=== PATIENT | male | born 1960 | race Caucasian/White ===

== ENCOUNTER 2022-06-23 00:29 | Emergency (ER) | payer MEDICARE, MEDICAID, SELFPAY ==
[2022-06-23 00:40] VITALS: BP 164/94; RESP 18; TEMP 36.6
--- NOTE | 2022-06-23 00:45 | CRLHL7_ITS ---
For Patients: As a result of the Century Cures Act, medical imaging exams and procedure reports are released immediately into your electronic medical record. You may view this report before your referring provider. If you have questions, please contact your health care provider. INDICATION: Status post fall with head trauma. COMPARISON: CT of the head from 07/23/2020 TECHNIQUE: CT examination of the head was performed with 3 mm thick axial and 2 mm thick coronal and sagittal sections without intravenous contrast. Images were obtained from the vertex of the skull through the skull base, and I examined the images with the brain and bone windows. Please note that all CT scans at this facility use dose modulation, iterative reconstruction, and/or weight-based dosing when appropriate to reduce radiation dose to as low as reasonably achievable. FINDINGS: There is stable mild dilatation of the ventricles and sulci representing age-appropriate atrophy. The brain is otherwise normal in appearance for the patient`s age on today`s study, with no sign of mass lesion, mass effect, hemorrhage, or edema. The visualized portions of the orbits are normal in appearance. The visualized paranasal sinuses and mastoids are clear. The osseous structures are normal in their appearance with no sign of abnormality in the skull base or calvarium. IMPRESSION: No sign of closed head injury. Stable mild cerebral atrophy. Normal noncontrast CT of the head for the patient`s age. Please note that all CT scans at this facility use dose modulation, iterative reconstruction, and/or weight-based dosing when appropriate to reduce radiation dose to as low as reasonably achievable. Dictated by Jose Sanford MD @ 06/23/2022 1:43:06 AM (Electronically Signed)
--- NOTE | 2022-06-23 00:56 | ED.NURSE ---
security sees pt car on camera and appears to have drove self in.
[2022-06-23 01:29] LABS: Basophils Absolute Auto 0.02 K/uL (0.00-0.30); Basophils Percent Auto 0.2 % (0.0-3.0); Eosinophils Absolute Auto 0.08 K/uL (0.00-0.50); Eosinophils Percent Auto 0.8 % (0.0-7.0); Hematocrit 38.9 % (37.0-53.0); Hemoglobin* 13.3 gm/dL (13.5-17.5); Immature Granulocytes Abs Auto 0.03 K/uL (0.00-0.30); Lymphocytes Absolute Auto 2.57 K/uL (0.90-2.90); Lymphocytes Percent Auto 25.5 % (20-44); Mean Corpuscular HGB Conc 34 gm/dL (32-36); Mean Corpuscular Hemoglobin 30 pg (26-34); Mean Corpuscular Volume 87 fL (80-100); Monocytes Percent Auto 9.7 % (0.0-11.0); Neutrophils Absolute Auto 6.38 K/uL (1.7-7.0); Neutrophils Percent Auto 63.5 % (42.0-72.0); Platelet Count* 222 K/uL (140-440); RDW Coefficient of Variation % 12.2 % (11.5-15.5); Red Blood Count 4.47 m/uL (4.30-5.90); White Blood Count* 10.06 K/uL (4.50-11.00)
[2022-06-23 01:36] LABS: Slide Review Reflex No
[2022-06-23 02:00] VITALS: BP 164/94; PULSE 78; RESP 18; TEMP 36.6; O2SAT 98
[2022-06-23 02:04] LABS: Chloride* 101 mmol/L (96-114)
[2022-06-23 02:05] LABS: Potassium* 3.5 mmol/L (3.6-5.1); Sodium* 136 mmol/L (135-149)
[2022-06-23 02:07] LABS: Creatinine* 0.9 mg/dL (0.5-1.5); Estimated Glomerular Filt Rate 96 ml/min
[2022-06-23 02:08] LABS: Alanine Aminotransferase* 35 U/L (4-50); Alkaline Phosphatase* 137 U/L (40-150); Aspartate Amino Transferase* 42 U/L (12-35); Bilirubin Direct* 0.2 mg/dL (0.0-0.5); Bilirubin Total* 0.6 mg/dL (0.1-1.5); Blood Urea Nitrogen* 12 mg/dL (7-30); Calcium* 8.4 mg/dL (8.4-10.6); Carbon Dioxide* 31 mmol/L (20-32); Glucose* 96 mg/dL (60-115); Total Protein* 6.9 g/dL (6.0-8.3)
[2022-06-23 02:11] LABS: C Reactive Protein* < 0.5 mg/dL (0.5-1.0); Ethanol* < 0.01 % (0.01-0.03)
--- NOTE | 2022-06-23 02:31 | ED_ITS ---
HPI - General Adult General Date Seen: 06/23/22 Chief complaint: Fall/Minor Trauma Stated complaint: Passed out, hit head, Dizzy, vomiting Time Seen by Provider: 06/23/22 00:47 Source: patient History of Present Illness HPI narrative: Patient is a 62-year-old male who comes in after a fall earlier tonight. He says that he was getting ready to get the shower when he started to feel dizzy. He woke up sometime later having fallen, he hit his head he thinks on the bench in the shower. He is not sure how long he was unconscious, but there was a show on the TV that had progressed to some degree, making him think that he was out for some period of time. He says he remembers feeling dizzy, he does not remember having any palpitations or chest pain, feeling short of breath, or otherwise symptomatic. He says he has never passed out before, but he does say that he had an episode of low blood pressure here in the ER once where people ran and brought the crash cart. He says that nothing else really happened, but he knows that his blood pressure was low. Since then, he has not had any problems. I did see him back in January for kidney stones, and at that time he was scheduled to follow-up with Cardiology. He does have a history of some angina I believe which has been medically managed, he has never had any stents or bypass surgery. He tells me that he ended up having COVID and was unable to make that appointment, but also tells me he has not needed any nitroglycerin since I saw him last.Since hitting his head, he has had a mild headache. This was at 5:00 p.m.. He comes into the ER at 1:00 a.m.. He says he was not going to come in at all, but his girlfriend insisted that he get checked out. He has vomited a couple of times, he says he does not feel nauseated now, but he did vomit once after arriving here. He had an episode of dizziness as well, which he says was because he stood up too fast. He has not had any further fainting. He did not lose bowel or bladder control, did not bite his tongue, does not re port any postictal type symptoms, although he was alone at the time of this episode. He has a couple of red hammonds on his forehead, denies any other injuries from the fall. Denies neck pain. Denies any chest or back pain, extremity pain. Denies any substance use. Drove himself here. Related Data Home Medications Medication Instructions Recorded Confirmed acyclovir 400 mg tablet 400 mg PO Q12H 06/23/22 06/23/22 albuterol sulfate 90 mcg/actuation 2 puff inhalation Q4H PRN 06/23/22 06/23/22 aerosol inhaler buspirone 10 mg tablet 10 mg PO TID PRN 06/23/22 06/23/22 cyclobenzaprine 10 mg tablet 10 mg PO TID PRN 06/23/22 06/23/22 escitalopram oxalate 10 mg tablet 10 mg PO DAILY 06/23/22 06/23/22 famotidine 40 mg tablet 40 mg PO Q12H 06/23/22 06/23/22 gabapentin 600 mg tablet 600 mg PO TID 06/23/22 06/23/22 hydralazine 10 mg tablet 10 mg PO BID 06/23/22 06/23/22 isosorbide mononitrate 30 mg 30 mg PO DAILY 06/23/22 06/23/22 tablet,extended release 24 hr linaclotide 290 mcg capsule 290 mcg PO DAILY 06/23/22 06/23/22 (Linzess) metoprolol tartrate 25 mg tablet 25 mg PO BID 06/23/22 06/23/22 mirtazapine 15 mg tablet 15 mg PO DAILY 06/23/22 06/23/22 nitroglycerin 0.4 mg sublingual 0.4 mg sublingual Q5M PRN 06/23/22 06/23/22 tablet oxycodone-acetaminophen 10 mg-325 1 tab PO Q6H PRN 06/23/22 06/23/22 mg tablet quetiapine 200 mg tablet 200 mg PO HS 06/23/22 06/23/22 quetiapine 50 mg tablet 50 mg PO BID 06/23/22 06/23/22 rosuvastatin 40 mg tablet 40 mg PO HS 06/23/22 06/23/22 trazodone 50 mg tablet 50 mg PO HS 06/23/22 06/23/22 Allergies Allergy/AdvReac Type Severity Reaction Status Date / Time duloxetine Allergy Severe Swelling Verified 06/23/22 01:41 of Lips/Tongue tramadol Allergy Severe Seizure Verified 06/23/22 01:41 amitriptyline Allergy Intermediate Blacks Out Verified 06/23/22 01:41 amlodipine [From Norvasc] Allergy Intermediate Edema Verified 06/23/22 01:41 citalopram Allergy Intermediate Verified 06/23/22 01:41 fluoxetine [From Prozac] Allergy Intermediate Verified 06/23/22 01:41 paroxetine [From Paxil] Allergy Intermediate Blacks Out Verified 06/23/22 01:41 hydrocodone Allergy Mild Dermatitis Verified 06/23/22 01:41 Review of Systems Status of ROS: Reports: 10 or more systems reviewed and unremarkable except as noted in History and below [facility] Medical History No significant past medical history Surgical History No significant past surgical history Social History Smoking Status: Former smoker How often do you have a drink containing alcohol: never How often do you have six or more drinks on one occasion: Never AUDIT-C Alcohol total score: 0 Non-prescribed substance use: denies use Exam Narrative: Exam Narrative: Vital signs as noted above. In general, an alert, well-appearing patient. Head: Normocephalic, he has 2 red abrasion type hammonds on his forehead. No lacerations or hematomas. No other head trauma. Eyes: Pupils are equal reactive. Extraocular movements are full. Conjunctivae are normal. ENT: Mucous membranes are moist. Throat is normal. No facial trauma. Neck: Supple without lymphadenopathy. Nontender to palpation. Heart: Regular rate and rhythm. No murmur or rub. Lungs: Clear bilaterally. No increased work of breathing, crackles or wheezes. Chest trauma. Abdomen: Soft and nontender. No organomegaly. Back: Nontender to palpation. Extremities: Well perfused. No edema. No calf tenderness. Pulses intact. Neurologic: Patient is alert and oriented to person and place. Speech is fluent. Face is symmetric. Moves all extremities equally. Affect: Normal. Skin: Warm and dry. Well perfused. Otherwise atraumatic. Const: Vital Signs, click to edit/add: Vital Signs - 24 hr 06/23/22 00:40 06/23/22 02:00 06/23/22 03:12 Temperature 97.8 F 97.8 F 97.8 F Pulse Rate [Pulse Oximeter] 78 78 Respiratory Rate 18 18 18 Blood Pressure [Ri ght Upper Arm] 164/94 H 164/94 H 154/84 H Pulse Oximetry 98 Oxygen Delivery Me thod Room Air Room Air Course Course Hospital Course: On arrival, patient had an EKG which by my review showed a normal sinus rhythm, ventricular rate of 72 beats per minute. Overall, EKG is normal. He has a mm of ST elevation in V2 only. No reciprocal ST depression. As I look through old EKGs, V2 shows a hint of ST elevation in previous EKGs although not to the degree of this EKG. I did repeat his EKG about an hour and half later. It remains unchanged with the same approximately [address] elevation in lead V2. A point of care troponin was 0. Given that he presented to the ER about 8 hours after this event, my suspicion of this representing anything ischemic was very low. He did go over for head CT, by my review this did not show any evidence of intracranial hemorrhage. The final radiology report is as follows:No sign of closed head injury. Stable mild cerebral atrophy. Normal noncontrast CT of the head for the patient`s age. I did elect to check some other labs, which are overall unremarkable. His white blood cell count is 10, hemoglobin is 13.3. Potassium is 3.5, otherwise electrolytes are all and tired early normal. LFTs are unremarkable. CRP is normal. Blood alcohol is 0. I am going to check a 2nd troponin, and assuming this is normal, I think it is reasonable to let him go home. The etiology of his syncopal episode remains unclear. He will need follow-up with primary care. I do not think it is impossible that this could represent a seizure, particularly with the prolonged duration that he feels that he was unconscious. A cardiac etiology obviously also cannot be ruled out. I think orthostasis is less likely given the absence of any reason for him to be dehydrated, and with out any evidence of hypotension or tachycardia here. I do not have any reason to suspect pulmonary embolism therefore I did not do a D-dimer; he is not short of breath, hypoxic, tachycardic, does not have any specific risk factors. In terms of his head injury, he has had a couple episodes of vomiting now and has a mild headache, discussed that at a minimum I think he has a mild concussion, and we discussed what to expect from that standpoint. However, there is no evidence of more severe head injury. Vital Signs Vital signs: Initial Vital Signs Temperature 97.8 F 06/23/22 00:40 Temperature Source Temporal Artery Scan 06/23/22 00:40 Pulse Rhythm 06/23/22 00:40 Pulse Strength 3+ Normal 06/23/22 00:40 Respiratory Rate 18 06/23/22 00:40 Blood Pressure 164/94 H 06/23/22 00:40 Blood Pressure Mean 117 06/23/22 00:40 Blood Pressure Position Supine 06/23/22 00:40 Oxygen Delivery Method 06/23/22 00:40 Vital Signs Temperature 97.8 F 06/23/22 00:40 Respiratory Rate 18 06/23/22 00:40 Blood Pressure 164/94 H 06/23/22 00:40 Oxygen Delivery Method 06/23/22 00:40 Temperature 97.8 F 06/23/22 03:12 Pulse Rate 78 06/23/22 03:12 Respiratory Rate 18 06/23/22 03:12 Blood Pressure 154/84 H 06/23/22 03:12 Pulse Oximetry 98 06/23/22 02:00 Oxygen Delivery Method 06/23/22 02:00 Medical Decision Making Lab Data Labs: Lab Results 06/23/22 06/23/22 06/23/22 Range/Units 01:20 01:20 01:20 WBC 10.06 (4.50-11.00) K/uL RBC 4.47 (4.30-5.90) m/uL Hgb 13.3 L (13.5-17.5) gm/dL Hct 38.9 (37.0-53.0) % MCV 87 (80-100) fL MCH 30 (26-34) pg MCHC 34 (32-36) gm/dL RDW Coeff of Ron 12.2 (11.5-15.5) % Plt Count 222 (140-440) K/uL Neut % (Auto) 63.5 (42.0-72.0) % Lymph % (Auto) 25.5 (20-44) % [place] % (Auto) 9.7 (0.0-11.0) % Eos % (Auto) 0.8 (0.0-7.0) % Baso % (Auto) 0.2 (0.0-3.0) % Neut # (Auto) 6.38 (1.7-7.0) K/uL Lymph # (Auto) 2.57 (0.90-2.90) K/uL [place] # (Auto) 1.00 H (0.00-0.90) K/UL Eos # (Auto) 0.08 (0.00-0.50) K/uL Baso # (Auto) 0.02 (0.00-0.30) K/uL Abs Immat Gran (auto) 0.03 (0.00-0.30) K/uL Sodium 136 (135-149) mmol/L Potassium 3.5 L (3.6-5.1) mmol/L Chloride 101 (96-114) mmol/L Carbon Dioxide 31 (20-32) mmol/L BUN 12 (7-30) mg/dL Creatinine 0.9 (0.5-1.5) mg/dL Estimated GFR 96 ml/min Glucose 96 (60-115) mg/dL Lactate Cancelled Calcium 8.4 (8.4-10.6) mg/dL Total Bilirubin 0.6 (0.1-1.5) mg/dL Direct Bilirubin 0.2 (0.0-0.5) mg/dL AST 42 H (12-35) U/L ALT 35 (4-50) U/L Alkaline Phosphatase 137 (40-150) U/L C-Reactive Protein < 0.5 L (0.5-1.0) mg/dL Total Protein 6.9 (6.0-8.3) g/dL Albumin 4.0 (3.3-5.0) g/dL Ethyl Alcohol < 0.01 L (0.01-0.03) % POC Troponin I (0.01-0.04) ng/ml 06/23/22 06/23/22 Range/Units 01:20 02:50 WBC (4.50-11.00) K/uL RBC (4.30-5.90) m/uL Hgb (13.5-17.5) gm/dL Hct (37.0-53.0) % MCV (80-100) fL MCH (26-34) pg MCHC (32-36) gm/dL RDW Coeff of Ron (11.5-15.5) % Plt Count (140-440) K/uL Neut % (Auto) (42.0-72.0) % Lymph % (Auto) (20-44) % [place] % (Auto) (0.0-11.0) % Eos % (Auto) (0.0-7.0) % Baso % (Auto) (0.0-3.0) % Neut # (Auto) (1.7-7.0) K/uL Lymph # (Auto) (0.90-2.90) K/uL [place] # (Auto) (0.00-0.90) K/UL Eos # (Auto) (0.00-0.50) K/uL Baso # (Auto) (0.00-0.30) K/uL Abs Immat Gran (auto) (0.00-0.30) K/uL Sodium (135-149) mmol/L Potassium (3.6-5.1) mmol/L Chloride (96-114) mmol/L Carbon Dioxide (20-32) mmol/L BUN (7-30) mg/dL Creatinine (0.5-1.5) mg/dL Estimated GFR ml/min Glucose (60-115) mg/dL Lactate Calcium (8.4-10.6) mg/dL Total Bilirubin (0.1-1.5) mg/dL Direct Bilirubin (0.0-0.5) mg/dL AST (12-35) U/L ALT (4-50) U/L Alkaline Phosphatase (40-150) U/L C-Reactive Protein (0.5-1.0) mg/dL Total Protein (6.0-8.3) g/dL Albumin (3.3-5.0) g/dL Ethyl Alcohol (0.01-0.03) % POC Troponin I 0.00 L 0.00 L (0.01-0.04) ng/ml Discharge Plan Discharge Clinical Impression: Concussion, Syncope Patient Disposition: Home, Self-Care Condition: Improved Instructions: Syncope (DC), Concussion (ED) Additional Instructions: If you have any further syncopal episodes, return for re-evaluation. Otherwise, primary care and cardiology follow-up as discussed. Prescriptions: No Action acyclovir 400 mg tablet 400 mg PO Q12H Label Comments: TAKE ONE TABLET BY MOUTH TWICE DAILY albuterol sulfate 90 mcg/actuation HFA aerosol inhaler 2 puff INHALATION Q4H PRN Label Comments: Inhale 2 puffs by mouth into the lungs every 4 (four) hours as needed. buspirone 10 mg tablet 10 mg PO TID PRN Label Comments: Take 1 tablet (10 mg) by mouth 3 times a day as needed (anxiety). cyclobenzaprine 10 mg tablet 10 mg PO TID PRN Label Comments: TAKE 1 TABLET BY MOUTH 3 TIMES DAILY NEEDED FOR MUSCLE SPASMS escitalopram oxalate 10 mg tablet 10 mg PO DAILY famotidine 40 mg tablet 40 mg PO Q12H Label Comments: Take 1 tablet (40 mg) by mouth twice a day. gabapentin 600 mg tablet 600 mg PO TID Label Comments: TAKE 2 TABLETS BY MOUTH 3 TIMES DAILY isosorbide mononitrate 30 mg tablet extended release 24 hr 30 mg PO DAILY Label Comments: Take 1 tablet (30 mg) by mouth once daily. hydralazine 10 mg tablet 10 mg PO BID Linzess 290 mcg capsule 290 mcg PO DAILY Label Comments: Take 1 capsule (290 mcg) by mouth once daily. metoprolol tartrate 25 mg tablet 25 mg PO BID Label Comments: Take one-half tablet (12.5 mg) by mouth twice a day. mirtazapine 15 mg tablet 15 mg PO DAILY Label Comments: Take 1 tablet (15 mg) by mouth at bedtime. nitroglycerin 0.4 mg tablet, sublingual 0.4 mg sublingual Q5M PRN Label Comments: place 1 tablet (0.4 mg) under the tongue every 5 (five) minutes as needed for chest pain. Up to 3 doses, call 911 if no relief. oxycodone-acetaminophen 10-325 mg tablet 1 tab PO Q6H PRN quetiapine 200 mg tablet 200 mg PO HS Label Comments: Take 2 tablets (400 mg) by mouth at bedtime. quetiapine 50 mg tablet 50 mg PO BID Label Comments: Take 1 tablet (50 mg) by mouth twice a day for anxiety rosuvastatin 40 mg tablet 40 mg PO HS Label Comments: TAKE ONE TABLET BY MOUTH AT BEDTIME trazodone 50 mg tablet 50 mg PO HS Label Comments: Take 2 tablets (100 mg) by mouth at bedtime as needed for sleep. Follow Up/Referrals: Provider,Not a Local [Primary Care Provider] - Stand Alone Forms: [employer] Info Instructions
[2022-06-23 03:12] VITALS: BP 154/84; PULSE 78; RESP 18; TEMP 36.6
== END 2022-06-23 03:13 | disposition home or self-care (01) ==
PROVIDERS: Emergency Provider Emergency Medicine
DX: R55 Syncope and collapse (principal); S06.0X1A Concussion with loss of consciousness of 30 minutes or less, initial encounter; W18.2XXA Fall in (into) shower or empty bathtub, initial encounter
CPT/HCPCS: 36415; 70450; 80048; 80076; 82077; 83605; 84484; 85025; 86140; 93005; 99284; 99285

== ENCOUNTER 2022-11-14 12:42 | Outpatient (CLI) | payer MEDICARE, MEDICAID, SELFPAY | END 2022-11-14 12:43 | disposition home or self-care (01) | LOC: AMB 11-15 13:44 | PROVIDERS: Visit Provider Family Medicine | DX: R42 Dizziness and giddiness (principal); R20.0 Anesthesia of skin | CPT/HCPCS: A0998 ==

== ENCOUNTER 2023-06-15 17:45 | Outpatient (CLI) | payer MEDICARE, MEDICAID, SELFPAY | END 2023-06-15 17:46 | disposition home or self-care (01) | LOC: AMB 06-18 15:24 | PROVIDERS: Visit Provider Emergency Medicine Emergency Medical Services | DX: M54.9 Dorsalgia, unspecified (principal) | CPT/HCPCS: A0425; A0427 ==

== ENCOUNTER 2023-06-15 18:02 | Emergency (ER) | payer MEDICARE, MEDICAID, SELFPAY ==
[2023-06-15] VITALS (13 sets, daily range): BP systolic 140–202; BP diastolic 83–183; PULSE 53–89; RESP 18; TEMP 36.6; O2SAT 89–98; BMI 32.6
--- NOTE | 2023-06-15 18:20 | CRLHL7_ITS ---
For Patients: As a result of the Cures Act, medical imaging exams and procedure reports are released immediately into your electronic medical record. You may view this report before your referring provider. If you have questions, please contact your health care provider. INDICATION: Right flank pain history of stones and bowel obstructions. TECHNIQUE: CT abdomen and pelvis without contrast. COMPARISON: January 29, 2022 FINDINGS: Lower chest: Unremarkable. Liver: Unremarkable. Spleen: Unremarkable. Pancreas: Unremarkable. Gallbladder and bile ducts: Status post cholecystectomy. Stable extrahepatic biliary enlargement. Kidneys: Stable mildly enlarged right renal collecting system and renal pelvis and proximal ureter, with previously described calcified ureteropelvic junction stone no longer seen, but there is a 2.2 millimeter stone located in the right mid ureter, image 63 of series 2. Left kidney unremarkable. No left kidney or ureteral stones and no hydronephrosis. Adrenal glands: Unremarkable. GI tract: Unremarkable. Appendix is not seen. Vascular structures: Unremarkable. Lymph nodes: Unremarkable. Miscellaneous: Unremarkable. No free air or significant free fluid. Pelvic Organs: Stable mildly enlarged prostate gland with central calcification. Unremarkable. Bones: Stable lumbosacral junction metallic fusion components. Mild multilevel degenerative disc disease. No acute/aggressive osseous lesions. IMPRESSION: 1. 2.2 millimeter stone in the right proximal-mid ureter, this appears to cause mild obstruction. No other ureteral calculi/evidence of urinary obstruction. 2. No acute bowel abnormality. 3. Stable extrahepatic biliary enlargement, status post cholecystectomy. 4. Stable additional chronic and postoperative change, as above. Please note that all CT scans at this facility use dose modulation, iterative reconstruction, and/or weight-based dosing when appropriate to reduce radiation dose to as low as reasonably achievable. Dictated by Humberto Rowan MD @ 06/15/2023 8:54:47 PM (Electronically Signed)
--- NOTE | 2023-06-15 18:33 | ED_ITS ---
HPI - General Adult General Chief complaint: Flank Pain Stated complaint: bowel obstruction Time Seen by Provider: 06/15/23 18:05 History of Present Illness HPI narrative: This 63-year-old male comes in by ambulance reporting right flank pain that began 2 days ago. He comes in rather dramatically with complaints of lots of pain and has nausea and vomiting. He did receive a dose of Dilaudid from ambulance personnel on the way here and he tells me that this did not do anything for his pain. Checking his record he is prescribed 180 tablets of oxycodone monthly. I mentioned this to him and he states that he has been cutting back and reports that he had not taking any oxycodone yet today. He reports that his primary physician had told him that it he may not be having constipation from the opiates because he has been taking it for so long. The patient does report constipation and states that he has been taking some medicines to correct this and only has water a coming through. He does not report any fevers. He does have a history of kidney stones and is not sure if this may be what is causing his pain. Related Data Home Medications Medication Instructions Recorded Confirmed acyclovir 400 mg tablet 400 mg PO Q12H 06/23/22 06/23/22 albuterol sulfate 90 mcg/actuation 2 puff inhalation Q4H PRN 06/23/22 06/23/22 aerosol inhaler buspirone 10 mg tablet 10 mg PO TID PRN 06/23/22 06/23/22 cyclobenzaprine 10 mg tablet 10 mg PO TID PRN 06/23/22 06/23/22 escitalopram oxalate 10 mg tablet 10 mg PO DAILY 06/23/22 06/23/22 famotidine 40 mg tablet 40 mg PO Q12H 06/23/22 06/23/22 gabapentin 600 mg tablet 600 mg PO TID 06/23/22 06/23/22 hydralazine 10 mg tablet 10 mg PO BID 06/23/22 06/23/22 isosorbide mononitrate 30 mg 30 mg PO DAILY 06/23/22 06/23/22 tablet,extended release 24 hr linaclotide 290 mcg capsule 290 mcg PO DAILY 06/23/22 06/23/22 (Linzess) metoprolol tartrate 25 mg tablet 25 mg PO BID 06/23/22 06/23/22 mirtazapine 15 mg tablet 15 mg PO DAILY 06/23/22 06/23/22 nitroglycerin 0.4 mg sublingual 0.4 mg sublingual Q5M PRN 06/23/22 06/23/22 tablet oxycodone-acetaminophen 10 mg-325 1 tab PO Q6H PRN 06/23/22 06/23/22 mg tablet quetiapine 200 mg tablet 200 mg PO HS 06/23/22 06/23/22 quetiapine 50 mg tablet 50 mg PO BID 06/23/22 06/23/22 rosuvastatin 40 mg tablet 40 mg PO HS 06/23/22 06/23/22 trazodone 50 mg tablet 50 mg PO HS 06/23/22 06/23/22 Allergies Allergy/AdvReac Type Severity Reaction Status Date / Time duloxetine Allergy Severe Swelling Verified 06/23/22 01:41 of Lips/Tongue tramadol Allergy Severe Seizure Verified 06/23/22 01:41 amitriptyline Allergy Intermediate Blacks Out Verified 06/23/22 01:41 amlodipine [From Norvasc] Allergy Intermediate Edema Verified 06/23/22 01:41 citalopram Allergy Intermediate Verified 06/23/22 01:41 fluoxetine [From Prozac] Allergy Intermediate Verified 06/23/22 01:41 paroxetine [From Paxil] Allergy Intermediate Blacks Out Verified 06/23/22 01:41 hydrocodone Allergy Mild Dermatitis Verified 06/23/22 01:41 Review of Systems Status of ROS: Reports: 10 or more systems reviewed and unremarkable except as noted in History and below Narrative: Constitutional: No fevers, no weight gain or loss. Chronic pain on narcotics. Eyes: No discharge. No vision changes. HENT: No congestion, no sore throat, no ear pain. Cardiovascular: No chest pain, no palpitations. Respiratory: No shortness of breath, no wheezes, no cough. Gastrointestinal: Nausea and vomiting. Right flank pain. Genitourinary: No dysuria, no hematuria. Musculoskeletal: Normal range of motion. Skin: No rashes, no pruritis. Neurological: No dizziness, weakness, sensory change, speech change. Endo/Heme/Allergies: No bruising or bleeding. No polydipsia. Pysch: no suicidality, no anxiety, no insomnia. All other systems reviewed and are negative. [facility] Medical History (Updated 06/15/23 @ 21:05 by French Leiva MD) Ureteral stent present ?Z96.0 - Presence of urogenital implants (ICD-10) Right ureteral stone ?N20.1 - Calculus of ureter (ICD-10) Pancreatitis ?K85.90 - Acute pancreatitis without necrosis or infection, unspecified (ICD- 10) Opioid dependence ?F11.20 - Opioid dependence, uncomplicated (ICD-10) Lumbago ?M54.50 - Low back pain, unspecified (ICD-10) Ingrown toenail ?L60.0 - Ingrowing nail (ICD-10) HTN (hypertension) ?I10 - Essential (primary) hypertension (ICD-10) History of substance abuse ?F19.11 - Other psychoactive substance abuse, in remission (ICD-10) Chronic constipation ?K59.09 - Other constipation (ICD-10) Chronic back pain ?M54.9 - Dorsalgia, unspecified (ICD-10) ?G89.29 - Other chronic pain (ICD-10) Asthma ?J45.909 - Unspecified asthma, uncomplicated (ICD-10) Aortic regurgitation ?I35.1 - Nonrheumatic aortic (valve) insufficiency (ICD-10) Angina pectoris ?I20.9 - Angina pectoris, unspecified (ICD-10) Anxiety ?F41.9 - Anxiety disorder, unspecified (ICD-10) Surgical History (Updated 06/15/23 @ 20:07 by Cuauhtemoc Roe RN) History of lumbar laminectomy ?Z98.890 - Other specified postprocedural states (ICD-10) History of lumbar fusion ?Z98.1 - Arthrodesis status (ICD-10) History of cholecystectomy ?Z90.49 - Acquired absence of other specified parts of digestive tract (ICD- 10) History of appendectomy ?Z90.49 - Acquired absence of other specified parts of digestive tract (ICD- 10) Social History Smoking Status: Former smoker Do you use any of these nicotine containing products: None Second hand tobacco smoke exposure: No How often do you have a drink containing alcohol: never How often do you have six or more drinks on one occasion: Never AUDIT-C Alcohol total score: 0 Non-prescribed substance use: denies use service: No Exam Narrative: Exam Narrative: Constitutional: Well-developed, well-nourished. Frequent efforts to vomit. HEENT: Normocephalic, atraumatic. Neck: Normal range of motion. Nontender. Supple. Heart: Regular. No murmurs. Normal rate. Intact distal pulses. Lungs: Clear to auscultation. No chest discomfort. No wheezes, rhonchi, or rales. Abdomen: Normal bowel sounds. Nontender. No rebound tenderness. Right flank pain. Genitalia: Deferred. Back: No midline tenderness. Normal range of motion. Right flank pain. Extremities: Normal range of motion. No injury. Skin: Intact. No rash. Warm. No erythema or pallor. Neurologic: No altered sensation. No weakness. Alert and oriented. Psychiatric: No suicidality. No anxiety or depression. No insomnia. Nursing notes and vitals signs are reviewed. Const: Vital Signs, click to edit/add: Vital Signs - 24 hr 06/15/23 18:09 06/15/23 18:42 06/15/23 18:45 Temperature 97.8 F Pulse Rate 53 L 60 Pulse Rate [Right Pulse Oximeter] 66 Respiratory Rate 18 Blood Pressure 191/83 H Blood Pressure [Ri ght Upper Arm] 202/95 H Pulse Oximetry 94 95 98 Oxygen Delivery Me thod Room Air 06/15/23 19:02 06/15/23 19:30 06/15/23 19:33 Temperature Pulse Rate 60 58 L 74 Pulse Rate [Right Pulse Oximeter] Respiratory Rate Blood Pressure 199/183 H Blood Pressure [Ri ght Upper Arm] Pulse Oximetry 98 98 98 Oxygen Delivery Me thod Course Vital Signs Vital signs: Initial Vital Signs Temperature 97.8 F 06/15/23 18:09 Temperature Source Temporal Artery Scan 06/15/23 18:09 Pulse Rate 66 06/15/23 18:09 Respiratory Rate 18 06/15/23 18:09 Blood Pressure 202/95 H 06/15/23 18:09 Blood Pressure Mean 130 H 06/15/23 18:09 Blood Pressure Position Sitting 06/15/23 18:09 Pulse Oximetry 94 06/15/23 18:09 Oxygen Delivery Method Room Air 06/15/23 18:09 Vital Signs Temperature 97.8 F 06/15/23 18:09 Pulse Rate 66 06/15/23 18:09 Respiratory Rate 18 06/15/23 18:09 Blood Pressure 202/95 H 06/15/23 18:09 Pulse Oximetry 94 06/15/23 18:09 Oxygen Delivery Method Room Air 06/15/23 18:09 Temperature 97.8 F 06/15/23 18:09 Pulse Rate 74 06/15/23 19:33 Respiratory Rate 18 06/15/23 18:09 Blood Pressure 199/183 H 06/15/23 19:33 Pulse Oximetry 98 06/15/23 19:33 Oxygen Delivery Method Room Air 06/15/23 18:09 Medical Decision Making MDM Narrative Medical decision making narrative: This patient comes in with right flank pain and vomiting with lots of squirming and drama regarding the intense pain is feeling. He does have history of kidney stones. He does not report any symptoms of dysuria. He did receive an IV dose of Dilaudid prior to his visit here as he came by ambulance. The patient did receive 30 mg of Toradol intravenously and Zofran [address] scan of the abdomen and pelvis is acquired without contrast. This returns with evidence of a 2.2 mm stone in the right proximal or mid ureter. There is just mild sign of obstruction. No other acute abnormality is noted. The patient did receive an IM injection of Dilaudid 1 mg. He is okay to be discharged home and received prescriptions for Toradol and Zofran. These prescriptions came from [facility] and included 20 tablets of Toradol and 10 tablets of Zofran. The patient has oxycodone at home that he can also use for pain relief. Lab Data Labs: Lab Results 06/15/23 Range/Units 18:34 WBC 6.13 (4.50-11.00) K/uL RBC 5.27 (4.30-5.90) m/uL Hgb 15.5 (13.5-17.5) gm/dL Hct 44.5 (37.0-53.0) % MCV 84 (80-100) fL MCH 29 (26-34) pg MCHC 35 (32-36) gm/dL RDW Coeff of Orn 11.7 (11.5-15.5) % Plt Count 228 (140-440) K/uL Neut % (Auto) 50.6 (42.0-72.0) % Lymph % (Auto) 41.9 (20-44) % Carver % (Auto) 5.7 (0.0-11.0) % Eos % (Auto) 1.3 (0.0-7.0) % Baso % (Auto) 0.3 (0.0-3.0) % Neut # (Auto) 3.10 (1.7-7.0) K/uL Lymph # (Auto) 2.57 (0.90-2.90) K/uL Carver # (Auto) 0.30 (0.00-0.90) K/UL Eos # (Auto) 0.08 (0.00-0.50) K/uL Baso # (Auto) 0.02 (0.00-0.30) K/uL Abs Immat Gran (auto) 0.01 (0.00-0.30) K/uL Imm/Tot Granulo (auto) 0.2 % Sodium 140 (135-149) mmol/L Potassium 3.5 L (3.6-5.1) mmol/L Chloride 101 (96-114) mmol/L Carbon Dioxide 30 (20-32) mmol/L BUN 11 (7-30) mg/dL Creatinine 1.1 (0.5-1.5) mg/dL Estimated Creat Clear 63.43 Estimated GFR 75 ml/min Glucose 148 H (60-115) mg/dL Calcium 9.8 (8.4-10.6) mg/dL Total Bilirubin 0.9 (0.1-1.5) mg/dL Direct Bilirubin 0.1 (0.0-0.5) mg/dL AST 46 H (12-35) U/L ALT 57 H (4-50) U/L Alkaline Phosphatase 159 H (40-150) U/L Total Protein 8.1 (6.0-8.3) g/dL Albumin 4.6 (3.3-5.0) g/dL Lipase 115 (23-300) U/L Discharge Plan Discharge Clinical Impression: Calculus, ureteral Patient Disposition: Home, Self-Care Condition: Improved Additional Instructions: Take medications as prescribed. Toradol 10 mg, 20 tablets dispensed, can be taken 3 times daily. Zofran 4 mg, 10 tablets dispensed, can be taken every 4-6 hours as needed for nausea. Follow up with MD or return if worsening. Prescriptions: No Action acyclovir 400 mg tablet 400 mg PO Q12H Patient Comments: TAKE ONE TABLET BY MOUTH TWICE DAILY albuterol sulfate 90 mcg/actuation HFA aerosol inhaler 2 puff INHALATION Q4H PRN Patient Comments: Inhale 2 puffs by mouth into the lungs every 4 (four) hours as needed. buspirone 10 mg tablet 10 mg PO TID PRN Patient Comments: Take 1 tablet (10 mg) by mouth 3 times a day as needed (anxiety). cyclobenzaprine 10 mg tablet 10 mg PO TID PRN Patient Comments: TAKE 1 TABLET BY MOUTH 3 TIMES DAILY NEEDED FOR MUSCLE SPASMS escitalopram oxalate 10 mg tablet 10 mg PO DAILY famotidine 40 mg tablet 40 mg PO Q12H Patient Comments: Take 1 tablet (40 mg) by mouth twice a day. gabapentin 600 mg tablet 600 mg PO TID Patient Comments: TAKE 2 TABLETS BY MOUTH 3 TIMES DAILY isosorbide mononitrate 30 mg tablet extended release 24 hr 30 mg PO DAILY Patient Comments: Take 1 tablet (30 mg) by mouth once daily. hydralazine 10 mg tablet 10 mg PO BID Linzess 290 mcg capsule 290 mcg PO DAILY Patient Comments: Take 1 capsule (290 mcg) by mouth once daily. metoprolol tartrate 25 mg tablet 25 mg PO BID Patient Comments: Take one-half tablet (12.5 mg) by mouth twice a day. mirtazapine 15 mg tablet 15 mg PO DAILY Patient Comments: Take 1 tablet (15 mg) by mouth at bedtime. nitroglycerin 0.4 mg tablet, sublingual 0.4 mg sublingual Q5M PRN Patient Comments: place 1 tablet (0.4 mg) under the tongue every 5 (five) minutes as needed for chest pain. Up to 3 doses, call 911 if no relief. oxycodone-acetaminophen 10-325 mg tablet 1 tab PO Q6H PRN quetiapine 200 mg tablet 200 mg PO HS Patient Comments: Take 2 tablets (400 mg) by mouth at bedtime. quetiapine 50 mg tablet 50 mg PO BID Patient Comments: Take 1 tablet (50 mg) by mouth twice a day for anxiety rosuvastatin 40 mg tablet 40 mg PO HS Patient Comments: TAKE ONE TABLET BY MOUTH AT BEDTIME trazodone 50 mg tablet 50 mg PO HS Patient Comments: Take 2 tablets (100 mg) by mouth at bedtime as needed for sleep. Follow Up/Referrals: Provider,Not a Local [Primary Care Provider] - Stand Alone Forms: [facility] Info Instructions
[2023-06-15] MEDS: 0.9 % SODIUM CHLORIDE 1000 ml 1,000 ML IV (18:39)
[2023-06-15] MEDS: KETOROLAC 30 MG/ML inj IVP (18:41)
[2023-06-15] MEDS: ONDANSETRON 2 MG/ML inj 4 MG IVP (18:41)
[2023-06-15 18:47] LABS: Basophils Absolute Auto 0.02 K/uL (0.00-0.30); Basophils Percent Auto 0.3 % (0.0-3.0); Eosinophils Absolute Auto 0.08 K/uL (0.00-0.50); Eosinophils Percent Auto 1.3 % (0.0-7.0); Hematocrit 44.5 % (37.0-53.0); Hemoglobin* 15.5 gm/dL (13.5-17.5); Immature Granulocytes Abs Auto 0.01 K/uL (0.00-0.30); Immature Granulocytes Pct Auto 0.2 %; Lymphocytes Absolute Auto 2.57 K/uL (0.90-2.90); Lymphocytes Percent Auto 41.9 % (20-44); Mean Corpuscular HGB Conc 35 gm/dL (32-36); Mean Corpuscular Hemoglobin 29 pg (26-34); Mean Corpuscular Volume 84 fL (80-100); Monocytes Percent Auto 5.7 % (0.0-11.0); Neutrophils Percent Auto 50.6 % (42.0-72.0); Platelet Count* 228 K/uL (140-440); RDW Coefficient of Variation % 11.7 % (11.5-15.5); Red Blood Count 5.27 m/uL (4.30-5.90); White Blood Count* 6.13 K/uL (4.50-11.00)
[2023-06-15 18:51] LABS: Slide Review Reflex No
[2023-06-15 18:55] LABS: Albumin* 4.6 g/dL (3.3-5.0); Chloride* 101 mmol/L (96-114); Potassium* 3.5 mmol/L (3.6-5.1); Sodium* 140 mmol/L (135-149)
[2023-06-15 18:57] LABS: Creatinine* 1.1 mg/dL (0.5-1.5); Est. Creatinine Clearance* 63.43; Estimated Glomerular Filt Rate 75 ml/min
[2023-06-15 18:58] LABS: Alanine Aminotransferase* 57 U/L (4-50); Alkaline Phosphatase* 159 U/L (40-150); Aspartate Amino Transferase* 46 U/L (12-35); Bilirubin Direct* 0.1 mg/dL (0.0-0.5); Bilirubin Total* 0.9 mg/dL (0.1-1.5); Blood Urea Nitrogen* 11 mg/dL (7-30); Calcium* 9.8 mg/dL (8.4-10.6); Carbon Dioxide* 30 mmol/L (20-32); Glucose* 148 mg/dL (60-115); Lipase* 115 U/L (23-300); Total Protein* 8.1 g/dL (6.0-8.3)
[2023-06-15] MEDS: HYDROmorphone 0.5 mg/0.5 ml inj 1 MG IVP (19:31)
--- NOTE | 2023-06-15 19:32 | ED.NURSE ---
1 mg Dilaudid ordered IV. After discussion with Dr. Leiva, request for medication to be given IM. Approved by Dr. Leiva to give 1mg Dilaudid IM. Administered in pt's left deltoid.
--- NOTE | 2023-06-15 19:57 | ED.NURSE ---
Pt now resting more comfortably in bed after administration of IM Dilaudid, 1mg. Cardiac monitoring and continuous pulse oximeter in place.
== END 2023-06-15 21:20 | disposition home or self-care (01) ==
PROVIDERS: Emergency Provider Emergency Medicine Emergency Medical Services
DX: N20.1 Calculus of ureter (principal)
CPT/HCPCS: 36415; 74176; 80048; 80076; 81001; 83690; 85025; 96374; 96375; 99284; J1170; J1885; J2405; J7030

== ENCOUNTER 2024-06-13 22:04 | Outpatient (CLI) | payer MEDICARE, SELFPAY ==
--- OUTSIDE RECORDS SUMMARY | 2024-06-16 01:47 | XMS_ITS | Encounter Summary ---
Author Organization [place] Address [address] [facility] [place] [address] Care Team Providers Care Bulk Pigment Reducer Name Role Phone Zackery Clark MD Primary Care Provide r Kanwla Martinez MD Unavailable Malathi Shelton MD Unavailable [phone] Radha Leal MD Unavailable [phone] Hilary Negrete RN Unavailable Zackery Clark MD Unavailable Zackery Clark MD Unavailable [phone] Shi Hernandez MD Primary Care Provider [phone] Denilson Alfonso Chi OD Unavailable [phone] Tierra Cid APRN FAMILY SUPPORT WORKER Unavailable Azeem Rowan OD Unavailable [phone] Reason for Visit * Reason Onset Date Comments MH/CD Inpatient 09/01/2017 Encounter Details Date Type Department Care Team ([facility] st Contact Info) Description 09/01/[address] [facility] Intake [address] [place] [address] Generic, Behavioral Intake, MH/CD Inpatient [...] Shahhan - 09/01/2017 9:13 PM CDT S: [facility] called to place a 58 [...] documented as of this encounter Care Teams Bulk Pigment Reducer Relationship Specialty Start Date End Date Zackery Clark MD PCP - General Family Practice 01/05/16 04/11/19 Zackery Clark MD 2270 [facility] [address] [place] [address] PCP - Assigned PCP 08/17/17 01/19/19 Shi Hernandez MD [address] [place] [address] PCP - General Family Practice 04/12/19 Kanwal Martinez MD [address] [address] Ophthalmology 02/05/16 Malathi Shelton MD [address] [place] [address] [address] [place] [address] Ophthalmology 02/08/16 Radha Leal MD [facility] 909 [facility] [id number] [place] [address] Resident Student in organized health care education/training program 01/07/18 05/17/19 Hilary Negrete RN Nurse Coordinator Neurology 01/28/18 05/10/19 Zackery Clark MD [address] [facility] [address] [place] [address] Assigned PCP 08/17/17 10/30/19 Denilson Alfonso Chi, OD [address] [place] [address] Optometry 07/26/19 Tierra Cid APRN FAMILY SUPPORT WORKER [facility] [address] [place] [address] Assigned PCP 10/31/19 11/01/22 Azeem Rowan OD [address] [place] [address] Assigned Surgical Provider 09/08/20 08/04/21 documented as of this encounter
--- OUTSIDE RECORDS SUMMARY | 2024-06-16 01:47 | XMS_ITS | Continuity of Care Document ---
Author Organization [facility] Address [address] [place] [address] Phone Care Team Providers Care Animal Science Instructor Name Role Phone No Information Unavailable Unavailable [...] Date Provider Providers Copied on Encounter Z [facility], [address], [place], [address], [place] tel:[phone] No Information 2200 9 No Information Z [facility], [address], [place], [address], [place] tel:[phone] [facility] No Information 9 Zoe Donald. [facility], [address], [place], [place], [id number], [place]. tel:[phone] Office/outpa tient visit,est, mod Z [facility], [address], [place], [address], [place] tel:[phone] [facility] No Information 9 Zoe Donald. [facility], [address], [place], [place], [id number], [place]. tel:[phone] Referring Provider: Choco Miller, [facility] [address], [place], [address]. tel:[phone] Office/outpa tient visit,est, mod Z [facility], [address], [place], [address], [place] tel:[phone] [facility] No Information 200 9 Zoe Donald. [facility], [address], [place], [place], [id number], [place]. tel:[phone] Referring Provider: Choco Miller, [facility] [address], [place], [address]. tel:[phone] Office/outpa tient visit,est, mod Z [facility], [address], [place], [address], [place] tel:[phone] [facility] No Information 9 Zoe Donald. [facility], [address], [address], [place], [place], [id number], [place]. tel:[phone] Referring Provider: Choco Miller, [facility] [address], [place], [address]. tel:[phone] Office/outpa tient visit,est, mod Z [facility], [address], [place], [address], [place] tel:[phone] [facility] No Information May-0 1200 9 Zoe Bennett. [facility], [address], [address], [place], [place], [id number], [place]. tel:[phone] Referring Provider: Choco Miller, [facility] [address], [address]. tel:[phone] Z [facility], [address], [place], [address], [place] tel:[phone] [facility] No Information Apr-0 1200 9 Zoebrett Bennett. [facility], [address], [address], [place], [place], [id number], [place]. tel:[phone] Referring Provider: Choco Miller, [facility] [address], [address]. tel:[phone] Z [facility], [address], [address], [place] tel:[phone] [facility] No Information 0 9200 9 Zoebrett Bennett. [facility], [address], [place], [place], [id number], [place]. tel:[phone] Referring Provider: Choco Miller, [facility] [address], [address]. tel:[phone] Z [facility], [address], [place], [address], [place] tel:[phone] [facility] No Information 8-200 9 Zoe Donald. [facility], [address], [address], [place], [id number], [place]. tel:[phone] Referring Provider: Choco Miller, [facility] [address], [address]. tel:[phone] Office/outpa tient visit,est, mod Z [facility], [address], [place], [place], [facility], tel:[phone] [facility] No Information Mar-0 9-200 9 Zoe Bennett. [facility], [address], [place], [place], [address] [place] [address], [place]. tel:[phone] Referring Provider: Choco Miller, [facility] [address], [place], [address]. tel:[phone] Office/outpa tient visit,est, low Z [facility], [address], [place], [place], [facility], tel:[phone] [facility] No Information Mar-0 6-200 9 Jonathan Fields. [facility] , [address], [place], [place], [facility], . tel:[phone] Referring Provider: Donnie Mariee, [facility] [address] [place], [place], [facility]. tel:[phone] Initial inpatient consult, low Z [facility], [address], [place], [place], [facility], tel:[phone] [facility] No Information Mar-0 5-200 9 Jonathan Fields. [facility] , [address], [place], [place], [facility], [place]. tel:[phone] Referring Provider: Choco Miller, [facility] [address], [address]. tel:[phone] Family History Family Member Type Diagnosis Age At Onset No Information Payers Payer name Insurance type Covered libertarian ID Moshedavid jakemarian(s) Katerine [place] [facility] [id number] Social History Type Description Quantity Date Captured [...]
--- OUTSIDE RECORDS SUMMARY | 2024-06-16 01:47 | XMS_ITS | Referral Summary ---
Author Organization [place] Address [address] [facility] [place] [address] Care Team Providers Care Registrar Nurses' Registry Name Role Phone Kanwal Martinez MD Unavailable Malathi Shelton MD Unavailable [phone] Shi Hernandez MD Primary Care Provider [phone] Denilson Alfonso Chi OD Unavailable [phone] Allergies Active Allergy Reactions Criticality Noted [...] Provider review. Agree with goal. Rose Rowan, GEOPHYSICS TEACHER Lumbago 04/23/2007 10/31/2009 Essential hypertension 03/25/200710/09 Overview: [...] Comments Blood Pressure 138/66 10/26/2019 1:15 PM LASER PRINT OPERATOR Pulse 89 10/26/2019 1:15 PM LASER PRINT OPERATOR Temperature 36.8 ??C (98.2 ??F) 10/26/2019 1:15 PM CS T Respiratory Rate 16 10/26/2019 1:15 PM LASER PRINT OPERATOR Oxygen Saturation 99% 10/26/2019 1:15 PM LASER PRINT OPERATOR Inhaled Oxygen Concentration - - Weight 83.5 kg (184 lb) 10/26/2019 1:15 PM LASER PRINT OPERATOR Height 167.6 cm (5' 6) 04/12/2019 4:42 PM CDT Body Mass Index 29.7 04/12/2019 4:42 PM CDT Plan of Treatment Not on file Advance Directives For more information, please contact: [phone] * Full Code (Latest Code Status on [...] 2:11 AM 08/18/2017 4:20 PM Care Teams Registrar Nurses' Registry Relationship Specialty Start Date End Date Shi Hernandez MD [address] [place] [address] PCP - General Family Practice 04/12/19 Kanwal Martinez MD [address] [address] Ophthalmology 02/05/16 Malathi Shelton MD [address] [place] [address] Ophthalmology 02/08/16 Denilson Alfonso Chi, OD [address] [place] [address] Optometry 07/26/19
--- OUTSIDE RECORDS SUMMARY | 2024-06-16 01:47 | XMS_ITS | Encounter Summary ---
Author Organization [place] Address [address] [facility] [place] [address] Care Team Providers Care Scale Balancer Name Role Phone Zackery Clark MD Primary Care Provide r Kanwal Martinez MD Unavailable Malathi Shelton MD Unavailable [phone] Radha Leal MD Unavailable Hilary Negrete RN Unavailable Zackery Clark MD Unavailable Zackery Clark MD Unavailable [phone] Shi Hernandez MD Primary Care Provider [phone] Denilson Alfonso Chi OD Unavailable Tierra Cid APRN INCUBATOR OPERATOR Unavailable Azeem Rowan OD Unavailable [phone] Encounter Details Date Type Department Care Team ([facility] st Contact Info) Description 09/30/2017 Telephone [facility] Intake [address] [place] [address] Generic, Behavioral Intake, Social History [...] AM CST S-Dr Carr orders transfer from [facility] to for MH evaluation. B-Per Bruno consult: He was delirious on presentation to the hospital but his delirium has cleared. Pt states he has been having problems with memory lately, he loses hours of time regularly. He does not recall most of this hospitalization or his prior hospitalization. States I do not remember being at [employer], I do not remember fighting with the reinstatement clerk. I do not remember banging my head [...] to ANDREE Servin on [address] [facility] documented in this encounter Plan of Treatment Not on file documented as of this encounter Visit Diagnoses Not on filedocumented in this encounter Additional Health Concerns Assessment Noted Time PHQ-9 Depression Total Score: 27 017 3:02 PM CDT documented as of this encounter Care Teams Scale Balancer Relationship Specialty Start Date End Date Zackery Clark MD PCP - General Family Practice 01/05/16 04/11/19 Zackery Clark MD [address] [facility] 200 [place] [address] PCP - Assigned PCP 08/17/17 01/19/19 Shi Hernandez MD [address] [place], [place] [address] PCP - General Family Practice 04/12/19 Kanwal Martinez MD [address] [address] Ophthalmology 02/05/16 Malathi Shelton MD [address] [address] Ophthalmology 02/08/16 Radha Leal MD [facility] 909 [facility] [place], [place] [address] Resident Student in organized health care education/training program 01/07/18 05/17/19 Hilary Negrete, ANDREE Nurse Coordinator Neurology 01/28/18 05/10/19 Zackery Clark MD [address] [facility] 200 [place] [address] Assigned PCP 08/17/17 10/30/19 Denilson Alfonso Chi, OD 909 [place] [address] Optometry 07/26/19 Tierra Cid APRN INCUBATOR OPERATOR [facility] [address] [place] [address] Assigned PCP 10/31/19 11/01/22 Azeem Rowan OD 909 [place] [address] Assigned Surgical Provider 09/08/20 08/04/21 documented as of this encounter
--- OUTSIDE RECORDS SUMMARY | 2024-06-16 01:47 | XMS_ITS | Encounter Summary ---
Author Organization [place] Address [address] [facility] [place] [address] Care Team Providers Care Authors Motivational Name Role Phone Zackery Clark MD Primary Care Provide r Kanwal Martinez MD Unavailable Malathi Shelton MD Unavailable [phone] Radha Leal MD Unavailable Hilary Negrete RN Unavailable Zackery Clark MD Unavailable Zackery Clark MD Unavailable Shi Hernandez MD Primary Care Provider [phone] Denilson Alfonso Chi OD Unavailable [phone] Tierra Cid APRN BALE SEWER Unavailable Azeem Rowan OD Unavailable [phone] Reason for Visit * Reason Onset Date Comments Hospital F/U 09/03/2017 Hospital F/U Dep ression, Unspecified Depression Type 2/1 Encounter Details Date Type Department Care Team (Late st Contact Info) Description 09/03/2017 Telephone [facility] [address] [place] [address] Zackery Clark MD [address] [address] Hospital F/U (Hospital F/U Depression, [...] documented as of this encounter Care Teams Authors Motivational Relationship Specialty Start Date End Date Zackery Clark MD PCP - General Family Practice 01/05/16 04/11/19 Zackery Clark MD [address] [address] PCP - Assigned PCP 08/17/17 01/19/19 Shi Hernandez MD [address] [place], [place] [address] PCP - General Family Practice 04/12/19 Kanwal Martinez MD [address] [place] [address] Ophthalmology 02/05/16 Malathi Shelton MD [address] [place] [address] [address] [place] [address] Ophthalmology 02/08/16 Radha Leal MD [facility] 909 [facility] [id number] [place], [place] [address] Resident Student in organized health care education/training program 01/07/18 05/17/19 Hilary Negrete RN Nurse Coordinator Neurology 01/28/18 05/10/19 [place] [address] [place] [id number] Assigned PCP 08/17/17 10/30/19 Denilson Alfonso Chi, OD [address] [place] [address] Optometry 07/26/19 Tierra Cid APRN BALE SEWER [facility] [address] [place] [address] Assigned PCP 10/31/19 11/01/22 Azeem Rowan OD [address] [place] [address] Assigned Surgical Provider 09/08/20 08/04/21 documented as of this encounter
--- OUTSIDE RECORDS SUMMARY | 2024-06-16 01:47 | XMS_ITS | Encounter Summary ---
Author Organization [place] Address [address] [facility] [address] Care Team Providers Care Filling Machine Operator Name Role Phone Zackery Clark MD Primary Care Provide r Kanwal Martinez MD Unavailable Malathi Shelton MD Unavailable [phone] Patti Gannon JAVA WEB APPLICATION DEVELOPER Unavailable [phone] Radha Leal MD Unavailable Hilary Negrete RN Unavailable Zackery Clark MD Unavailable Zackery Clark MD Unavailable [phone] Shi Hernandez MD Primary Care Provider [phone] Denilson Alfonso Chi OD Unavailable [phone] Tierra Cid CHIEF OPHTHALMIC TECHNICIAN COTTAGE SUPERVISOR Unavailable Azeem Rowan OD Unavailable [phone] Reason for Visit * Reason Onset Date Comments Hospital F/U 08/19/2017 Hospital F/U Mariely cidal Ideation, Intermittent Explosive Disorder 12/18 Encounter Details Date Type Department Care Team (Late st Contact Info) Description 08/19/2017 Telephone [place] [id number] [place] [address] Zackery Clark MD [address] [address] Hospital F/U (Hospital F/U Suicidal Ideation, Intermittent [...] encounter Miscellaneous Notes * Telephone Encounter - Mraiela Garcia RN - 08/19/2017 8:25 AM CDT [...] documented as of this encounter Care Teams Filling Machine Operator Relationship Specialty Start Date End Date Zackery Clrak MD PCP - General Family Practice 01/05/16 04/11/19 Zackery Clark MD [address] [address] PCP - Assigned PCP 08/17/17 01/19/19 Shi Hernandez MD [address] [place] [address] PCP - General Family Practice 04/12/19 Kanwal Martinez MD 420 [facility] 493 [place] [address] Ophthalmology 02/05/16 Malathi Shelton MD 420 [facility] 493 [place] [address] Ophthalmology 02/08/16 Patti Gannon, JAVA WEB APPLICATION DEVELOPER School Psychology Professor 08/19/17 08/31/17 Radha Leal MD [facility] 909 [facility]2[place], [place] [address] Resident Student in [facility] health care education/training program 01/07/18 05/17/19 Hilary Negrete, ANDREE Nurse Coordinator Neurology 01/28/18 05/10/19 Zackery Clark MD [address] [id number] Assigned PCP 08/17/17 10/30/19 Denilson Alfonso Chi, OD [address] [place] [address] Optometry 07/26/19 Tierra Cid APRN COTTAGE SUPERVISOR [facility] [address] [place] [address] Assigned PCP 10/31/19 11/01/22 Azeem Rowan, OD [address] [place] [address] Assigned Surgical Provider 09/08/20 08/04/21 documented as of this encounter
--- OUTSIDE RECORDS SUMMARY | 2024-06-16 01:47 | XMS_ITS | Continuity of Care Document ---
Author Organization [place] Address [address] [facility] [address] [place] [address] Phone Care Team Providers Care Notched Blade Loader Name Role Phone Oralia Garces CNP Unavailable [...] Cons New/estab Low 4 [facility], [address], [place], [id number], [place] tel:[phone] [facility] - IP No Information 2 Tomshine Oralia. [address] , [address], [place], [id number], [place]. tel:[phone] Referring Provider: Amy Whitley, [address] [place], [address]. tel:[phone] Offic/outpt E&m Estab Low-mod [facility], [address], [place], [id number], [place] tel:[phone] [facility] No Information 8 Tomshine Oralia. [address] , [address], [place], [id number], [place]. tel:[phone] Referring Provider: Amy Whitley, [address] [place], [address]. tel:[phone] Offic/outpt E&m Estab Low-mod [facility] [address], [place], [id number], tel:[phone] [facility] No Information 7200 8 Tomshine Oralia. [address] , [address], [place], [id number], [place]. tel:[phone] Referring Provider: Amy Whitley, [address] [place], [address]. tel:[phone] Offic/outpt E&m Estab Low-mod [facility], [address], [place], [place], [id number], [place] tel:[phone] [facility] No Information Sep-1 8 No Information Referring Provider: Amy Whitley, [address] [place], [address]. tel:[phone] [facility], [address], [place], [id number], [place] tel:[phone] [facility] No Information Sep-0 8 No Information Referring Provider: Amy Whitley, [address] [place], [address]. tel:[phone] [facility], [address], [place], [id number], [place] tel:[phone] [facility] No Information Sep-0 8 No Information Referring Provider: Amy Whitley, [address] [place], [address]. tel:[phone] Offic/outpt E&m Estab Low-mod [facility], [address], [place], [place], [id number], [place] tel:[phone] [facility] No Information Dez Barton. [address], [address], [place], [place], [id number], [place]. tel:[phone] Referring Provider: Amy Whitley, [address] [place], [address]. tel:[phone] [facility], [address] [facility] [address], [place], [place], [id number], [place] tel:[phone] [facility] No Information No Information Referring Provider: Amy Whitley, [address] [facility], [place], [address]. tel:[phone] Offic/outpt E&m Estab Mod-hi 2 [facility], [facility], [address] [facility] [address], [place], [place], [id number], [place] tel:[phone] [facility] No Information Dez Barton. [address] [facility], [address], [place], [id number], [place]. tel:[phone] Referring Provider: Amy Whitley, [address] [place], [address]. tel:[phone] [facility], [facility], [address] [facility], [place], [place], [id number], [place] tel:[phone] [facility] No Information Sneha HAY Mayela. [address] [facility], [address], [place], [address], [place]. tel:[phone] Referring Provider: Amy Whitley, [address] [place], [address]. tel:[phone] Offic/outpt E&m Estab Low-mod [facility], [facility], [address] [facility] 220, [place], [place], [id number], [place] tel:[phone] [facility] No Information 8 No Information Referring Provider: Amy Whitley, [address] [place], [address]. tel:[phone] Offic Cons New/estab Mod-hi 60 [facility], [address], [place], [place], [id number], tel:[phone] [facility] No Information 8 Dez Barton. [address], [address], [place], [place], [id number], [place]. tel:[phone] Referring Provider: Amy Whitley, [address] [place], [address]. tel:[phone] GILA Macedo, [address] [facility] [address], [place], [place], [id number], tel:[phone] [facility] No Information 8 No Information Referring Provider: Amy Whitley, [address] [place], [address]. tel:[phone] TAMMY Macedo, [address] [facility] [address], [place], [place], [id number], tel:[phone] [facility] No Information 8 No Information Referring Provider: Amy Whitley, [address] [place], [address]. tel:[phone] Family History Family Member Type Diagnosis Age At Onset No Information Payers Payer name Insurance type Covered democrat ID Authorzion lance(s) Medical Assistance [facility] [id number] Social History Type Description Quantity Date Captured [...]
--- OUTSIDE RECORDS SUMMARY | 2024-06-16 01:47 | XMS_ITS | Encounter Summary ---
Author Organization [place] Address [address] [facility] [place] [address] Care Team Providers Care Lung Puller Name Role Phone Kanwal Martinez MD Unavailable Malathi Shelton MD Unavailable [phone] Shi Hernandez MD Primary Care Provider [phone] Denilson Alfonso Chi OD Unavailable [phone] Tierra Cid APRN CLIENT SERVICE CONSULTANT Unavailable Azeem Rowan OD Unavailable [phone] Reason for Visit * Reason Onset Date Comments Panel Management 11/04/2019 Update ACT Encounter Details Date Type Department Care Team (Late st Contact Info) Description 11/04/[address] [address] Tierra Cid, USMAN CLIENT SERVICE CONSULTANT [facility] [address] [place], [place] [id number] Panel Management (Update ACT) Social History Tobacco [...] ELENA Mooney Chart routed to ELENA Mooney [employer] documented in this encounter Plan of Treatment Not on file documented as of this encounter Visit Diagnoses Not on filedocumented in this encounter Additional Health Concerns Assessment Noted Time PHQ-9 Depression Total Score: 3 10/26/20 19 1:37 PM MANAGER MARKET documented as of this encounter Care Teams Lung Puller Relationship Specialty Start Date End Date Shi Hernandez MD [address] [place], [place] [address] PCP - General Family Practice 04/12/19 Kanwal Martinez MD [address] [id number] Ophthalmology 02/05/16 Malathi Shelton MD [address] [id number] Ophthalmology 02/08/16 Denilson Alfonso Chi, OD 909 [place] [address] Optometry 07/26/19 Tierra Cid APRN CLIENT SERVICE CONSULTANT [facility] [address] [place] [address] Assigned PCP 10/31/19 11/01/22 Azeem Rowan, OD 9 [place] [address] Assigned Surgical Provider 09/08/20 08/04/21 documented as of this encounter
--- OUTSIDE RECORDS SUMMARY | 2024-06-16 01:47 | XMS_ITS | Encounter Summary ---
Author Organization [place] Address [address] [facility] [place] [address] Care Team Providers Care Printmaker Name Role Phone Zackery Clark MD Primary Care Provide r Kanwal Martinez MD Unavailable Malathi Shelton MD Unavailable [phone] Patti Gannon OVEN DRIER TENDER Unavailable [phone] Radha Leal MD Unavailable [phone] Hilary Negrete RN Unavailable Zackery Clark MD Unavailable Zackery Clark MD Unavailable Shi Hernandez MD Primary Care Provider [phone] Denilson Alfonso Chi OD Unavailable [phone] Tierra Cid BRAN MIXER TRAVEL COUNSELOR Unavailable Azeem Rowan OD Unavailable [phone] Reason for Visit * Reason Onset Date Comments MH/CD Inpatient 08/12/2017 Encounter Details Date Type Department Care Team ([facility] st Contact Info) Description 08/12/2017 Telephone [facility] Intake [address] [place] [address] Generic, Behavioral Intake, MH/CD Inpatient Social [...] reports he was hyper and aggressive at [facility] prior to his admission at [facility].Pt reports he was banging his [...] reports SI/HI. Pt was recently discharged from [facility] after withdrawal from opiates. [facility] but does not live with her [...] documented as of this encounter Care Teams Printmaker Relationship Specialty Start Date End Date Zackery Clark MD PCP - General Family Practice 01/05/16 04/11/19 Zackery Clark MD [address] [address] PCP - Assigned PCP 08/17/17 01/19/19 Shi Hernandez MD [address] [place], [place] [address] PCP - General Family Practice 04/12/19 Kanwal Martinez MD 420 [facility] 493 [place], [place] [address] Ophthalmology 02/05/16 Malathi Shelton MD 420 [facility] 493 [place], [place] [address] Ophthalmology 02/08/16 Patti Gannon, OVEN DRIER TENDER Nurse Discharge Planner 08/19/17 08/31/17 Radha Leal MD [facility] [address]09 [facility] [place], [place] [address] Resident Student in organized health care education/training program 01/07/18 05/17/19 Hilary Negrete, ANDREE Nurse Coordinator Neurology 01/28/18 05/10/19 Zackery Clark MD 2270 [facility] 200 [place] [address] Assigned PCP 08/17/17 10/30/19 Denilson Alfonso Chi, OD 9 [place] [address] Optometry 07/26/19 Tierra Cid APRN TRAVEL COUNSELOR [facility] [address] [place] [address] Assigned PCP 10/31/19 11/01/22 Azeem Rowan OD [address] [place] [address] Assigned Surgical Provider 09/08/20 08/04/21 documented as of this encounter
--- OUTSIDE RECORDS SUMMARY | 2024-06-16 01:47 | XMS_ITS | Clinical Summary ---
Author Organization [facility] Address [place], [place] [address] Care Team Providers Care Pickers Material Handlers Name Role Phone Amy Hernandez MD Primary [...] Nolberto Santoro MD [facility] [phone] Fax 11/29/2020 Active mirtazapine (REMERON) 15 mg [...] T Respiratory Rate 16 01/25/2022 4:00 PM DIRECTOR HOME HEALTH Oxygen Saturation 97% 01/25/2022 4:00 PM DIRECTOR HOME HEALTH Inhaled Oxygen Concentration - - Weight 84.4 [...] 65+ 07/18/2024 Medical Devices Implanted Type Area Customer Order Clerk Device Identifier Shelf Expiration Date Model / Serial / Lot Stent Uret [id number] Percuflex [employer]plus - [id number] Implanted:Qty: 1 on 01/25/2022 by Thai Cruz MD at [facility] Right: [employer]reter [facility] U[facility] 11/04/2024 [id number] / / [id number] Explanted Type Area Customer Order Clerk Device Identifier Shelf Expiration Date Model / Serial / Lot Stent Uret [id number] Percuflex Hydroplus - [id number] Implanted:Qty: 1 on 12/30/2021 by Kareem Denton MD at [facility] Explanted:Qty: 1 on 01/25/2022 by Thai Cruz MD at [facility] Right: [employer]ter [facility] Urology 09/12/2024 [id number] / / [id number] Advance Directives * Full Code (Latest Code [...] 9:27 AM 01/27/2009 6:54 PM Care Teams Pickers Material Handlers Relationship Specialty Start Date End Date Amy Hernandez MD PCP - General 01/19/09
--- OUTSIDE RECORDS SUMMARY | 2024-06-16 01:47 | XMS_ITS | Continuity of Care Document ---
Author Organization [facility] Address [address] [address] [place] [address] Phone Care Team Providers Care Alumni Secretary Name Role Phone No Information Unavailable Unavailable [...] Diagnoses Date Provider Providers Copied on Encounter [facility] [place], [address] [address], [place], [id number], [place] tel:[phone] No Information 4 No Information [facility] [place], [address] [address], [place], [id number], [place] tel:[phone] [facility] Colorectal polyp detected on colonoscopyBenig n neoplasm of ascending colonBenign neoplasm of transverse colon 9 [place], [id number], [place]. tel:[phone] Referring Provider: Amy Whitley, [address] [place], [address]. tel:[phone] Offic/outpt E&m [facility] [place], [address] [address], [place], [id number], [place] tel:[phone] [facility] GI Symptoms or Concerns (chief complaint) Constipation in maleChange in bowel habitsTenesmus (rectal)Abdomina l pain in maleRectal bleedingDietary counseling and surveillanceEsse ntial (primary) hypertension 8 [place] [facility] [address], [place], [place], [id number], [place]. tel:[phone] Referring Provider: Amy Whitley, [address], [place], [address]. tel:[phone] [facility], [address] [address], [place], [place], [id number], [place] tel:[phone] [facility] No Information No Information Family History [...]
--- OUTSIDE RECORDS SUMMARY | 2024-06-16 01:47 | XMS_ITS | Clinical Summary ---
Author Organization [place] Address [address] [facility] [place] [address] Care Team Providers Care Power Mule Operator Name Role Phone Kanwal Martinez MD Unavailable Malathi Shelton MD Unavailable [phone] Shi Hernandez MD Primary Care Provider [phone] Denilson Alfonso Chi OD Unavailable [phone] Allergies Active Allergy Reactions Criticality Noted [...] Provider review. Agree with goal. Rose Rowan, PRESSER AUTOMATIC Lumbago 04/23/2007 10/31/2009 Essential hypertension 03/25/200710/09 Overview: [...] Comments Blood Pressure 138/66 10/26/2019 1:15 PM RESEARCH HYDRAULIC ENGINEER Pulse 89 10/26/2019 1:15 PM RESEARCH HYDRAULIC ENGINEER Temperature 36.8 ??C (98.2 ??F) 10/26/2019 1:15 PM CS T Respiratory Rate 16 10/26/2019 1:15 PM RESEARCH HYDRAULIC ENGINEER Oxygen Saturation 99% 10/26/2019 1:15 PM RESEARCH HYDRAULIC ENGINEER Inhaled Oxygen Concentration - - Weight 83.5 kg (184 lb) 10/26/2019 1:15 PM RESEARCH HYDRAULIC ENGINEER Height 167.6 cm (5' 6) 04/12/2019 4:42 PM CDT Body Mass Index 29.7 04/12/2019 4:42 PM CDT Plan of Treatment Not on file Advance Directives For more information, please contact: [phone] * Full Code (Latest Code Status on [...] 2:11 AM 08/18/2017 4:20 PM Care Teams Power Mule Operator Relationship Specialty Start Date End Date Shi Hernandez MD [address] [place] [address] PCP - General Family Practice 04/12/19 Kanwal Martinez MD [address] [address] Ophthalmology 02/05/16 Malathi Shelton MD [address] [id number] Ophthalmology 02/08/16 Denilson Alfonso Chi, OD [address] [place] [address] [id number] Optometry 07/26/19
--- OUTSIDE RECORDS SUMMARY | 2024-06-16 01:48 | XMS_ITS | Clinical Summary ---
Author Organization [facility] Address [address] [place] [address] Care Team Providers Care Lead Clinical Research Coordinator Name Role Phone Amy Hernandez MD Primary [...] Nolberto Santoro MD [facility] [phone] Fax 1 each 11/29/2020 Active naloxone (NARCAN) 4 mg/actuation Nasal [place] Instill 1 spray (4 mg) into one nostril as needed. Seek emergency care immediately after use. 2 each 01/02/2021 Active ondansetron (ZOFRAN) 4 mg oral ODT 09/20/2021 Active aspirin 81 mg oral enteric coated tablet Take 1 tablet (81 mg) by mouth once daily. 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 Ifrah, et.al. JCEM 2017,102;3563-5201. PMID: [id number]. Free Testosterone Direct ([facility]) 2.5(L) 6.6 - 18.1 pg/mL 05/05/2024 2:08 PM CDT [facility] Comment: Results verified by repeat testing Blood Venipuncture / Unknown 04/27/2024 1:03 PM CDT 04/27/2024 1:03 PM CDT Narrative [facility] - 05/05/2024 2:08 PM CDT Performed at: ??01 - [address] ??[id number] Latin Dance Instructor: Robert Yepez MD, Phone: ??[phone] Performed at: ??02 - [facility] ??[id number] Latin Dance Instructor: Sonu Hector MD, Phone: ??[phone] Amy Hernandez MD [facility] [address] [place] [address] * (ABNORMAL) COMPREHENSIVE METABOLIC PANEL 14 ([facility]) (04/27/2024 1:03 PM CDT) Pathologist [facility] Glucose ([facility]) 96 70 - 99 mg/dL [...] AM CDT Performed at: ??01 - [facility] [address] ??[id number] Latin Dance Instructor: Robert Yepez MD, Phone: ??[phone] Amy Hernandez MD [facility] Performing Organization Address [facility]/ZIP Co de Phone Number [facility] [address] [place] [address] * LIPID PANEL ([facility]) (04/27/2024 1:03 PM [...] AM CDT Performed at: ??01 - [facility] [address] ??[id number] Latin Dance Instructor: Robert Yepez MD, Phone: ??[phone] Amy Hernandez MD [facility] Performing Organization Address City/[facility]/ZIP Co de Phone Number [facility] [address] [place] [address] * CBC/DIFFERENTIAL OP (04/27/2024 1:03 PM CDT) WBC OP 6.3 4.3 - 10.8 K/UL 04/27/2024 1:12 PM [address] [facility] RBC OP 5.75 4.60 - 6.20 M/UL 04/27/2024 1:12 PM CD[address] [facility] HEMOGLOBIN OP 17.2 14.0 - 18.0 gm/dL 04/27/2024 1:12 PM CD[address] [facility] HEMATOCRIT OP 49.2 40.0 - 54.0 % 04/27/2024 1:12 PM CD[address] [facility] MCV OP 86 80 - 100 fL 04/27/2024 1:12 PM CD[address] [facility] MCH OP 29.9 27.0 - 33.0 pg 04/27/2024 1:12 PM CDT [facility] MCHC OP 35.0 33.0 - 36.0 gm/dL 04/27/2024 1:12 PM CD[address] [facility] RDW OP 12.1 11.5 - 14.5 % 04/27/2024 1:12 PM CD[address] [facility] PLATELET COUNT OP 230 150 - 400 K/UL 04/27/2024 1:12 PM CDT [facility] MPV OP 9.8 6.5 - 12.0 fL 04/27/2024 1:12 PM CDT [facility] PMN % OP 61.6 % 04/27/2024 1:12 PM CD[address] [facility] LYMPHOCYTE % OP 29.5 % 1:12 PM CD[address] [facility] MONOCYTE % OP 7.3 % 04/27/2024 1:12 PM CD[address] [facility] EOSINOPHIL % OP 1.1 % 4 1:12 PM CDT [facility] BASOPHIL % OP 0.5 % 04/27/2024 1:12 PM CD[address] [facility] PMN ABSOLUTE OP 3.87 1.80 - 7.80 K/uL 04/27/2024 1:12 PM CD[address] [facility] LYMPHOCYTE ABSOLUTE OP 1.85 1.00 - 4.00 K/uL 04/27/2024 1:12 PM CD[address] [facility] MONOCYTE ABSOLUTE OP 0.46 0.00 - 1.00 K/uL 04/27/2024 1:12 PM CDT [facility] EOSINOPHIL ABSOLUTE OP 0.07 0.00 - 0.45 K/uL 04/27/2024 1:12 PM CDT [facility] BASOPHIL ABSOLUTE OP 0.03 0.00 - 0.20 K/uL 04/27/2024 1:12 PM CD[address] [facility] Blood Venipuncture / Unknown 04/27/2024 1:03 PM CDT 04/27/2024 1:03 PM CDT Amy Hernandez MD HEMATOLOGY ORDERABLE [facility] [address] [place] [address] * Colonoscopy (02/02/2018 7:14 AM CDT) 02/02/2018 7:14 AM CDT Narrative TEST - 02/02/2018 3:22 PM CDT [facility] Patient Name: Fish Sofia Procedure Date: 02/02/2018 [...] Procedure Code(s): ? --- Professional --- ? 27010, Colonoscopy, flexible; with removal of tumor(s), polyp(s), or ? other lesion(s) by snare technique Diagnosis Code(s): ? --- Professional --- ? Z12.11, Encounter for screening for malignant neoplasm of colon ? D12.2, Benign neoplasm of ascending colon ? K57.30, Diverticulosis of large intestine without perforation or abscess ? without bleeding CPT copyright 2016 [employer]. All rights reserved. The codes documented in this report are preliminary and upon head refrigerating engineer review may be revised to meet current compliance requirements. Callum AVILES MD 02/02/2018 3:21:56 PM Number of Addenda: 0 Note Initiated On: 02/02/2018 7:14 AM ? [address] ? [place] [address] Procedure Note Callum Aviles MD - 02/02/2018 [facility] Patient Name: Fish Sofia Procedure Date: 02/02/2018 [...] for surveillance. Procedure Code(s): --- Professional --- 65100, Colonoscopy, flexible; with removal of tumor(s), polyp(s), or other lesion(s) by snare technique Diagnosis Code(s): --- Professional --- Z12.11, Encounter for screening for malignant neoplasm of colon D12.2, Benign neoplasm of ascending colon K57.30, Diverticulosis of large intestine without perforation orabscess without bleeding CPT copyright 2016 [employer]. All rights reserved. The codes documented in this report are preliminary and upon head refrigerating engineer reviewmay be revised to meet current compliance requirements. Callum AVILES MD 02/02/2018 3:21:56 PM Number of Addenda: 0 Note Initiated On: 02/02/2018 7:14 AM [address] [place] [address] Callum Aviles MD PROCEDURE ORDERABL E Performing Organization Address [facility] de Phone Number TEST * HEP C ANTIBODY (03/11/2016 1:44 PM CDT) Hepatitis C Antibody Non-Reacti ve Non-Reacti ve 03/11/2016 5:17 PM CDT [facility] Blood Venipuncture / Unknown 03/11/2016 1:44 PM CDT 03/11/2016 1:44 PM CDT Amy Hernandez MD IMMUNOLOGY ORDERABLE Performing Organization Address [facility] de Phone Number [facility] [address] [place] [address] from Last 3 Months or Most Recently Relevant to Health Maintenance Advance Directives For more information, please contact: [phone] * Full Code (Latest Code Status on File) Date Activated Date Inactivated Comments 06/21/2012 8:48 PM 06/24/2012 8:12 PM Question Answer Comments How was code status determined? Physician determ [facility] Care Teams Lead Clinical Research Coordinator Relationship Specialty Start Date End Date Amy Hernandez MD [address] [place] [address] PCP - General 05/30/08 Freddy Rosa MD [address] [place] [address] PCP - Touch Up [place] Cardiovascular Disease 05/04/20
--- OUTSIDE RECORDS SUMMARY | 2024-06-16 01:48 | XMS_ITS | Encounter Summary ---
Author Organization [place] Address [address] [facility] [place] [address] Care Team Providers Care Varnishing Unit Tool Setter Name Role Phone Alejandro Cochran PA-C Primary Care Provider [phone] Zackery Clark MD Primary Care Provide r Kanwal Martinez MD Unavailable Malathi Shelton MD Unavailable [phone] Patti Gannon SOFTWARE DESIGN ENGINEER Unavailable [phone] Radha Leal MD Unavailable Hilary Negrete RN Unavailable [phone] Zackery Clark MD Unavailable Zackery Clark MD Unavailable Shi Hernandez MD Primary Care Provider + [phone] Denilson Alfonso Chi OD Unavailable [phone] Tierra Cid KENNEL MANAGER FINANCIAL SYSTEMS ADMINISTRATOR Unavailable Azeem Rowan OD Unavailable [phone] Reason for Visit * Reason Onset Date Comments Outreach 08/14/2015 [facility] ATT 1 Encounter Details Date Type Department Care Team (Late st Contact Info) Description 08/14/[address] [address] Alejandro Cochran PA-C XXX NO INFO FOUND 12/12/2022 XXX [place] [address] Outreach (PHS ATT 1) Social History Tobacco [...] Attempt 1 Message on voicemail Comments: Outreach Certified Dialysis Technician Heather Anthony documented in this encounter Plan of Treatment Not on file documented as of this encounter Visit Diagnoses Not on filedocumented in this encounter Care Teams Varnishing Unit Tool Setter Relationship Specialty Start Date End Date Alejandro Cochran PA-C PCP - General 10/09/09 01/04/16 Zackery Clakr MD PCP - General Family Practice 01/05/16 04/11/19 Zackery Clark MD [address] [address] PCP - Assigned PCP 08/17/17 01/19/19 Shi Hernandez MD [address] [place] [address] PCP - General Family Practice 04/12/19 Kanwal Martinez MD 420 [facility] [address] [place] [address] Ophthalmology 02/05/16 Malathi Shelton MD 420 [facility] [address] [place] [address] Ophthalmology 02/08/16 Patti Gannon, SOFTWARE DESIGN ENGINEER Boiler Reliner 08/19/17 08/31/17 Radha Leal MD [facility] [address] [facility] [place], [place] [address] Resident Student in organized health care education/training program 01/07/18 05/17/19 Hilary Negrete, ANDREE Nurse Coordinator Neurology 01/28/18 05/10/19 Zackery Clark MD [address] [id number] Assigned PCP 08/17/17 10/30/19 Denilson Alfonso Chi, OD [address] [place] [address] Optometry 07/26/19 Tierra Cid APRN FINANCIAL SYSTEMS ADMINISTRATOR [facility] [address] [place], [place] [id number] Assigned PCP 10/31/19 11/01/22 Azeem Rowan, OD [address] [place] [id number] Assigned Surgical Provider 09/08/20 08/04/21 documented as of this encounter
--- OUTSIDE RECORDS SUMMARY | 2024-06-16 01:48 | XMS_ITS | Referral Summary ---
Author Organization [facility] Address [address] [place] [address] Care Team Providers Care Senior Telecommunications Specialist Name Role Phone Amy Hernandez MD Primary Care Provider [phone] Freddy Rosa MD Unavailable Encounters Date Type Department Care Team Description 04/27/2024 Travel 04/27/2024 12:30 PM CDT Office Visit [facility] [address] [place] [address] Amy Hernandez MD Encounter for Medicare annual [...] Nolberto Santoro MD [facility] [phone] Fax 1 each 11/29/2020 Active naloxone (NARCAN) 4 mg/actuation Nasal [place] Instill 1 spray (4 mg) into one [...] mg sublingual tabletIndications: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 Ifrah, et.al. JCEM 2017,102;3974-1508. PMID: [id number]. Free Testosterone Direct ([facility]) 2.5(L) 6.6 - 18.1 pg/mL 05/05/2024 2:08 PM CDT [facility] Comment: Results verified by repeat testing Blood Venipuncture / Unknown 04/27/2024 1:03 PM CDT 04/27/2024 1:03 PM CDT Narrative [facility] - 05/05/2024 2:08 PM CDT Performed at: ??01 - [address] ??[id number] Tour Coordinator: Robert Yepez MD, Phone: ??[phone] Performed at: ??02 - [address] ??[id number] Tour Coordinator: Sonu Hector MD, Phone: ??[phone] Amy Hernandez MD [facility] ORDER[facility]LES [facility] [address] [place] [address] * (ABNORMAL) COMPREHENSIVE METABOLIC PANEL [...] 8:12 AM CDT Performed at: ??01 - [address] ??[id number] Tour Coordinator: Robert Yepez MD, Phone: ??[phone] Amy Hernandez MD [facility] [address] [place] [address] * LIPID PANEL ([facility]) (04/27/2024 1:03 PM [...] 8:12 AM CDT Performed at: ??01 - [facility] [address] [place], [place] ??[id number] Tour Coordinator: Robert Yepez MD, Phone: ??[phone] Amy Hernandez MD [facility] [address] [facility], [place] [address] * CBC/DIFFERENTIAL OP (04/27/2024 1:03 PM CDT) WBC OP 6.3 4.3 - 10.8 K/UL 04/27/2024 1:12 PM CDT [facility] RBC OP 5.75 4.60 - 6.20 M/UL 04/27/2024 1:12 PM CDT [facility] HEMOGLOBIN OP 17.2 14.0 - 18.0 gm/dL 04/27/2024 1:12 PM CDT [facility] HEMATOCRIT OP 49.2 40.0 - 54.0 % 04/27/2024 1:12 PM CDT [facility] MCV OP 86 80 - 100 fL 04/27/2024 1:12 PM CDT [facility] MCH OP 29.9 27.0 - 33.0 pg 04/27/2024 1:12 PM CDT [facility] MCHC OP 35.0 33.0 - 36.0 gm/dL 04/27/2024 1:12 PM CDT [facility] RDW OP 12.1 11.5 - 14.5 % 04/27/2024 1:12 PM CDT [facility] PLATELET COUNT OP 230 150 - 400 K/UL 04/27/2024 1:12 PM CDT [facility] MPV OP 9.8 6.5 - 12.0 fL 04/27/2024 1:12 PM CDT [facility] PMN % OP 61.6 % 04/27/2024 1:12 PM CDT [facility] LYMPHOCYTE % OP 29.5 % 1:12 PM CDT [facility] MONOCYTE % OP 7.3 % 04/27/2024 1:12 PM CDT [facility] EOSINOPHIL % OP 1.1 % 1:12 PM CDT [facility] BASOPHIL % OP 0.5 % 04/27/2024 1:12 PM CDT [facility] PMN ABSOLUTE OP 3.87 1.80 - 7.80 K/uL 04/27/2024 1:12 PM CDT [facility] LYMPHOCYTE ABSOLUTE OP 1.85 1.00 - 4.00 K/uL 04/27/2024 1:12 PM CDT [facility] MONOCYTE ABSOLUTE OP 0.46 0.00 - 1.00 K/uL 04/27/2024 1:12 PM CDT [facility] EOSINOPHIL ABSOLUTE OP 0.07 0.00 - 0.45 K/uL 04/27/2024 1:12 PM CDT [facility] BASOPHIL ABSOLUTE OP 0.03 0.00 - 0.20 K/uL 04/27/2024 1:12 PM CDT [facility] Blood Venipuncture / Unknown 04/27/2024 1:03 PM CDT 04/27/2024 1:03 PM CDT Amy Hernandez MD HEMATOLOGY ORDERABLE [facility] [address] [place] [address] * Colonoscopy (02/02/2018 7:14 AM CDT) 02/02/2018 7:14 AM CDT Narrative TEST - 02/02/2018 3:22 PM CDT [facility] Patient Name: Fish Sofia Procedure Date: 02/02/2018 [...] Procedure Code(s): ? --- Professional --- ? 51899, Colonoscopy, flexible; with removal of tumor(s), polyp(s), or ? other lesion(s) by snare technique Diagnosis Code(s): ? --- Professional --- ? Z12.11, Encounter for screening for malignant neoplasm of colon ? D12.2, Benign neoplasm of ascending colon ? K57.30, Diverticulosis of large intestine without perforation or abscess ? without bleeding CPT copyright 2016 [employer]. All rights reserved. The codes documented in this report are preliminary and upon outpatient coder review may be revised to meet current compliance requirements. Callum AVILES MD 02/02/2018 3:21:56 PM Number of Addenda: 0 Note Initiated On: 02/02/2018 7:14 AM ? [address] ? [place] [address] Procedure Note Callum Aviles MD - 02/02/2018 [facility] Patient Name: Fish Sofia Procedure Date: 02/02/2018 [...] for surveillance. Procedure Code(s): --- Professional --- 90367, Colonoscopy, flexible; with removal of tumor(s), polyp(s), or other lesion(s) by snare technique Diagnosis Code(s): --- Professional --- Z12.11, Encounter for screening for malignant neoplasm of colon D12.2, Benign neoplasm of ascending colon K57.30, Diverticulosis of large intestine without perforation orabscess without bleeding CPT copyright 2016 [employer]. All rights reserved. The codes documented in this report are preliminary and upon outpatient coder reviewmay be revised to meet current compliance requirements. Callum AVILES MD 02/02/2018 3:21:56 PM Number of Addenda: 0 Note Initiated On: 02/02/2018 7:14 AM [address] [place] [address] Callum Aviles MD PROCEDURE ORDERABL E Performing Organization Address City/[facility] de Phone Number TEST * HEP C ANTIBODY (03/11/2016 1:44 PM CDT) Hepatitis C Antibody Non-Reacti ve Non-Reacti ve 03/11/2016 5:17 PM CDT [facility] Blood Venipuncture / Unknown 03/11/2016 1:44 PM CDT 03/11/2016 1:44 PM CDT Amy Hernandez MD IMMUNOLOGY ORDERABLE Performing Organization Address City/[facility] Co de Phone Number [facility] [address] [place] [address] from Last 3 Months or Most Recently Relevant to Health Maintenance Administered Medications Advance Directives For more information, please contact: [phone] * Full Code (Latest Code Status on File) Date Activated Date Inactivated Comments 06/21/2012 8:48 PM 06/24/2012 8:12 PM Question Answer Comments How was code status determined? Physician determ ined Care Teams Senior Telecommunications Specialist Relationship Specialty Start Date End Date Amy Hernandez MD [address] [place] [address] PCP - General 05/30/08 Freddy Rosa MD [address] [place] [address] PCP - Tailor Helper Cardiovascular Disease 05/04/20
--- OUTSIDE RECORDS SUMMARY | 2024-06-16 01:48 | XMS_ITS | Encounter Summary ---
Author Organization [place] Address [address] [place] [address] Care Team Providers Care Assistant Plant Control Operator Name Role Phone Alejandro Cochran PA-C Primary Care Provider [phone] None Primary Care Provider Unavailabl e Zackery Clark MD Primary Care Provide r Kanwal Martinez MD Unavailable Malathi Shelton MD Unavailable [phone] Patti Gannon WASHERY ENGINEER Unavailable [phone] Radha Leal MD Unavailable [phone] Hilary Negrete RN Unavailable [phone] Zackery Clark MD Unavailable Zackery Clark MD Unavailable Shi Hernandez MD Primary Care Provider + [phone] Denilson Alfonso Chi OD Unavailable [phone] Tierra Cid FINANCIAL COORDINATOR DITCH TENDER Unavailable Azeem Rowan OD Unavailable [phone] Reason for Visit * Reason Onset Date Comments Medication Question 08/30/2009 Encounter Details Date Type Department Care Team (Late st Contact Info) Description 08/30/[address] [address] Nolberto Lundberg MD [facility] [address] [facility] [place] [address] Medication Question Social History Tobacco Use Types [...] Percocet early. 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 He states that he [...] with BRAT diet. Will forward to Dr. Lundberg to see if pt can get a refill of Percocet early. Cell phone [phone] * Telephone Encounter - Shiloh Montemayor - 09/01/2009 8:20 AM CDT Sent to Triage. * Telephone Encounter - Shiloh Montemayor - 09/01/2009 8:10 AM CDTStaff Message copied by SHILOH MONTEMAYOR on FriSep 01, 2009 8:10 AM ------ Message from: R[place]PER Created: FriAug 31, 2009 3:55 PM Regarding: MD return call use # below [phone] * Telephone Encounter - Mariel Meyer - 08/31/2009 4:55 PM CDT Tried calling patient several times, line constantly busy. Mraiel Meyer ma * Telephone Encounter - Mariel Meyer - 08/31/2009 4:54 PM CDTStaff Message copied by MARIEL MEYER on FriAug 31, 2009 4:54 PM ------ Message from: R[place]PER Created: FriAug 31, 2009 3:55 PM Regarding: MD return call use # below [phone] * Telephone Encounter - Mariel Meyer - [...] home Best time to call back: TODAY [phone] (home), (work) Alternate phone number: [phone] Dana Sierra documented in this encounter Plan of Treatment Not on file documented as of this encounter Visit Diagnoses Not on filedocumented in this encounter Care Teams Assistant Plant Control Operator Relationship Specialty Start Date End Date Alejandro Cochran, MARBELLAC PCP - General 10/09/09 01/04/16 None PCP - General 06/20/09 10/08/09 Zackery Clark MD PCP - General Family Practice 01/05/16 04/11/19 Zackery Clark MD [address] [place] [address] PCP - Assigned PCP 08/17/17 01/19/19 Shi Hernandez MD [address] [place] [address] PCP - General Family Practice 04/12/19 Kanwal Martinez MD [address] [id number] Ophthalmology 02/05/16 Malathi Shelton MD [address] [address] Ophthalmology 02/08/16 Patti Gannon, WASHERY ENGINEER Armor Officer 08/19/17 08/31/17 Radha Leal MD [facility] [address] [facility] [place], [place] [address] Resident Student in organized health care education/training program 01/07/18 05/17/19 Hilary Negrete, ANDREE Nurse Coordinator Neurology 01/28/18 05/10/19 Zackery Clark MD [address] [address] Assigned PCP 08/17/17 10/30/19 Denilson Alfonso Chi, OD [address] [place] [address] Optometry 07/26/19 Tierra Cid APRN DITCH TENDER [facility] [address] [place] [address] Assigned PCP 10/31/19 11/01/22 Azeem Rowan, OD [address] [place] [address] [place] [address] Assigned Surgical Provider 09/08/20 08/04/21 documented as of this encounter
--- OUTSIDE RECORDS SUMMARY | 2024-06-16 01:48 | XMS_ITS | Encounter Summary ---
Author Organization [facility] Address [address] [place] [address] Care Team Providers Care Arch Support Maker Name Role Phone Amy Hernandez MD Primary Care Provider Freddy Rosa MD Unavailable Reason for Referral * Consultation (Routine) - Authorized Specialty Diagnoses / Procedures Referred By Contac t Referred To Contact Gastroenterology Diagnoses Screening for colon cancer Amy Hernandez MD [address] [place] [address] [facility] [address] [facility] [place] [address] Referral ID Status Reason Start Date Expiration Date Visits Requested Visits Authorized [id number] Authorized Specialty Services Required 04/27/2024 1 1 Comments [facility] Digestive [facility] will be contacting you to schedule your appointment. If you have immediate needs or questions regarding this appointment, please call [facility] at [phone]. Note: You may be scheduled at another location. Reason for Visit * Reason Comments Medication management Medicare wellness Encounter Details Date Type Department Care Team (Late st Contact Info) Description 04/27/2024 12:30 PM CDT Office Visit [facility]. Anthony [address] [facility] [place], [place] [address] Amy Hernandez MD [address] [place] [address] Encounter for Medicare annual wellness exam (Primary [...] balance or dizziness, you should see an licensed social worker or visit a hearing and balance center. Your vision should be checked every year. The Senior Link Age Line is brought to you by the [place] [employer]. A free [facility]or[facility]a [facility]ix hospital[facility] information and assistance service- the free [...] - General RosaFreddy MD as PCP - County Administrator (Cardiovascular Disease) Past Medical history, Surgical History, Family History, Social History and Allergies were reviewed in [facility] and updated today as needed. Current Outpatient Medications: Medication Sig acyclovir (ZOVIRAX) 400 mg oral tablet Take 1 tab p.o. twice daily albuterol HFA (PROVENTIL;VENTOLIN HFA) 90 mcg/actuation Inhl inhaler Inhale 2 puffs every 4 (four) hours as needed. aspirin 81 mg oral enteric coated tablet Take 1 tablet (81 mg) by mouth once daily. Blood Pressure Monitor Kit by [facility].(Non-Drug; Combo Route) route [...] Failed back surgery syndrome Nolberto Santoro MD [facility] [phone] Fax naloxone (NARCAN) 4 mg/actuation Nasal [place] Instill 1 spray (4 mg) into one [...] correct. Information on health care directives from [place] [employer] was provided. Additionally, he has [...] once daily. Blood Pressure Monitor Kit by [facility].(Non-Drug; Combo Route) route [...] mcg) by mouth once daily. 90 capsule3 [facility] Lumbar brace DX: Failed back surgery syndrome Nolberto Santoro MD [facility] [phone] Fax 1 each 0 naloxone (NARCAN) 4 mg/actuation Nasal [place] Instill 1 spray (4 mg) into one [...] Screening for colon cancer - REFERRAL COLONOSCOPY: [facility] Dyslipidemia - LIPID PANEL [...] check his testosterone levels on his supplement [id number]. He is no longer on injections. I did change the wording on his Percocet to say 6 tabs per day so the 180 tabs should be refillableevery 30 days. Prescription sent. HEEL NAIL RASPER reviewed and no concerns noted. We will [...] PANEL 14 ([facility]) (04/27/2024 1:03 PM CDT) [facility] Glucose ([facility]) 96 70 - 99 mg/dL [...] 1:03 PM CDT 04/27/2024 1:03 PM CDT [facility] - 04/28/2024 8:12 AM CDT Performed at: ??01 - [facility] [address] ??[id number] Bag Builder: Robert Yepez MD, Phone: ??[phone] Amy Hernandez MD [facility] ORDERABLES Performing Organization Address [facility]/ZIP Co de Phone Number [facility] [address] [place] [address] * LIPID PANEL ([facility]) (04/27/2024 [...] 8:12 AM CDT Performed at: ??01 - [facility] ??[id number] Bag Builder: Robert Yepez MD, Phone: ??[phone] Amy Hernandez MD [facility] ORDER[facility]LES Performing Organization Address [facility]/ZIP Co de Phone Number [facility] [address] [place] [address] * (ABNORMAL) TESTOSTERONE, FREE & TOTAL ([facility]) (04/27/2024 1:03 PM CDT) Testosterone ([facility]) 614 264 - 916 ng/dL 05/05/2024 2:08 PM CDT [facility] Comment: Adult male reference interval is based on a population of healthy nonobese males (BMI <30) between 19 and 39 years old. albino Rg.al. JCEM 2017,102;0843-0712. PMID: [id number]. Free Testosterone Direct ([facility]) 2.5(L) 6.6 - 18.1 pg/mL 05/05/2024 2:08 PM CDT [facility] Comment: Results verified by repeat testing Blood Venipuncture / Unknown 04/27/2024 1:03 PM CDT 04/27/2024 1:03 PM CDT Narrative [facility] [place] - 05/05/2024 2:08 PM CDT Performed at: ??01 - [facility] [address] ??[id number] Bag Builder: Robert Yepez MD, Phone: ??[phone] Performed at: ??02 - [facility] [address] ??[id number] Bag Builder: Sonu Hector MD, Phone: ??[phone] Amy Hernandez MD [facility] ORDERABLES [facility] [address] [place] [address] * CBC/DIFFERENTIAL OP (04/27/2024 1:03 PM CDT) WBC OP 6.3 4.3 - 10.8 K/UL 04/27/2024 1:12 PM CDT [facility] RBC OP 5.75 4.60 - 6.20 M/UL 04/27/2024 1:12 PM CDT [facility] HEMOGLOBIN OP 17.2 14.0 - 18.0 gm/dL 04/27/2024 1:12 PM CDT [facility] HEMATOCRIT OP 49.2 40.0 - 54.0 % 04/27/2024 1:12 PM CDT [facility] MCV OP 86 80 - 100 fL 04/27/2024 1:12 PM CDT [facility] MCH OP 29.9 27.0 - 33.0 pg 04/27/2024 1:12 PM CDT [facility] MCHC OP 35.0 33.0 - 36.0 gm/dL 04/27/2024 1:12 PM CDT [facility] RDW OP 12.1 11.5 - 14.5 % 04/27/2024 1:12 PM CDT [facility] PLATELET COUNT OP 230 150 - 400 K/UL 04/27/2024 1:12 PM CDT [facility] MPV OP 9.8 6.5 - 12.0 fL 04/27/2024 1:12 PM CDT [facility] PMN % OP 61.6 % 04/27/2024 1:12 PM CDT [facility] LYMPHOCYTE % OP 29.5 % 1:12 PM CDT [facility] MONOCYTE % OP 7.3 % 04/27/2024 1:12 PM CDT [facility] EOSINOPHIL % OP 1.1 % 1:12 PM CDT [facility] BASOPHIL % OP 0.5 % 04/27/2024 1:12 PM CDT [facility] PMN ABSOLUTE OP 3.87 1.80 - 7.80 K/uL 04/27/2024 1:12 PM CDT [facility] LYMPHOCYTE ABSOLUTE OP 1.85 1.00 - 4.00 K/uL 04/27/2024 1:12 PM CDT [facility] MONOCYTE ABSOLUTE OP 0.46 0.00 - 1.00 K/uL 04/27/2024 1:12 PM CDT [facility] EOSINOPHIL ABSOLUTE OP 0.07 0.00 - 0.45 K/uL 04/27/2024 1:12 PM CDT [facility] BASOPHIL ABSOLUTE OP 0.03 0.00 - 0.20 K/uL 04/27/2024 1:12 PM CDT [facility] Blood Venipuncture / Unknown 04/27/2024 1:03 PM CDT 04/27/2024 1:03 PM CDT Amy Hernandez MD HEMATOLOGY ORDERABLE [facility] [address] [place] [id number] documented in this encounter Visit Diagnoses Diagnosis [...] unspecified documented in this encounter Care Teams Arch Support Maker Relationship Specialty Start Date End Date Amy Hernandez MD [address] [place] [address] PCP - General 05/30/08 Freddy Rosa MD [address] [place] [address] PCP - County Administrator Cardiovascular Disease 05/04/20 documented as of this encounter
--- OUTSIDE RECORDS SUMMARY | 2024-06-16 01:48 | XMS_ITS | Encounter Summary ---
Author Organization [facility] Address [address] [facility] [place] [address] Care Team Providers Care Pharmacy Operations Coordinator Name Role Phone Alejandro Cochran PA-C Primary Care Provider [phone] Zackery Clark MD Primary Care Provide r Kanwal Martinez MD Unavailable Malathi Shelton MD Unavailable [phone] Patti Gannon IRON PLASTIC BULLET MAKER Unavailable [phone] Radha Leal MD Unavailable Hilary Negrete RN Unavailable [phone] Zackery Clark MD Unavailable Zackery Clark MD Unavailable Shi Hernandez MD Primary Care Provider Denilson Alfonso Chi OD Unavailable [phone] Tierra Cid RESIN COATER ARCHITECTURAL TECHNOLOGIST Unavailable Azeem Rowan OD Unavailable [phone] Reason for Visit * Reason Onset Date Comments Nurse Advice Line 04/09/2012 Encounter Details Date Type Department Care Team (Late st Contact Info) Description 04/09/2012 Telephone [facility] DEPT FOR [facility]W Alejandro Cochran PA-C XXX NO INFO FOUND 12/12/2022 [place] [address] Nurse Advice Line Social History Tobacco Use [...] on filedocumented in this encounter Care Teams Pharmacy Operations Coordinator Relationship Specialty Start Date End Date Alejandor Cochran, MARBELLAC PCP - General 10/09/09 01/04/16 Zackery Clark MD PCP - General Family Practice 01/05/16 04/11/19 Zackery Clark MD [address] [address] PCP - Assigned PCP 08/17/17 01/19/19 Shi Hernandez MD [address] [place], [place] [address] PCP - General Family Practice 04/12/19 Kanwal Martinez MD [address] [address] Ophthalmology 02/05/16 Malathi Shelton MD [address] [facility] [address] [place], [place] [address] Ophthalmology 02/08/16 Patti Gannon, IRON PLASTIC BULLET MAKER Housing Inspector 08/19/17 08/31/17 Radha Leal MD [facility] [address] [facility] [id number] [place] [address] Resident Student in organized health care education/training program 01/07/18 05/17/19 Hilary Negrete, ANDREE Nurse Coordinator Neurology 01/28/18 05/10/19 Zackery Clark MD [address] [id number] Assigned PCP 08/17/17 10/30/19 Denilson Alfonso Chi, OD [address] [place] [address] Optometry 07/26/19 Tierra Cid APRN ARCHITECTURAL TECHNOLOGIST [facility] [address] [place] [address] Assigned PCP 10/31/19 11/01/22 Azeem Rowan OD [address] [place] [id number] Assigned Surgical Provider 09/08/20 08/04/21 documented as of this encounter
--- OUTSIDE RECORDS SUMMARY | 2024-06-16 01:48 | XMS_ITS | Encounter Summary ---
Author Organization [facility] Address [address] [place] [address] Care Team Providers Care Board Certified Arts Therapist Name Role Phone Amy Hernandez MD Primary Care Provider [phone] Freddy Rosa MD Unavailable Encounter Details Date [...] on filedocumented in this encounter Care Teams Board Certified Arts Therapist Relationship Specialty Start Date End Date Amy Hernandez MD [address] [place] [id number] PCP - General 05/30/08 Freddy Rosa MD [address] [place] [id number] PCP - Vegetable Tester Cardiovascular Disease 05/04/20 documented as of this encounter
== END 2024-06-13 22:05 | disposition home or self-care (01) ==
LOC: AMB 06-16 01:45
PROVIDERS: Visit Provider Family Medicine
DX: R07.89 Other chest pain (principal)
CPT/HCPCS: A0425; A0427

== ENCOUNTER 2024-06-13 22:31 | Emergency (ER) | payer MEDICARE, SELFPAY ==
[2024-06-13 22:37] VITALS: BP 137/93; PULSE 110; RESP 18; TEMP 36.8; O2SAT 93; BMI 22.3
--- NOTE | 2024-06-13 22:52 | CRLHL7_ITS ---
For Patients: As a result of the Century Cures Act, medical imaging exams and procedure reports are released immediately into your electronic medical record. You may view this report before your referring provider. If you have questions, please contact your health care provider. Indication: Chest pain Technique: Two views of the chest Comparison: None Findings/Impression: 1. Allowing for low lung volumes, no acute cardiopulmonary process is appreciated. 2. Question scattered nodular opacities versus overlapping bronchovascular structures. Nonemergent outpatient chest CT recommended for further evaluation. Dictated by Carlos Daily MD @ 06/14/2024 1:13:57 AM (Electronically Signed)
--- NOTE | 2024-06-13 22:55 | ED_ITS ---
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 Oxygen Delivery Method Room Air 06/13/24 22:37 Temperature 98.3 F 06/13/24 22:37 Pulse Rate 100 06/14/24 01:10 Respiratory Rate 24 06/14/24 01:10 Blood Pressure 130/90 H 06/14/24 01:10 Pulse Oximetry 96 06/14/24 01:10 Oxygen Delivery Method Room Air 06/14/24 01:10 Oxygen Flow Rate 2 06/14/24 00:07 <Justin Batista MD - Last Filed: 06/14/24 09:53> Initial Vital Signs Temperature 98.3 F 06/13/24 22:37 Temperature Source Temporal Artery Scan 06/13/24 22:37 Pulse Rate 110 H 06/13/24 22:37 Pulse Rhythm Regular 06/13/24 22:37 Respiratory Rate 18 06/13/24 22:37 Blood Pressure 137/93 H 06/13/24 22:37 Blood Pressure Mean 107 H 06/13/24 22:37 Blood Pressure Position Semi-Fowlers 06/13/24 22:37 Pulse Oximetry 93 06/13/24 22:37 Oxygen Delivery Method Room Air 06/13/24 22:37 Vital Signs Temperature 98.3 F 06/13/24 22:37 Pulse Rate 110 H 06/13/24 22:37 Respiratory Rate 18 06/13/24 22:37 Blood Pressure 137/93 H 06/13/24 22:37 Pulse Oximetry 93 06/13/24 22:37 Oxygen Delivery Method Room Air 06/13/24 22:37 Temperature 98.3 F 06/13/24 22:37 Pulse Rate 100 06/14/24 01:10 Respiratory Rate 24 06/14/24 01:10 Blood Pressure 130/90 H 06/14/24 01:10 Pulse Oximetry 96 06/14/24 01:10 Oxygen Delivery Method Room Air 06/14/24 01:10 Oxygen Flow Rate 2 06/14/24 00:07 <Ryan Whyte MD - Last Filed: 06/14/24 02:52> Medications Administered Medications: Discontinued Medications Generic Name Dose Route Start Last Admin Trade Name Freq PRN Reason Stop Dose Admin Albuterol 2.5 mg 06/13/24 22:52 06/13/24 23:07 Albuterol Sulfate 2.5 Mg/3 Ml Vial.[facility] 06/13/24 22:53 2.5 mg ONCE ONE Administration Hydromorphone HCl 1 mg 06/14/24 01:10 06/14/24 01:15 Hydromorphone 0.5 Mg/0.5 Ml Inj IVP 06/14/24 01:11 1 mg ONCE ONE Administration Sodium Chloride 1,000 mls @ 1,000 mls/hr 06/13/24 23:00 06/14/24 02:48 0.9 % Sodium Chloride 1000 Ml IV 06/13/24 23:59 Infused .Q1H ALEX Infusion Morphine Sulfate 4 mg 06/13/24 22:52 06/13/24 23:07 Morphine 4 Mg/Ml Inj IVP 06/13/24 22:53 4 mg ONCE ONE Administration Morphine Sulfate 4 mg 06/13/24 23:31 06/13/24 23:36 Morphine 4 Mg/Ml Inj IVP 06/13/24 23:32 4 mg ONCE ONE Administration Nitroglycerin 0.4 mg 06/13/24 23:31 06/13/24 23:36 Nitroglycerin 0.4 Mg Tab.Subl SUBLINGUAL 06/13/24 23:32 0.4 mg ONCE ONE Administration <Justin Batista MD - Last Filed: 06/14/24 09:53> Discontinued Medications Generic Name Dose Route Start Last Admin Trade Name Freq PRN Reason Stop Dose Admin Albuterol 2.5 mg 06/13/24 22:52 06/13/24 23:07 Albuterol Sulfate 2.5 Mg/3 Ml Vial.[facility] 06/13/24 22:53 2.5 mg ONCE ONE Administration Hydromorphone HCl 1 mg 06/14/24 01:10 06/14/24 01:15 Hydromorphone 0.5 Mg/0.5 Ml Inj IVP 06/14/24 01:11 1 mg ONCE ONE Administration Sodium Chloride 1,000 mls @ 1,000 mls/hr 06/13/24 23:00 06/14/24 02:48 0.9 % Sodium Chloride 1000 Ml IV 06/13/24 23:59 Infused .Q1H ALEX Infusion Morphine Sulfate 4 mg 06/13/24 22:52 06/13/24 23:07 Morphine 4 Mg/Ml Inj IVP 06/13/24 22:53 4 mg ONCE ONE Administration Morphine Sulfate 4 mg 06/13/24 23:31 06/13/24 23:36 Morphine 4 Mg/Ml Inj IVP 06/13/24 23:32 4 mg ONCE ONE Administration Nitroglycerin 0.4 mg 06/13/24 23:31 06/13/24 23:36 Nitroglycerin 0.4 Mg Tab.Subl SUBLINGUAL 06/13/24 23:32 0.4 mg ONCE ONE Administration <Ryan Whyte MD - Last Filed: 06/14/24 02:52> MDM - Chest Pain MDM Narrative Medical decision making narrative: During the evaluation of this patient I considered multiple differential diagnosis is. The life-threatening differential diagnosis include coronary disease/[place], pulmonary embolism, pneumothorax, pneumonia, and aortic dissection. Other differential diagnosis included but were not limited to pericarditis, myocarditis, chest wall pain, GERD, esophageal rupture, rib fracture contusion, pleurisy, as well as other etiologies. Initial EKG shows maybe some hyperacute T-waves in V1 and V2. With just a hair elevation in comparison to old EKGs but there is no reciprocal changes I can see. He ventricular rate is 107, QRS QT and QTC are normal Initial troponin 0.01 <Justin Batista MD - Last Filed: 06/14/24 09:53> Lab Data Attestation: I reviewed the patient's lab results. <Justin Batista MD - Last Filed: 06/14/24 09:53> Labs: Lab Results 06/13/24 06/13/24 06/13/24 Range/Units 22:38 23:00 23:08 WBC 6.77 (4.50-11.00) K/uL RBC 4.65 (4.30-5.90) m/uL Hgb 13.6 (13.5-17.5) gm/dL Hct 40.2 (37.0-53.0) % MCV 87 (80-100) fL MCH 29 (26-34) pg MCHC 34 (32-36) gm/dL RDW Coeff of Ron 11.7 (11.5-15.5) % Plt Count 187 (140-440) K/uL Neut % (Auto) 62.2 (42.0-72.0) % Lymph % (Auto) 26.4 (20-44) % Garvin % (Auto) 9.5 (0.0-11.0) % Eos % (Auto) 1.2 (0.0-7.0) % Baso % (Auto) 0.3 (0.0-3.0) % Neut # (Auto) 4.21 (1.7-7.0) K/uL Lymph # (Auto) 1.79 (0.90-2.90) K/uL Garvin # (Auto) 0.60 (0.00-0.90) K/UL Eos # (Auto) 0.08 (0.00-0.50) K/uL Baso # (Auto) 0.02 (0.00-0.30) K/uL Abs Immat Gran (auto) 0.03 (0.00-0.30) K/uL Imm/Tot Granulo (auto) 0.4 % INR 1.11 H (0.91-1.10) APTT 30 (23-33) Seconds D-Dimer Quant (PE/DVT) 0.21 (0.00-0.50) ug/ml Sodium 138 (135-149) mmol/L Potassium 3.9 (3.6-5.1) mmol/L Chloride 106 (96-114) mmol/L Carbon Dioxide 27 (20-32) mmol/L Anion Gap 5 L (7-15) mEq/L BUN 15 (7-30) mg/dL Creatinine 1.0 (0.5-1.5) mg/dL Estimated Creat Clear 65.20 Estimated GFR 84 ml/min Glucose 124 H (60-115) mg/dL Calcium 8.6 (8.4-10.6) mg/dL C-Reactive Protein 0.8 (0.5-1.0) mg/dL NT-Pro-B Natriuret Pep 30 pg/mL SARS-CoV-2 (PCR) Negative SARS-CoV-2 (Negative) Influenza Type A (PCR) Negative PCR FLU A (Negative) Influenza Type B (PCR) Negative PCR FLU B (Negative) RSV (PCR) Negative PCR RSV (Negative) POC Troponin I 0.01 (0.01-0.04) ng/ml 06/14/24 06/14/24 Range/Units 00:07 01:52 WBC (4.50-11.00) K/uL RBC (4.30-5.90) m/uL Hgb (13.5-17.5) gm/dL Hct (37.0-53.0) % MCV (80-100) fL MCH (26-34) pg MCHC (32-36) gm/dL RDW Coeff of Ron (11.5-15.5) % Plt Count (140-440) K/uL Neut % (Auto) (42.0-72.0) % Lymph % (Auto) (20-44) % Garvin % (Auto) (0.0-11.0) % Eos % (Auto) (0.0-7.0) % Baso % (Auto) (0.0-3.0) % Neut # (Auto) (1.7-7.0) K/uL Lymph # (Auto) (0.90-2.90) K/uL Garvin # (Auto) (0.00-0.90) K/UL Eos # (Auto) (0.00-0.50) K/uL Baso # (Auto) (0.00-0.30) K/uL Abs Immat Gran (auto) (0.00-0.30) K/uL Imm/Tot Granulo (auto) % INR (0.91-1.10) APTT (23-33) Seconds D-Dimer Quant (PE/DVT) (0.00-0.50) ug/ml Sodium (135-149) mmol/L Potassium (3.6-5.1) mmol/L Chloride (96-114) mmol/L Carbon Dioxide (20-32) mmol/L Anion Gap (7-15) mEq/L BUN (7-30) mg/dL Creatinine (0.5-1.5) mg/dL Estimated Creat Clear Estimated GFR ml/min Glucose (60-115) mg/dL Calcium (8.4-10.6) mg/dL C-Reactive Protein (0.5-1.0) mg/dL NT-Pro-B Natriuret Pep pg/mL SARS-CoV-2 (PCR) (Negative) Influenza Type A (PCR) (Negative) Influenza Type B (PCR) (Negative) RSV (PCR) (Negative) POC Troponin I 0.00 L 0.00 L (0.01-0.04) ng/ml <Justin Batista MD - Last Filed: 06/14/24 09:53> Lab Results 06/13/24 06/13/24 06/13/24 Range/Units 22:38 23:00 23:08 WBC 6.77 (4.50-11.00) K/uL RBC 4.65 (4.30-5.90) m/uL Hgb 13.6 (13.5-17.5) gm/dL Hct 40.2 (37.0-53.0) % MCV 87 (80-100) fL MCH 29 (26-34) pg MCHC 34 (32-36) gm/dL RDW Coeff of Ron 11.7 (11.5-15.5) % Plt Count 187 (140-440) K/uL Neut % (Auto) 62.2 (42.0-72.0) % Lymph % (Auto) 26.4 (20-44) % Garvin % (Auto) 9.5 (0.0-11.0) % Eos % (Auto) 1.2 (0.0-7.0) % Baso % (Auto) 0.3 (0.0-3.0) % Neut # (Auto) 4.21 (1.7-7.0) K/uL Lymph # (Auto) 1.79 (0.90-2.90) K/uL Garvin # (Auto) 0.60 (0.00-0.90) K/UL Eos # (Auto) 0.08 (0.00-0.50) K/uL Baso # (Auto) 0.02 (0.00-0.30) K/uL Abs Immat Gran (auto) 0.03 (0.00-0.30) K/uL Imm/Tot Granulo (auto) 0.4 % INR 1.11 H (0.91-1.10) APTT 30 (23-33) Seconds D-Dimer Quant (PE/DVT) 0.21 (0.00-0.50) ug/ml Sodium 138 (135-149) mmol/L Potassium 3.9 (3.6-5.1) mmol/L Chloride 106 (96-114) mmol/L Carbon Dioxide 27 (20-32) mmol/L Anion Gap 5 L (7-15) mEq/L BUN 15 (7-30) mg/dL Creatinine 1.0 (0.5-1.5) mg/dL Estimated Creat Clear 65.20 Estimated GFR 84 ml/min Glucose 124 H (60-115) mg/dL Calcium 8.6 (8.4-10.6) mg/dL C-Reactive Protein 0.8 (0.5-1.0) mg/dL NT-Pro-B Natriuret Pep 30 pg/mL SARS-CoV-2 (PCR) Negative SARS-CoV-2 (Negative) Influenza Type A (PCR) Negative PCR FLU A (Negative) Influenza Type B (PCR) Negative PCR FLU B (Negative) RSV (PCR) Negative PCR RSV (Negative) POC Troponin I 0.01 (0.01-0.04) ng/ml 06/14/24 06/14/24 Range/Units 00:07 01:52 WBC (4.50-11.00) K/uL RBC (4.30-5.90) m/uL Hgb (13.5-17.5) gm/dL Hct (37.0-53.0) % MCV (80-100) fL MCH (26-34) pg MCHC (32-36) gm/dL RDW Coeff of Ron (11.5-15.5) % Plt Count (140-440) K/uL Neut % (Auto) (42.0-72.0) % Lymph % (Auto) (20-44) % Garvin % (Auto) (0.0-11.0) % Eos % (Auto) (0.0-7.0) % Baso % (Auto) (0.0-3.0) % Neut # (Auto) (1.7-7.0) K/uL Lymph # (Auto) (0.90-2.90) K/uL Garvin # (Auto) (0.00-0.90) K/UL Eos # (Auto) (0.00-0.50) K/uL Baso # (Auto) (0.00-0.30) K/uL Abs Immat Gran (auto) (0.00-0.30) K/uL Imm/Tot Granulo (auto) % INR (0.91-1.10) APTT (23-33) Seconds D-Dimer Quant (PE/DVT) (0.00-0.50) ug/ml Sodium (135-149) mmol/L Potassium (3.6-5.1) mmol/L Chloride (96-114) mmol/L Carbon Dioxide (20-32) mmol/L Anion Gap (7-15) mEq/L BUN (7-30) mg/dL Creatinine (0.5-1.5) mg/dL Estimated Creat Clear Estimated GFR ml/min Glucose (60-115) mg/dL Calcium (8.4-10.6) mg/dL C-Reactive Protein (0.5-1.0) mg/dL NT-Pro-B Natriuret Pep pg/mL SARS-CoV-2 (PCR) (Negative) Influenza Type A (PCR) (Negative) Influenza Type B (PCR) (Negative) RSV (PCR) (Negative) POC Troponin I 0.00 L 0.00 L (0.01-0.04) ng/ml <Ryan Whyte MD - Last Filed: 06/14/24 02:52> ECG Data Attestation: I personally reviewed and interpreted this ECG as follows: <Justin Batista MD - Last Filed: 06/14/24 09:53> Interpretation: nitial EKG shows maybe some hyperacute T-waves in V1 and V2. With just a hair elevation in comparison to old EKGs but there is no reciprocal changes I can see. He ventricular rate is 107, QRS QT and QTC are normal <Justin Batista MD - Last Filed: 06/14/24 09:53> Discharge Plan Discharge Clinical Impression: Chest pain, Incidental pulmonary nodule <Justin Batista MD - Last Filed: 06/14/24 09:53> Patient Disposition: Home, Self-Care <Justin Batista MD - Last Filed: 06/14/24 09:53> Condition: Stable <Justin Batista MD - Last Filed: 06/14/24 09:53> Instructions: Chest Pain (DC), Pulmonary Nodules (ED) <Justin Batista MD - Last Filed: 06/14/24 09:53> Additional Instructions: As we discussed, so for the workup for your chest pain looks good. No sign of heart attack at this time. However you need to monitor your symptoms carefully and if you have worsening pain, trouble breathing or develops new symptoms such as cough or fever you should come back to the ER right away to be rechecked. Even if you are doing well, I want you to follow-up with your learning solutions specialist within 1-[address] [facility] ([phone] ) this morning after 8 AM to make an ER follow-up appointment with Dr. Brown or one of her partners On your chest x-ray , you have a small nodule in your lung. This is probably benign and noncancerous. However, I want you to follow-up with your regular primary care provider to get a CT scan of your lungs within the next 2-3 weeks to double check the nodule. <Justin Batista MD - Last Filed: 06/14/24 09:53> Prescriptions: No Action acyclovir 400 mg tablet 400 mg PO Q12H Patient Comments: TAKE ONE TABLET BY MOUTH TWICE DAILY albuterol sulfate 90 mcg/actuation HFA aerosol inhaler 2 puff INHALATION Q4H PRN Patient Comments: Inhale 2 puffs by mouth into the lungs every 4 (four) hours as needed. buspirone 10 mg tablet 10 mg PO TID PRN Patient Comments: Take 1 tablet (10 mg) by mouth 3 times a day as needed (anxiety). cyclobenzaprine 10 mg tablet 10 mg PO TID PRN Patient Comments: TAKE 1 TABLET BY MOUTH 3 TIMES DAILY NEEDED FOR MUSCLE SPASMS escitalopram oxalate 10 mg tablet 10 mg PO DAILY famotidine 40 mg tablet 40 mg PO Q12H Patient Comments: Take 1 tablet (40 mg) by mouth twice a day. gabapentin 600 mg tablet 600 mg PO TID Patient Comments: TAKE 2 TABLETS BY MOUTH 3 TIMES DAILY isosorbide mononitrate 30 mg tablet extended release 24 hr 30 mg PO DAILY Patient Comments: Take 1 tablet (30 mg) by mouth once daily. hydralazine 10 mg tablet 10 mg PO BID Linzess 290 mcg capsule 290 mcg PO DAILY Patient Comments: Take 1 capsule (290 mcg) by mouth once daily. metoprolol tartrate 25 mg tablet 25 mg PO BID Patient Comments: Take one-half tablet (12.5 mg) by mouth twice a day. mirtazapine 15 mg tablet 15 mg PO DAILY Patient Comments: Take 1 tablet (15 mg) by mouth at bedtime. nitroglycerin 0.4 mg tablet, sublingual 0.4 mg sublingual Q5M PRN Patient Comments: place 1 tablet (0.4 mg) under the tongue every 5 (five) minutes as needed for chest pain. Up to 3 doses, call 911 if no relief. oxycodone-acetaminophen 10-325 mg tablet 1 tab PO Q6H PRN quetiapine 200 mg tablet 200 mg PO HS Patient Comments: Take 2 tablets (400 mg) by mouth at bedtime. quetiapine 50 mg tablet 50 mg PO BID Patient Comments: Take 1 tablet (50 mg) by mouth twice a day for anxiety rosuvastatin 40 mg tablet 40 mg PO HS Patient Comments: TAKE ONE TABLET BY MOUTH AT BEDTIME trazodone 50 mg tablet 50 mg PO HS Patient Comments: Take 2 tablets (100 mg) by mouth at bedtime as needed for sleep. <Justin Batista MD - Last Filed: 06/14/24 09:53> Follow Up/Referrals: Provider,Not a Local [Primary Care Provider] - <Justin Batista MD - Last Filed: 06/14/24 09:53> Stand Alone Forms: MyHealth Info Instructions <Justin Batista MD - Last Filed: 06/14/24 09:53>
[2024-06-13] MEDS: 0.9 % SODIUM CHLORIDE 1000 ml 1,000 ML IV (23:05)
[2024-06-13] MEDS: MORPHINE 4 MG/ML INJ IVP ×2 (23:07→23:36)
[2024-06-13] MEDS: ALBUTEROL SULFATE 2.5 MG/3 ML VIAL.NEB NEB (23:07)
[2024-06-13 23:08] VITALS: BP 113/74; PULSE 100; RESP 22; O2SAT 91; O2SAT 96
[2024-06-13 23:08] LABS: Basophils Absolute Auto 0.02 K/uL (0.00-0.30); Basophils Percent Auto 0.3 % (0.0-3.0); Eosinophils Absolute Auto 0.08 K/uL (0.00-0.50); Eosinophils Percent Auto 1.2 % (0.0-7.0); Hematocrit 40.2 % (37.0-53.0); Hemoglobin* 13.6 gm/dL (13.5-17.5); Immature Granulocytes Abs Auto 0.03 K/uL (0.00-0.30); Immature Granulocytes Pct Auto 0.4 %; Lymphocytes Absolute Auto 1.79 K/uL (0.90-2.90); Lymphocytes Percent Auto 26.4 % (20-44); Mean Corpuscular HGB Conc 34 gm/dL (32-36); Mean Corpuscular Hemoglobin 29 pg (26-34); Mean Corpuscular Volume 87 fL (80-100); Monocytes Percent Auto 9.5 % (0.0-11.0); Neutrophils Absolute Auto 4.21 K/uL (1.7-7.0); Neutrophils Percent Auto 62.2 % (42.0-72.0); Platelet Count* 187 K/uL (140-440); RDW Coefficient of Variation % 11.7 % (11.5-15.5); Red Blood Count 4.65 m/uL (4.30-5.90); White Blood Count* 6.77 K/uL (4.50-11.00)
[2024-06-13 23:11] LABS: Slide Review Reflex No
[2024-06-13 23:14] LABS: Chloride* 106 mmol/L (96-114); Potassium* 3.9 mmol/L (3.6-5.1); Sodium* 138 mmol/L (135-149)
[2024-06-13 23:17] LABS: Estimated Glomerular Filt Rate 84 ml/min
[2024-06-13 23:18] LABS: Anion Gap 5 mEq/L (7-15); Blood Urea Nitrogen* 15 mg/dL (7-30); Calcium* 8.6 mg/dL (8.4-10.6); Carbon Dioxide* 27 mmol/L (20-32); Glucose* 124 mg/dL (60-115)
[2024-06-13 23:21] LABS: C Reactive Protein* 0.8 mg/dL (0.5-1.0)
[2024-06-13 23:23] LABS: INR 1.11 (0.91-1.10)
[2024-06-13 23:27] LABS: NT Pro B Type NatriureticPept* 30 pg/mL
[2024-06-13 23:31] VITALS: BP 134/78; PULSE 106; RESP 24; O2SAT 97
--- OUTSIDE RECORDS SUMMARY | 2024-06-13 23:32 | XMS_ITS | Clinical Summary ---
Author Organization [facility] Address [address] [place] [address] Care Team Providers Care [employer] Consultant Name Role Phone Kanwal Martinez MD Unavailable Malathi Shelton MD Unavailable [phone] Shi Hernandez MD Primary Care Provider [phone] Denilson Alfonso Chi OD Unavailable [phone] Allergies Active Allergy Reactions Criticality Noted Date Comments Citalopram 12/15/2014 Unable to Urinate. Amlodipine Swelling 06/14/2010 Tramadol Anaphylaxis High 02/17/2017 Pt states, gives him seizures Hydrocodone-Acetamino phen GI Disturbance,Dermatitis ,Nausea 12/24/2005 Nausea Medications Medication Sig Dispensed Refills Start Date End Date Status cloNIDine (CATAPRES) 0.1 MG tabletIndications:for withdrawl symptoms x 7 days Take 0.1 mg by mouth 3 times daily as needed (Withdrawal symptoms) as needed Active metoprolol (LOPRESSOR) 100 MG tablet Take 100 mg by mouth 2 times daily Active pramipexole (MIRAPEX) 1 MG tabletIndications:Res tless Leg Syndrome Take 1-2mg by mouth three times daily as needed Active rosuvastatin (CRESTOR) 40 MG tablet Take 40 mg by mouth daily Active ranitidine (ZANTAC) 300 MG tablet Take 300 mg by mouth nightly as needed for heartburn Active oxyCODONE-acetaminoph en (PERCOCET) 10-325 MG per tablet Take 1 tablet by mouth every 4 hours as needed (break though back pain) Active multivitamin, therapeutic with minerals (MULTI-VITAMIN) TABS tabletIndications:Man ia (H),Depression, unspecified depression type Take 1 tablet by mouth daily 100 tablet 3 09/30/2017 Active ibuprofen (ADVIL/MOTRIN) 600 MG tablet Take 1 tablet (600 mg) by mouth every 8 hours as needed for moderate pain 30 tablet 05/21/2018 Active topiramate (TOPAMAX) 50 MG tabletIndications:Ten anibal headache Take 1 tablet (50 mg) by mouth daily 30 tablet 11 09/03/2018 Active GABAPENTIN PO Take 1,200 mg by mouth 3 times daily Active valACYclovir (VALTREX) 500 MG tabletIndications:Gen ital herpes in men Take 1 tablet (500 mg) by mouth daily 90 tablet 3 10/26/2019 Active albuterol (PROAIR HFA/PROVENTIL HFA/VENTOLIN HFA) 108 (90 Base) MCG/ACT inhalerIndications:In termittent asthma, uncomplicated Inhale 1 puff into the lungs every 4 hours as needed for shortness of breath / dyspnea or wheezing 1 Inhaler 3 10/26/2019 Active acyclovir (ZOVIRAX) 400 MG tabletIndications:Gen ital herpes in men TAKE 1 TABLET(400 MG) BY MOUTH TWICE DAILY 180 tablet 3 03/08/2021 Active Active Problems Problem Noted Date Diagnosed Date Depression, major 09/30/2017 Altered mental state 09/27/2017 Depression, unspecified depression type 09/02/20 17 Chitra 08/13/2017 Agitation requiring sedation protocol 07/29/2017 Intermittent asthma, uncomplicated 05/05/2017 Opioid overdose, undetermined intent, initial en counter 01/31/2017 Generalized anxiety disorder 05/25/2015 Erectile dysfunction 07/03/2012 Major depressive disorder, single episode, moder ate 02/18/2011 Dyslipidemia 01/11/2011 Testosterone deficiency 07/28/2010 Chronic back pain 06/14/2010 Overview: Overview: Epidural 10/27, lidoderm no help Postlaminectomy syndrome, lumbar region 12/21/19 10 Ingrown toenail 12/18/2009 Laceration of finger 12/18/2009 Chronic pain 04/05/2009 Overview: Patient is followed by MARILOU ROJAS for ongoing prescription of narcotic pain medicine. Med: endocet . Maximum use per month: 120 Expected duration: 6 months Narcotic agreement on file: YES Clinic visit recommended: Q 3 months Generalized osteoarthrosis, unspecified site 04/2008 Umbilical hernia 10/05/2007 DDD (degenerative disc disease), lumbar 03/03/20 07 Status post spinal arthrodesis 03/03/2007 Genital herpes in men 10/09/2006 Constipation 03/04/2006 Overview: Problem list name updated by automated process. Provider to review GERD (gastroesophageal reflux disease) 6 Overview: Overview: [facility] 03/06/11 - neg Narcotic abuse Overview: Receiving Narcotics from multiple providers. HTN (hypertension) Herpes simplex virus (HSV) infection Overview: recurrent on hip Problem list name updated by automated process. Provider to review Resolved Problems Problem Noted Date Diagnosed Date Resolved Date Obesity 12/12/2011 03/26/2013 Transient global amnesia 12/12/2011 Hyperlipidemia LDL goal <100 03/25/2010 03/26/2013 Overview: Provider review. Agree with goal. Rose Rowan, BACK [employer]END[employer]INE Lumbago 04/23/2007 10/31/2009 Essential hypertension 03/25/200710/09 Overview: Problem list name updated by automated process. Provider to review Mild persistent asthma 10/07/200605/05 iamJOINT PAIN-LOWER LEG 11/19/200501/15 iamPOSTSURGICAL STATES NEC 11/19/2005 0 01/30/2006 iamACCIDENT ON INDUSTR PREMISES 11/19/2005 01/30/2006 iamFALL FROM SLIP,TRIP,STUMBLE NEC 11/19/2005 01/30/2006 Immunizations Name Administration Dates Next Due TD,PF 7+ (Tenivac) 09/01/2003 TDAP (Adacel,Boostrix) 12/18/2012 TDAP Vaccine (Adacel) 12/24/2019,12/18/2012 Td (Adult), Adsorbed 11/17/2003 Family History Medical History Relation Comments C.A.D. Brother 3 Bypass at age 51 C.A.D. Father at 52 of HD Cerebrovascular Disease Father Diabetes Father Hypertension Father Cerebrovascular Disease Mother Glaucoma Mother Glaucoma Sister 1 Macular Degeneration No family hx of Relation Status Comments Brother 1 Alive congenital valve dz,,also coronary dz Brother 2 Alive Brother 3 Father hardening of the arteries Maternal Grandfather ca-poss aubrey g Maternal Grandmother (Age 80-90) Mother Alive Lupus, mini-stro kes Paternal Grandfather appendiciti s Paternal Grandmother (Age 80) lung ca Sister 1 Alive Sister 2 Alive Social History Tobacco Use Types Packs/Day Years Used Date Smoking Tobacco: Never Smokeless Tobacco: Never Alcohol Use Standard Drinks/Week Comments No 0 (1 standard drink = 0.6 oz pur e alcohol) dry since 1990 PHQ-2 Answer Date Recorded PHQ-2 Score 0 10/26/2019 Adolescent Education Answer Date Record ed Getting School Help Needed Not on file 08/23 Sex and Gender Information Value Date Recorded Sex Assigned at Not on file Gender Identity Not on file Sexual Orientation Not on file Last Filed Vital Signs Vital Sign Reading Time Taken Comments Blood Pressure 138/66 10/26/2019 1:15 PM THREAD MARKER Pulse 89 10/26/2019 1:15 PM THREAD MARKER Temperature 36.8 ??C (98.2 ??F) 10/26/2019 1:15 PM CS T Respiratory Rate 16 10/26/2019 1:15 PM THREAD MARKER Oxygen Saturation 99% 10/26/2019 1:15 PM THREAD MARKER Inhaled Oxygen Concentration - - Weight 83.5 kg (184 lb) 10/26/2019 1:15 PM THREAD MARKER Height 167.6 cm (5' 6) 04/12/2019 4:42 PM CDT Body Mass Index 29.7 04/12/2019 4:42 PM CDT Plan of Treatment Not on file Advance Directives For more information, please contact: [phone] * Full Code (Latest Code Status on File) Date Activated Date Inactivated Comments 09/30/2017 12:10 PM 10/07/2017 5:51 PM * Full Code Date Activated Date Inactivated Comments 09/30/2017 8:53 AM 09/30/2017 12:10 PM * Full Code Date Activated Date Inactivated Comments 09/27/2017 3:33 PM 09/30/2017 8:53 AM * Full Code Date Activated Date Inactivated Comments 09/02/2017 1:20 AM 09/02/2017 5:16 PM * Full Code Date Activated Date Inactivated Comments 08/13/2017 2:11 AM 08/18/2017 4:20 PM Care Teams [employer] Consultant Relationship Specialty Start Date End Date Shi Hernandez MD [address] [place] [address] PCP - General Family Practice 04/12/19 Kanwal Martinez MD [address] [id number] Ophthalmology 02/05/16 Malathi Shelton MD [address] [id number] Ophthalmology 02/08/16 Denilson Alfonso Chi, OD [address] [place] [address] [id number] Optometry 07/26/19
--- OUTSIDE RECORDS SUMMARY | 2024-06-13 23:32 | XMS_ITS | Clinical Summary ---
Author Organization [employer] [facility] Address [place], [place] [address] Care Team Providers Care Subway Car Repairer Name Role Phone Amy Hernandez MD Primary Care Provider Allergies Active Allergy Reactions Criticality Noted Date Comments Amitriptyline Other - Describe In Comment Field 12/14/2010 Black outs. Citalopram *Unknown 12/15/2014 Unable to Urinate. Duloxetine Hcl Angioedema 01/17/2022 Swelling of lips and tongue Amlodipine Edema 11/04/2011 Paroxetine Other - Describe In Comment Field 01/24/2022 Black outs Fluoxetine Other - Describe In Comment Field 01/17/2022 Due to be allergic to amitriptyline Tramadol Anaphylaxis,Rash High 02/17/2017 Pt states, gives him seizures Hydrocodone-Acetaminop hen Rash,Nausea Only 09/24/2007 dermatitis Medications Medication Sig Dispensed Refills Start Date End Date Status acyclovir (ZOVIRAX) 400 mg tablet Take 400 mg by mouth 2 times daily. Active cyclobenzaprine (FLEXERIL) 10 mg tablet Take 10 mg by mouth 3 times daily if needed for Muscle Spasm. Active famotidine (Pepcid) 40 mg tablet Take 40 mg by mouth 2 times daily. Active gabapentin (NEURONTIN) 600 mg tablet Take 1,200 mg by mouth 3 times daily. Active linaCLOtide (Linzess) 290 mcg cap capsule Take 290 mcg by mouth once daily. Active nitroglycerin (NITROSTAT) 0.[address] 0.4 mg under the tongue every 5 minutes if needed for Chest Pain. Active QUEtiapine (SEROQUEL) 200 mg tablet Take 400 mg by mouth at bedtime. Active rosuvastatin (CRESTOR) 40 mg tablet Take 40 mg by mouth at bedtime. Active traZODone (DESYREL) 50 mg tablet Take 100 mg by mouth at bedtime. Active polyethylene glycoL (MIRALAX) 17 gram/dose powder Mix 8 scoops in liquid then take by mouth each time if needed for Constipation. Take 8 scoops as prep for bowel movement, approximately Q3 days Active oxyCODONE-acetaminop hen, 10-325 mg, (PERCOCET) 10-325 mg per tablet Take 1 Tablet by mouth every 4 hours if needed for Pain. Active hydrALAZINE (APRESOLINE) 10 mg tabletIndications:HT N (hypertension), benign Take 1 Tablet (10 mg) by mouth 2 times daily. 60 Tablet 01/02/2022 Active albuterol HFA (PRO-AIR; VENTOLIN; PROVENTIL) 90 mcg/actuation inhaler Inhale 2 puffs by mouth into the lungs every 4 (four) hours as needed. 12/28/2021 Active miscellaneous medical supply misc Lumbar brace DX: Failed back surgery syndrome Nolberto Santoro MD [facility] [phone] Fax 11/29/2020 Active mirtazapine (REMERON) 15 mg tablet Take 15 mg by mouth. 01/17/2022 Active naloxone (NARCAN) 4 mg/actuation nasal spray 4 mg. 01/02/2021 Active ondansetron (ZOFRAN ODT) 4 mg disintegrating tablet 09/20/2021 Active SUMAtriptan (IMITREX) 100 mg tablet Take 100 mg by mouth 2 times daily if needed for Migraine. Give at minimum 2hrs apart. Max Dose: 200mg per 24hrs. Active aspirin (ECOTRIN) 81 mg enteric coated tablet Take 81 mg by mouth. Active busPIRone (BUSPAR) 10 mg tablet Take 10 mg by mouth. 03/15/2022 Active isosorbide mononitrate (IMDUR) 30 mg extended release tablet 24 Hour Take 30 mg by mouth. 03/14/2022 Active metoprolol tartrate (LOPRESSOR) 25 mg tablet metoprolol tartrate 25 mg tablet Take one-half tablet (12.5 mg) by mouth twice a day. 03/15/2022 Active QUEtiapine (SEROQUEL) 50 mg tablet 50 mg. Active Active Problems Problem Noted Date Diagnosed Date Right ureteral stone 12/30/2021 Chronic pancreatitis 12/30/2021 Depression 09/02/2017 Intermittent asthma, uncomplicated 05/05/2017 Generalized anxiety disorder 05/25/2015 Major depressive disorder, single episode, moder ate 02/18/2011 Dyslipidemia 01/11/2011 Chronic back pain 06/14/2010 Overview: Overview: Epidural 10/27, lidoderm no help Epidural 10/27, lidoderm no help Postlaminectomy syndrome, lumbar region 12/21/19 10 Ingrown toenail 12/18/2009 Laceration of Finger-resolved 12/18/2009 HTN (hypertension), benign 12/12/2009 GERD (gastroesophageal reflux disease) 6 Overview: Overview: ugi endo 03/06/11 - neg ugi endo 03/06/11 - neg Social History Tobacco Use Types Packs/Day Years Used Date Smoking Tobacco: Never Smokeless Tobacco: Never Comments:Unknwon Alcohol Use Standard Drinks/Week Comments Not Currently 0 (1 standard drink = 0.6 oz pur e alcohol) 1990 PHQ-2 Answer Date Recorded PHQ-2 TOTAL SCORE 0 04/03/2022 Social Connections Answer Date Recorded Frequency of Communication with Friends and Fami ly Not on file 04/03/2022 Sex and Gender Information Value Date Recorded Sex Assigned at Not on file Gender Identity Not on file Sexual Orientation Not on file Obstetrics History Last Filed Vital Signs Vital Sign Reading Time Taken Comments Blood Pressure 156/94 04/03/2022 2:39 PM CDT Pulse 82 04/03/2022 2:39 PM CDT Temperature 36.2 ??C (97.1 ??F) 01/25/2022 2:40 PM CS T Respiratory Rate 16 01/25/2022 4:00 PM HAZARDOUS MATERIALS WASTE TECHNICIAN Oxygen Saturation 97% 01/25/2022 4:00 PM HAZARDOUS MATERIALS WASTE TECHNICIAN Inhaled Oxygen Concentration - - Weight 84.4 kg (186 lb) 04/03/2022 2:39 PM CDT Height 167.6 cm (5' 6) 04/03/2022 2:39 PM CDT Body Mass Index 30.02 04/03/2022 2:39 PM CDT Plan of Treatment Health Maintenance Due Date Last Done Comments Tdap 1970 HIV for age 15-65 1974 Hepatitis C screening for ag e 18-79 1977 Tetanus booster 1979 Colonoscopy through age 75 2004 Lipids for age 45-75 2004 Zoster (shingles) series for age 50+ (1 of 2) 2009 BMI (ht and wt on same day) for age 18+ 04/03/2023 04/03/2022 Depression screening for age 12+ 04/03/2023 04/03/20 22 COVID-19 vaccine series (2022- season) 2024 09/23/2023, 09/20/2022, 03/15/2022, Additional history exists Pneumococcal series for age 65+ (1 of 1 - PCV) 2024 Influenza for age 65+ 07/18/2024 Medical Devices Implanted Type Area Devulcanizer Tender Device Identifier Shelf Expiration Date Model / Serial / Lot Stent Uret [id number] Percuflex Hydroplus - [id number] Implanted:Qty: 1 on 01/25/2022 by Thai Cruz MD at [facility] Right: [facility]re[facility] 11/04/2024 [id number] / / [id number] Explanted Type Area Devulcanizer Tender Device Identifier Shelf Expiration Date Model / Serial / Lot Stent Uret [id number] Percuflex Hydroplus - [id number] Implanted:Qty: 1 on 12/30/2021 by Kareem Denton MD at [facility] Explanted:Qty: 1 on 01/25/2022 by Thai Cruz MD at [facility] Right: Ureter [facility] 09/12/2024 [id number] / / [id number] Advance Directives * Full Code (Latest Code Status on File) Date Activated Date Inactivated Comments 01/25/2022 8:42 AM 01/25/2022 6:34 PM Should be di scussed pre operatively with anesthesia or surgeon Question Answer Comments Code Status Discussion: Not Discussed * Full Code Date Activated Date Inactivated Comments 12/30/2021 1:35 PM 01/02/2022 3:57 PM Question Answer Comments Code Status Discussion: Reviewed Preferences * Full Code Date Activated Date Inactivated Comments 01/27/2009 6:54 PM 01/30/2009 2:40 PM * Full Code Date Activated Date Inactivated Comments 01/27/2009 9:27 AM 01/27/2009 6:54 PM Care Teams Subway Car Repairer Relationship Specialty Start Date End Date Amy Hernandez MD PCP - General 01/19/09
--- OUTSIDE RECORDS SUMMARY | 2024-06-13 23:32 | XMS_ITS | Continuity of Care Document ---
Author Organization [facility] Address [address] [address] [place] [address] Phone Care Team Providers Care Whiting Can Worker Name Role Phone No Information Unavailable Unavailable Allergies, Adverse Reactions, Alerts Substance Reaction Status Criticality DULOXETINE HCL Swelling Active No Informatio n amitriptyline Loss of consciousness Active No In formation PAROXETINE HCL Loss of consciousness Active No I nformation acetaminophen Abdominal pain Active No Informati on HYDROCODONE BITARTRATE Abdominal pain Active No Information Medications Medication Instructions Dosage Effective Dates (start - stop) Status Comments Miralax 17 gram/dose oral powder take (17G) by oral route 3 times every day mixed with 8 oz. water, juice, soda, coffee or tea 17 G - Active Linzess 290 mcg capsule take 1 capsule by oral route every day on an empty stomach at least 30 minutes before 1st meal of the day 290 MCG - Active Miralax 17 gram/dose oral powder Take full bottle with directions as listed on the constipation bowel cleanse handout - Active Linzess 290 mcg capsule take 1 capsule by oral route every day on an empty stomach at least 30 minutes before 1st meal of the day 290 MCG - Active Percocet unknown Take two tablets by mouth twice per day - Active metoprolol tartrate 50 mg tablet take 1 tablet by oral route 2 times every day with meals 50 MG - Active CRESTOR (unknown strength) take 1 tablet by oral route every day Not Available - Active GABAPENTIN (unknown strength) take 1 capsule by oral route 4 times every day Not Available - Active DEPAKOTE (unknown strength) take 2 tablet by oral route every day Not Available - Active CYCLOBENZAPRINE HCL (unknown strength) take 1 tablet by oral route 3 times every day Not Available - Active Miralax 17 gram/dose oral powder take (17G) by oral route 3 times every day mixed with 8 oz. water, juice, soda, coffee or tea 17 G - Active PROAIR HFA (unknown strength) inhale 2 puff by inhalation route every 4 - 6 hours as needed Not Available - Active Procedures Procedure Date Colonoscopy Flex; W/remov Les- Level Iv-surg Path Gross/micro Offic/outpt E&m New Mod-hi Routine Serum Collection Gg; Iga, Igd, Igg, Igm, Ea Thyroid Stim Hormone Advance Directives Directive Yes / No Effective Date File Name No Information Encounters Encounter Description Practice Location Reason(s) For Visit Diagnoses Date Provider Providers Copied on Encounter [facility], [address] [address], [place], [id number], [place] tel:[phone] No Information 4 No Information [facility] [place], [address] [address], [place], [id number], [place] tel:[phone] [facility] Colorectal polyp detected on colonoscopyBenig n neoplasm of ascending colonBenign neoplasm of transverse colon [address], [id number], [place]. tel:[phone] Referring Provider: Amy Whitley, [address] [place], [address]. tel:[phone] Offic/outpt E&m [facility] [place], [address] [address], [place], [id number], [place] tel:[phone] [facility] GI Symptoms or Concerns (chief complaint) Constipation in maleChange in bowel habitsTenesmus (rectal)Abdomina l pain in maleRectal bleedingDietary counseling and surveillanceEsse ntial (primary) hypertension [address] [facility] [address], [place], [place], [address], [place]. tel:[phone] Referring Provider: Amy Whitley, [address], [place], [address]. tel:[phone] [facility], [address] [address], [place], [address], [place] tel:[phone] [facility] No Information No Information Family History Family Member Type Diagnosis Age At Onset Sister Problem (finding) Thyroid disorder Father Problem (finding) Brother Problem (finding) Cirrhosis Mother Problem (finding) malignant neoplasm of l devan Son Problem (finding) Alive and well Sister Problem (finding) peptic ulceration Sister Problem (finding) malignant neop lasm of breast in first degree relative Daughter Problem (finding) asthma Payers Payer name Insurance type Covered libertarian ID Authoriza tion(s) No Information Social History Type Description Quantity Date Captured Comments Sex Male Smoking Status No Information Chief Complaint And Reason For Visit No Information Reason For Referral Reason For Referral No Information Plan Of Treatment Date Type Action Status Goal Lifestyle education regardin g diet completed History Of Present Illness Encounter Date Complaint History Of Prese nt Illness GI Symptoms or Concerns Fish bowman is a 58-year-old man who I am seeing in consultation at the request of Dr. Angi Hernandez for constipation.According to the patient, starting relatively abruptly in August 2018, he developed the sensation of stool being stuck in his rectum, a feeling of incomplete evacuation, and decreased bowel movements. This is associated with right flank pain and left lower quadrant pain. He apparently got an x-ray that showed a colon full of stool, as well as blood work that was relatively normal, although I do not have these results. His primary care physician had him do a full colon cleanse with a bottle of MiraLax, and also had him take 4 bottles of magnesium citrate. He said that he did not feel much benefit from this. He also tried 2 Fleet enemas as well as 2 weeks of daily suppositories, but this gave him no relief. Currently, he is taking MiraLax 3 capfuls a day, and still says that he has issues with constipation. He says that he will get a little bit out of Functional Status Date Functional Assessmen t No Information Instructions Date Instruction Additional Infor nissa Colon Polyps Related to Color ectal polyp detected on colonoscopy 1. Blood work today - TSH, celiac panel2. Constipation bowel cleanse (Handout) then the following day, start linaclotide 290mcg/day. Take this once a day. 3. We will plan for colonoscopy with 2 day prep. Don't schedule this closer than 2 weeks from now.If still symptomatic with new medications, and after the colonoscopy, then we will refer you to [facility] for more testing. Related to Constipation in male Constipation Bowel Cleanse Relat ed to Constipation in male Constipation Bowel Cleanse Relat ed to Constipation in male Lifestyle education regarding di et Related to Dietary counseling and surveillance Assessments Type Assessment Date No Information Patient Care Teams Name Effective Dates (start - stop) Status Members No Information
--- OUTSIDE RECORDS SUMMARY | 2024-06-13 23:32 | XMS_ITS | Continuity of Care Document ---
Author Organization [facility] Address [address] [place] [address] Phone Care Team Providers Care Acid Pump Operator Name Role Phone Oralia Garces CNP Unavailable Unavailab le Procedures Procedure Date Init Inpt Cons New/estab Low 4 12 QA DONE Init Hosp-da E&m Mod Allyson QA DONE Offic/outpt E&m Estab Low-mod 8 Offic/outpt E&m Estab Low-mod 8 Offic/outpt E&m Estab Low-mod 8 Inj Anes Facet Jt; Lumb/sac-1l 08 Inj Anes Facet Jt; Lumb/sac-ea 08 Fluoroscopic Guidance For Needle Placeme nt - Spine Fluoroscopic Guidance For Needle Placeme nt - Spine Inj Anes Facet Jt; Lumb/sac-1l 08 Inj Anes Facet Jt; Lumb/sac-ea 08 Offic/outpt E&m Estab Low-mod 8 Rad Exam S I Jt Arthrogrphy Ra 08 Inj-s I Jt Arthrog &/ Anes/courtney 08 Offic/outpt E&m Estab Mod-hi 2 08 Phys Therap Eval Therap Activities 1-on-1 Ea 15 08 Offic/outpt E&m Estab Low-mod 8 Offic Cons New/estab Mod-hi 60 08 Fluoroscopic Guidance For Needle Placeme nt - Spine Inj Anes Facet Jt; Lumb/sac-1l 08 Fluoro Guidance - Spine Facet-Lumb/Sac-Sgl Lvl Advance Directives Directive Yes / No Effective Date File Name No Information Encounters Encounter Description Practice Location Reason(s) For Visit Diagnoses Date Provider Providers Copied on Encounter Init Inpt Cons New/estab Low 4 [facility], [address], [place], [id number], [place] tel:[phone] [facility] No Information 2 Tomshine Oralia. [address] , [address], [place], [id number], [place]. tel:[phone] Referring Provider: Amy Whitley, [address] [place], [address]. tel:[phone] Offic/outpt E&m Estab Low-mod [facility], [address], [place], [id number], [place] tel:[phone] [facility] No Information 8 [facility] Oralia. [address] , [address], [place], [address], [place]. tel:[phone] Referring Provider: Amy Whitley, [address] [place], [address]. tel:[phone] Offic/outpt E&m Estab Low-mod [facility] [address], [place], [id number], tel:[phone] [facility] No Information 7200 8 Tomshine Oralia. [address] , [address], [place], [id number], [place]. tel:[phone] Referring Provider: Amy Whitley, [address] [place], [address]. tel:[phone] Offic/outpt E&m Estab Low-mod [facility], [address], [place], [place], [address], [place] tel:[phone] [facility] No Information Sep-1 8 No Information Referring Provider: Amy Whitley, [address] [place], [address]. tel:[phone] [facility], [address], [place], [id number], [place] tel:[phone] [facility] No Information Sep-0 8 No Information Referring Provider: Amy Whitley, [address] [place], [address]. tel:[phone] [facility], [address], [place], [id number], [place] tel:[phone] [facility] No Information Sep-0 8 No Information Referring Provider: Amy Whitley, [address] [place], [address]. tel:[phone] Offic/outpt E&m Estab Low-mod [facility], [address], [place], [place], [id number], [place] tel:[phone] [facility] No Information Dez Barton. [address], [address], [place], [place], [address], [place]. tel:[phone] Referring Provider: Amy Whitley, [address] [place], [address]. tel:[phone] [facility], [address], [place], [place], [id number], [place] tel:[phone] [facility] No Information No Information Referring Provider: Amy Whitley, [address] [facility], [place], [address]. tel:[phone] Offic/outpt E&m Estab Mod-hi 2 [facility], [facility], [address] [facility] [address], [place], [place], [address], [place] tel:[phone] [facility] No Information Dez Barton. [address], [address], [place], [id number], [place]. tel:[phone] Referring Provider: Amy Whitley, [address] [place], [address]. tel:[phone] [facility], [facility], [address], [place], [place], [id number], [place] tel:[phone] [facility] No Information Sneha HAY Mayela. [address], [address], [place], [address], [place]. tel:[phone] Referring Provider: Amy Whitley, [address] [place], [address]. tel:[phone] Offic/outpt E&m Estab Low-mod [facility], [facility], [address], [place], [place], [id number], [place] tel:[phone] [facility] No Information 8 No Information Referring Provider: Amy Whitley, [address] [place], [address]. tel:[phone] Offic Cons New/estab Mod-hi 60 [facility], [address], [place], [place], [address], tel:[phone] [facility] No Information 8 Dez Barton. [address], [place], [place], [id number], [place]. tel:[phone] Referring Provider: Amy Whitley, [address] [place], [address]. tel:[phone] [facility], [address] [facility] [address], [place], [place], [address], tel:[phone] [facility] No Information 8 No Information Referring Provider: Amy Whitley, [address] [place], [address]. tel:[phone] [facility], [address], [place], [place], [address], tel:[phone] [facility] No Information 8 No Information Referring Provider: Amy Whitley, [address] [place], [address]. tel:[phone] Family History Family Member Type Diagnosis Age At Onset No Information Payers Payer name Insurance type Covered constitution party ID Authorzion lance(s) Medical Assistance [facility] [id number] Social History Type Description Quantity Date Captured Comments Sex Male Smoking Status No Information Chief Complaint And Reason For Visit No Information Reason For Referral Reason For Referral No Information History Of Present Illness Encounter Date Complaint History Of Prese nt Illness No Information Functional Status Date Functional Assessmen t No Information Instructions Date Instruction Additional Infor mation No Information Assessments Type Assessment Date No Information Patient Care Teams Name Effective Dates (start - stop) Status Members No Information
--- OUTSIDE RECORDS SUMMARY | 2024-06-13 23:32 | XMS_ITS | Continuity of Care Document ---
Author Organization [facility] Address [address] [place] [address] Phone Care Team Providers Care Drier And Grinder Tender Name Role Phone No Information Unavailable Unavailable Allergies, Adverse Reactions, Alerts Substance Reaction Status Criticality acetaminophen rash/nausea Active No Information HYDROCODONE BITARTRATE rash/nausea Active No In formation Medications Medication Instructions Dosage Effective Dates (start - stop) Status Comments Do Not Prescribe Do not prescribe - Ac tive Procedures Procedure Date Office/outpatient visit,est, mod 2008 X-ray exam lwr spine, min 4 views Office/outpatient visit,est, mod 2008 Special serv NEC, procedor report Office/outpatient visit,est, mod 2008 X-ray exam lower spine 2-3 views 2008 Office/outpatient visit,est, mod 2008 Postop followup visit X-ray exam lower spine 2-3 views 2008 Postop followup visit Bilateral Laminotomy, reexplr 1 intrspc lumbr Bilateral PA Laminotomy, reexplr 1 intrs pc lumbr Office/outpatient visit,est, mod 2008 Office/outpatient visit,est, low 2008 Initial inpatient consult, low 09 Advance Directives Directive Yes / No Effective Date File Name No Information Encounters Encounter Description Practice Location Reason(s) For Visit Diagnoses Date Provider Providers Copied on Encounter [facility], [address], [place], [address], [place] tel:[phone] No Information 2200 9 No Information [facility], [address], [place], [address], [place] tel:[phone] [facility] No Information 9 Zoe Donald. [facility], [address], [place], [place], [id number], [place]. tel:[phone] Office/outpa tient visit,est, mod [facility], [address], [place], [address], [place] tel:[phone] [facility] [place] No Information 9 Zoe Donald. [facility], [address], [place], [place], [id number], [place]. tel:[phone] Referring Provider: Choco Miller, [facility] [address], [place], [address]. tel:[phone] Office/outpa tient visit,est, mod [facility], [address], [place], [address], [place] tel:[phone] [facility] [place] [facility] [employer] No Information 200 9 Zoe Donald. [facility], [address], [place], [place], [id number], [place]. tel:[phone] Referring Provider: Choco Miller, [facility] [address], [place], [address]. tel:[phone] Office/outpa tient visit,est, mod [facility], [address], [place], [address], [place] tel:[phone] [facility] [place] [facility] [employer] No Information 9 Zoe Donald. [facility], [address], [place], [place], [id number], [place]. tel:[phone] Referring Provider: Choco Miller, [facility] [address], [place], [address]. tel:[phone] Office/outpa tient visit,est, mod [facility], [address], [place], [address], [place] tel:[phone] [employer] No Information May-0 1200 9 Zoe Bennett. [facility], [address], [place], [place], [id number], [place]. tel:[phone] Referring Provider: Choco Miller, [facility] [address], [address]. tel:[phone] [facility], [address], [place], [address], [place] tel:[phone] [employer] No Information Apr-0 1200 9 Zoebrett Bennett. [facility], [address], [place], [place], [id number], [place]. tel:[phone] Referring Provider: Choco Miller, [facility] [address], [address]. tel:[phone] [facility], [address], [address], [place] tel:[phone] [employer] No Information 0 9200 9 Zoebrett Bennett. [facility], [address], [place], [place], [id number], [place]. tel:[phone] Referring Provider: Choco Miller, [facility] [address], [address]. tel:[phone] [facility], [address], [place], [address], [place] tel:[phone] [facility] No Information 8-200 9 Zoe Donald. [facility], [address], [place], [id number], [place]. tel:[phone] Referring Provider: Choco Miller, [facility] [address], [address]. tel:[phone] Office/outpa tient visit,est, mod [facility], [address], [place], [place], [facility], tel:[phone] [facility] No Information Mar-0 9-200 9 Zoe Bennett. [facility], [address], [place], [place], [address] [place] [address], [place]. tel:[phone] Referring Provider: Choco Miller, [facility] [address], [place], [address]. tel:[phone] Office/outpa tient visit,est, low Z [facility], [address], [place], [place], [facility], tel:[phone] [facility] No Information Mar-0 6-200 9 Jonathan Fields. [facility] , [address], [place], [place], [facility], . tel:[phone] Referring Provider: Donnie Mariee, [facility] [address], [place], [facility]. tel:[phone] Initial inpatient consult, low Z [facility], [address], [place], [place], [facility], tel:[phone] [facility] No Information Mar-0 5-200 9 Jonathan Fields. [facility] , [address], [place], [place], [facility], [place]. tel:[phone] Referring Provider: Choco Miller, [facility] [address], [address]. tel:[phone] Family History Family Member Type Diagnosis Age At Onset No Information Payers Payer name Insurance type Covered republican ID Moshedavid jakemarian(s) Katerine Harlan Ins [facility] [id number] Social History Type Description Quantity Date Captured [...]
--- OUTSIDE RECORDS SUMMARY | 2024-06-13 23:32 | XMS_ITS | Referral Summary ---
Author Organization [place] Address [address] [facility] [place] [address] Care Team Providers Care Director Of Surgery Name Role Phone Kanwal Martinez MD Unavailable Malathi Shelton MD Unavailable [phone] Shi Hernandez MD Primary Care Provider [phone] Denilson Alfonso Chi OD Unavailable [phone] Allergies Active Allergy Reactions Criticality Noted [...] Provider review. Agree with goal. Rose Rowan, COMMERCIAL RETOUCHER Lumbago 04/23/2007 10/31/2009 Essential hypertension 03/25/200710/09 Overview: [...] Vaccine (Adacel) 12/24/2019,12/18/2012 Td (Adult), Adsorbed 11/17/2003 Social History Tobacco Use Types Packs/Day Years [...] Comments Blood Pressure 138/66 10/26/2019 1:15 PM RUG REPAIRER Pulse 89 10/26/2019 1:15 PM RUG REPAIRER Temperature 36.8 ??C (98.2 ??F) 10/26/2019 1:15 PM CS T Respiratory Rate 16 10/26/2019 1:15 PM RUG REPAIRER Oxygen Saturation 99% 10/26/2019 1:15 PM RUG REPAIRER Inhaled Oxygen Concentration - - Weight 83.5 kg (184 lb) 10/26/2019 1:15 PM RUG REPAIRER Height 167.6 cm (5' 6) 04/12/2019 4:42 PM CDT Body Mass Index 29.7 04/12/2019 4:42 PM CDT Plan of Treatment Not on file Advance Directives For more information, please contact: [phone] * Full Code (Latest Code Status on [...] 2:11 AM 08/18/2017 4:20 PM Care Teams Director Of Surgery Relationship Specialty Start Date End Date Shi Hernandez MD [address] [place] [address] PCP - General Family Practice 04/12/19 Kanwal Martinez MD [address] [address] Ophthalmology 02/05/16 Malathi Shelton MD [address] [place] [address] Ophthalmology 02/08/16 Denilson Alfonso Chi, OD [address] [place] [address] Optometry 07/26/19
[2024-06-13 23:33] LABS: Partial Thromboplastin Time* 30 Seconds (23-33)
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
--- OUTSIDE RECORDS SUMMARY | 2024-06-13 23:33 | XMS_ITS | Encounter Summary ---
Author Organization [place] Address [address] [facility] [place] [address] Care Team Providers Care Composing Room Machinist Name Role Phone Zackery Clark MD Primary Care Provide r Kanwal Martinez MD Unavailable Malathi Shelton MD Unavailable [phone] Patti Gannon OPTOMETRIC TECHNOLOGIST Unavailable [phone] Radha Leal MD Unavailable Hilary Negrete RN Unavailable Zackery Clark MD Unavailable [phone] Zackery Clark MD Unavailable [phone] Shi Hernandez MD Primary Care Provider [phone] Denilson Alfonso Chi OD Unavailable [phone] Tierra Cid VEGETABLE TRIMMER DATABASE MARKETING ANALYST Unavailable Azeem Rowan OD Unavailable [phone] Reason for Visit * Reason Onset Date Comments Hospital F/U 08/19/2017 Hospital F/U Mariely cidal Ideation, Intermittent Explosive Disorder 12/18 Encounter Details Date Type Department Care Team (Late st Contact Info) Description 08/19/2017 Telephone [place] [id number] [place] [address] Zackery Clark MD [address] [address] Hospital F/U (Hospital F/U Suicidal Ideation, Intermittent Explosive Disorder 12/18) Social History Tobacco Use Types Packs/Day Years [...] encounter Miscellaneous Notes * Telephone Encounter - Mariela Garcia RN - 08/19/2017 8:25 AM CDT Routing to care coordination. Multiple ER visits this past year with two admissions. Thank you! EVELIN Sanchez, RN documented in this encounter Plan of Treatment Not on file documented as of this encounter Visit Diagnoses Not on filedocumented in this encounter Additional Health Concerns Assessment Noted Time PHQ-9 Depression Total Score: 27 017 3:02 PM CDT documented as of this encounter Care Teams Composing Room Machinist Relationship Specialty Start Date End Date Zackery Clark MD PCP - General Family Practice 01/05/16 04/11/19 Zackery Clark MD [address] [address] PCP - Assigned PCP 08/17/17 01/19/19 Shi Hernandez MD [address] [place] [address] PCP - General Family Practice 04/12/19 Kanwal Martinez MD [address] [facility] [address] [place] [address] Ophthalmology 02/05/16 Malathi Shelton MD [address] [facility] [address] [place] [address] Ophthalmology 02/08/16 Patti Gannon, OPTOMETRIC TECHNOLOGIST Business Intelligence Architect 08/19/17 08/31/17 Radha Leal MD [facility] [address] [facility], [place] [address] Resident Student in [facility] health care education/training program 01/07/18 05/17/19 Hilary Negrete, ANDREE Nurse Coordinator Neurology 01/28/18 05/10/19 Zackery Clark MD [address] [id number] Assigned PCP 08/17/17 10/30/19 Denilson Alfonso Chi, OD [address] [place] [address] Optometry 07/26/19 Tierra Cid APRN DATABASE MARKETING ANALYST [facility] [address] [place] [address] Assigned PCP 10/31/19 11/01/22 Azeem Rowan, OD [address] [place] [id number] Assigned Surgical Provider 09/08/20 08/04/21 documented as of this encounter
--- OUTSIDE RECORDS SUMMARY | 2024-06-13 23:33 | XMS_ITS | Encounter Summary ---
Author Organization [facility] Address [address] [place] [address] Care Team Providers Care Automotive Finance Manager Name Role Phone Amy Hernandez MD Primary Care Provider [phone] Freddy Rosa MD Unavailable Reason for Referral * Consultation (Routine) - Authorized Specialty Diagnoses / Procedures Referred By Contac t Referred To Contact Gastroenterology Diagnoses Screening for colon cancer Amy Hernandez MD [address] [place] [address] [facility] [address] [place] [address] Referral ID Status Reason Start Date Expiration Date Visits Requested Visits Authorized [id number] Authorized Specialty Services Required 04/27/2024 1 1 Comments [facility] will be contacting you to schedule your appointment. If you have immediate needs or questions regarding this appointment, please call [facility] at [phone]. Note: You may be scheduled at another location. Reason for Visit * Reason Comments Medication management Medicare wellness Encounter Details Date Type Department Care Team (Late st Contact Info) Description 04/27/2024 12:30 PM CDT Office Visit [facility]. [place] [address] [facility] [place], [place] [address] Amy Hernandez MD [address] [place] [address] Encounter for Medicare annual wellness exam (Primary Dx); Gastroesophageal reflux disease, unspecified whether esophagitis present; HTN (hypertension), benign; Screening for colon cancer; Dyslipidemia; Hypotestosteronemia in male; Chronic bilateral low back pain with bilateral sciatica; Opioid dependence on agonist therapy (HCC) Social History Tobacco Use Types Packs/Day Years Used Date Smoking Tobacco: Never Passive Smoke Exposure: Never Smokeless Tobacco: Never Tobacco Cessation:Counseling Given: Not Answered Alcohol Use Standard Drinks/Week Comments No 0 (1 standard drink = 0.6 oz pur e alcohol) PHQ-2 Answer Date Recorded PHQ2 Total 0 04/27/2024 Sex and Gender Information Value Date Recorded Sex Assigned at Not on file Gender Identity Not on file Sexual Orientation Not on file documented as of this encounter Last Filed Vital Signs Vital Sign Reading Time Taken Comments Blood Pressure 134/74 04/27/2024 12:49 PM CDT Pulse 87 04/27/2024 12:19 PM CDT Temperature 36.4 ??C (97.5 ??F) 04/27/2024 12:19 PM C DT Respiratory Rate 16 04/27/2024 12:19 PM CDT Oxygen Saturation 95% 04/27/2024 12:19 PM CDT Inhaled Oxygen Concentration - - Weight 82.2 kg (181 lb 4.8 oz) 04/27/2024 12:19 PM CDT Height 167.6 cm (5' 6) 04/27/2024 12:19 PM CDT Body Mass Index 29.26 04/27/2024 12:19 PM CDT documented in this encounter Patient Instructions * Patient Instructions* Amy Hernandez MD - 04/27/2024 12:30 PM CDT In order to achieve and maintain the highest level of health, we recommend the following tests and healthy behaviors. You may have had many of these tests already and you may also be following this advice, but if you are not, please discuss this with your health care team. Drink alcohol only in moderation, avoid binge drinking and do not drink and drive. If you are sexually active, consider annual infection testing including testing for HIV, Gonorrhea,Chlamydia, and Syphilis. You should not use any tobacco products and, if you do, we should discuss your willingness to quit at each visit. You should watch your weight and keep it in the normal range. You should receive a tetanus booster every 10 years. Starting at age 50, you should have a colon cancer screening - either a colonoscopy every 10 years or an test for blood in the stool every 1 or 3 years (depending on test). You should have your blood pressure checked every year if your pressure is less than 120/80, and more frequently if it is higher. You should have a flu shot every year in the fall. You should have a series of 2 immunizations against Herpes Zoster (shingles) starting at age 50. Starting at age 35, you should have your cholesterol panel checked at least every 5 years if it is normal, and more frequently if not normal. Ask your provider if a daily aspirin is right for you. If you were born between 1945 and 1965 or have ever used IV drugs, you should have a one-time bloodtest to screen for Hepatitis C. In order to achieve and maintain the highest level of health, we recommend the following tests and healthy behaviors. You may have had many of these tests already and you may also be following this advice, but if you are not, please discuss this with your health care team. Drink alcohol only in moderation, avoid binge drinking and do not drink and drive. Ask your provider if a daily aspirin is right for you. Your should have a colon cancer screening test at least every 10 years - either a colonoscopy every10 years or an test for blood in the stool every 1 or 3 years (depending on test). You should have your blood pressure checked every year if your pressure is less than 120/80, and more frequently if it is higher. You should have a flu shot every year in the fall. You should have your cholesterol panel checked at least every 5 years if it is normal, and more frequently if it is not normal. You should have a series of two pneumonia vaccinations against pneumonia starting at age 65. You should not use any tobacco products and, if you do, we should discuss your willingness to quit at each visit. You should have a series of two immunizations against Herpes Zoster (shingles) starting at age 50. If you have ever smoked, you should be screened for an abdominal aortic aneurysm one time at or after age 65. You should watch your weight and keep it in the normal range. If you have hearing loss or problems with balance or dizziness, you should see an melangeur operator or visit a hearing and balance center. Your vision should be checked every year. The Senior Link Age Line is brought to you by the [place] [employer]. A free critical access hospitalwide information and assistance service- the free call that does it all! Call weekdays from 8:00AM to 4:30PM. Below are some of the services that can be provided to you: -Health Insurance Counseling (such as how to pick a Medicare Plan) -Prescription Drug Expense Assistance -Forms Assistance (such as applying for Medical Assistance and Medicare) -Home Care -Legal Assistance -Long-term Care Insurance -Long-term Care Planning Options -Caregiver Planning and Support -Grandparents raising Grandchildren -Transportation Assistance -Housekeeping and Chore Services. documented in this encounter Progress Notes * Amy Hernandez MD - 04/27/2024 12:30 PM CDT MEDICARE ANNUAL WELLNESS VISIT Fishnova Sofia Sr. is a 64 y.o. male who presents today for his annual Medicare Wellness Visit. Patient Care Team: Amy Hernandez MD as PCP - General RosaFreddy MD as PCP - Foxing Painter (Cardiovascular Disease) Past Medical history, Surgical History, Family History, Social History and Allergies were reviewed in [facility] and updated today as needed. Current Outpatient Medications: Medication Sig acyclovir (ZOVIRAX) 400 mg oral tablet Take 1 tab p.o. twice daily albuterol HFA (PROVENTIL;VENTOLIN HFA) 90 mcg/actuation Inhl inhaler Inhale 2 puffs every 4 (four) hours as needed. aspirin 81 mg oral enteric coated tablet Take 1 tablet (81 mg) by mouth once daily. Blood Pressure Monitor Kit by [facility].(Non-Drug; Combo Route) route once a day as needed. busPIRone (BUSPAR) 10 mg oral tablet Take 1 tablet (10 mg) by mouth 3 times a day as needed (anxiety). cyclobenzaprine (FLEXERIL) 10 mg oral tablet TAKE 1 TABLET BY MOUTH 3 TIMES DAILY NEEDED FOR MUSCLE SPASMS famotidine (PEPCID) 40 mg oral tablet Take 1 tablet (40 mg) by mouth twice a day. gabapentin (NEURONTIN) 600 mg oral tablet TAKE TWO TABLETS BY MOUTH THREE TIMES DAILY isosorbide mononitrate (IMDUR) 30 mg oral extended release tablet 24 HR Take 1 tablet (30 mg) by mouth once daily. linaCLOtide (LINZESS) 290 mcg oral capsule Take 1 capsule (290 mcg) by mouth once daily. 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 Seek emergency care immediately after use. nitroGLYCERIN (NITROSTAT) 0.4 mg sublingual tablet Take 1 tablet (0.4 mg) under the tongue every 5 (five) minutes as needed for chest pain for Up to 3 doses, call 911 if no relief. ondansetron (ZOFRAN) 4 mg oral ODT oxyCODONE-acetaminophen (PERCOCET) 10-325 mg oral tablet Take 1 tablet by mouth every four (4) to six (6) hours as needed (for chronic pain). Max 6 tabs/day. polyethylene glycol (MIRALAX) 17 gram oral powder Take 34 g by mouth three times a day. (Patient taking differently: Take 34 g by mouth once a day as needed.) psyllium husk (METAMUCIL) 0.52 gram oral capsule Take 1 capsule by mouth once daily. (Patient taking differently: Take 1 capsule by mouth once a day as needed.) QUEtiapine (SEROQUEL) 200 mg oral tablet Take 2 tablets (400 mg) by mouth at bedtime. rosuvastatin (CRESTOR) 40 mg oral tablet TAKE ONE TABLET BY MOUTH AT BEDTIME sildenafiL (VIAGRA) 100 mg oral tablet Take 1 tablet (100 mg) by mouth once a day as needed (ED). SUMAtriptan succinate (IMITREX) 100 mg oral tablet Take 1 tablet (100 mg) by mouth as directed. Mayrepeat after two hours. Maximum dose 200 mg/24 hours. traZODone (DESYREL) 50 mg oral tablet Take 3 tablets (150 mg) by mouth at bedtime as needed for sleep. Social History Tobacco Use Smoking status: Never Passive exposure: Never Smokeless tobacco: Never Vaping Use Vaping status: Never Used Substance Use Topics Alcohol use: No Drug use: No Health Care Directive?: No Pt declined further information Depression Screen: PHQ-2 (see phq-9 completed today if positive) Interest: Not at all Depression: Not at all PHQ2 Total: 0 Nutrition Diet Type: Regular Fall Assessment: Have you fallen in the last year?: No Do you feel unsteady when walking or standing? : No Are you worried about falling?: No Get up and Go test (seconds) performed only if one of the above answers is yes: (not recorded) Community dwelling frail older adults = > 14 sec associated with high fall risk Mental Status: Patient has concerns about his memory: No By direct observation, I do have concerns about his cognitive function. Physical Activities/ADLs: Hygiene: Independent, Feeding: Independent, Dressing: Independent, Meal Prep: Independent, Grocery Shopping: Independent, Money Management: Independent, Medication Management: Independent, Driving Status: Independent, Yard Work/Snow Removal: Independent Objective Nursing notes and vitals have been reviewed Vitals: 04/27/24 1219 04/27/24 1249 BP: (!) 140/80 134/74 Pulse: 87 Resp: 16 Temp: 97.5 ??F (36.4 ??C) Weight: 82.2 kg (181 lb 4.8 oz) Height: 5' 6 (1.676 m) Body mass index is 29.26 kg/m??. Vision: Have you had an eye exam in the past year: No Hearing: Do you have difficulty with your hearing?: Hearing Aid EXAM: No physical exam performed today for this Medicare wellness visit. Assessment/Plan: Fish Sofia Sr. was seen today for his Medicare Annual Wellness Visit. I have reviewed all of the above information and it is correct. Information on health care directives from [place] [employer] was provided. Additionally, he has been provided a handout on his personalized health advice, list of risk factors, and a screening schedule for recommended testing which we have discussed today(see Pt Instructions). Appropriate tests, referrals and the associated diagnoses have been ordered based on patient's history, risk factors and chronic disease. Ongoing or new health concerns were addressed outside of the Medicare Wellness Visit during visit today, please see separate documentation. Amy Hernandez MD * Amy Hernandez MD - 04/27/2024 12:30 PM CDT SUBJECTIVE: Fish Sofia SrSean is a 64 y.o. male who presents for medication follow-up. He is due for his Medicare wellness visit and is willing to do that today as well. He says his biggest issue is getting his Percocet on time. For some reason it was written as a max of 5 daily so he has to wait 33 days before he can get his prescription instead of the typical 30. The pharmacist told him to talk to me about that. He says he is usually needing 6 daily. He still has trouble with his left leg where he fractured the lower leg. At times it will cramp up and he will have to put his splint on and let it stretch out. This does not happen daily but if he does a lot of stairs or if he is under a car for a while he will notice it more. He is still using his Pepcid regularly and he finds that that helps. He s tarted using a natural supplement for testosterone that he buys over the Internet and says that he is now no longer having erectile dysfunction. He is not using testosterone injections. He stopped taking buspirone because he did not think it helped his anxiety and finds that walking helps when he gets stressed. He stopped taking metoprolol because his blood pressure was really low when he was hospitalized and he says he felt awful. He does not check his blood pressures at home but he feels well. He has lost 21 pounds on our scale and says he is trying to lose another 5 or 10. He feels like itis harder to lose weight. ROS: as noted in the HPI Current Outpatient Medications Medication Sig Dispense Refill acyclovir (ZOVIRAX) 400 mg oral tablet Take 1 tab p.o. twice daily 180 tablet 3 albuterol HFA (PROVENTIL;VENTOLIN HFA) 90 mcg/actuation Inhl inhaler Inhale 2 puffs every 4 (four) hours as needed. 36 g 3 aspirin 81 mg oral enteric coated tablet Take 1 tablet (81 mg) by mouth once daily. Blood Pressure Monitor Kit by [facility].(Non-Drug; Combo Route) route once a day as needed. 1 kit 0 cyclobenzaprine (FLEXERIL) 10 mg oral tablet TAKE 1 TABLET BY MOUTH 3 TIMES DAILY NEEDED FOR MUSCLE SPASMS 90 tablet 3 famotidine (PEPCID) 40 mg oral tablet Take 1 tablet (40 mg) by mouth twice a day. 180 tablet 3 gabapentin (NEURONTIN) 600 mg oral tablet TAKE TWO TABLETS BY MOUTH THREE TIMES DAILY 540 tablet 3 isosorbide mononitrate (IMDUR) 30 mg oral extended release tablet 24 HR Take 1 tablet (30 mg) by mouth once daily. 90 tablet 2 linaCLOtide (LINZESS) 290 mcg oral capsule Take 1 capsule (290 mcg) by mouth once daily. 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 Seek emergency care immediately after use. 2 each 0 nitroGLYCERIN (NITROSTAT) 0.4 mg sublingual tablet Take 1 tablet (0.4 mg) under the tongue every 5 (five) minutes as needed for chest pain for Up to 3 doses, call 911 if no relief. 25 tablet 0 ondansetron (ZOFRAN) 4 mg oral ODT oxyCODONE-acetaminophen (PERCOCET) 10-325 mg oral tablet Take 1 tablet by mouth every four (4) to six (6) hours as needed (for chronic pain). Max 6 tabs/day. 180 tablet 0 polyethylene glycol (MIRALAX) 17 gram oral powder Take 34 g by mouth three times a day. (Patient taking differently: Take 34 g by mouth once a day as needed.) 3060 g 3 psyllium husk (METAMUCIL) 0.52 gram oral capsule Take 1 capsule by mouth once daily. (Patient taking differently: Take 1 capsule by mouth once a day as needed.) 90 capsule 3 QUEtiapine (SEROQUEL) 200 mg oral tablet Take 2 tablets (400 mg) by mouth at bedtime. 180 tablet 3 rosuvastatin (CRESTOR) 40 mg oral tablet TAKE ONE TABLET BY MOUTH AT BEDTIME 90 tablet 3 sildenafiL (VIAGRA) 100 mg oral tablet Take 1 tablet (100 mg) by mouth once a day as needed (ED). 6tablet 11 SUMAtriptan succinate (IMITREX) 100 mg oral tablet Take 1 tablet (100 mg) by mouth as directed. Mayrepeat after two hours. Maximum dose 200 mg/24 hours. 9 tablet 0 traZODone (DESYREL) 50 mg oral tablet Take 3 tablets (150 mg) by mouth at bedtime as needed for sleep. 270 tablet 3 Allergies Allergen Reactions Tramadol Anaphylaxis and Rash Pt states, gives him seizures Pt states, gives him seizures Amitriptyline Confusion and Other Black outs. Black outs. Amlodipine Swelling, lips/tongue Other reaction(s): Edema, Swelling Citalopram Unknown Unable to Urinate. Unable to Urinate. Duloxetine Hcl Swelling, lips/tongue Swelling of lips and tongue Fluoxetine Other Due to be allergic to amitriptyline Due to be allergic to amitriptyline Hydrocodone-Acetaminophen Dermatitis, Nausea and Rash Nausea dermatitis Paroxetine Other Black outs Paxil [Paroxetine Hcl] Black Outs Acetaminophen Other reaction(s): hives, feels like choking PMH, Soc hx and FH are as noted in patient's chart. OBJECTIVE: Vitals: 04/27/24 1219 04/27/24 1249 BP: (!) 140/80 134/74 BP Cuff Site: Left arm BP Cuff Position: Sitting BP Cuff Size: Adult Pulse: 87 Resp: 16 Temp: 97.5 ??F (36.4 ??C) TempSrc: Tympanic SpO2: 95% Weight: 82.2 kg (181 lb 4.8 oz) Height: 5' 6 (1.676 m) GENERAL: WD/WN in NAD, average build HEAD: Normocephalic/Atraumatic EYES: PERRLA/EOMI, glasses NECK: supple, no adenopathy, no thyromegaly or bruits CHEST: normal CARDIOVASCULAR : Regular Rate and Rhythm, nl S1S2, peripheral pulses are normal LUNGS: clear to auscultation, no wheezes/rales/rhonchi MUSCULOSKELETAL: Left lower extremity with hardware palpable on the inner aspect of his ankle but not tender and there is no erythema. EXTREMITIES: No clubbing, cyanosis, or edema. NEUROLOGICAL : Muscle tone normal, awake, alert and oriented x 3, normal age appropriate gait with varus appearance, otherwise nonfocal exam SKIN : normal color, no rash Labs pending ASSESSMENT/PLAN: Fish was seen today for medication management and medicare wellness. Diagnoses and all orders for this visit: Encounter for Medicare annual wellness exam Gastroesophageal reflux disease, unspecified whether esophagitis present - famotidine (PEPCID) 40 mg oral tablet; Take 1 tablet (40 mg) by mouth twice a day. - CBC/DIFFERENTIAL OP HTN (hypertension), benign - COMPREHENSIVE METABOLIC PANEL 14 ([facility]) Screening for colon cancer - REFERRAL COLONOSCOPY: [facility] Dyslipidemia - LIPID PANEL ([facility]) - COMPREHENSIVE METABOLIC PANEL 14 ([facility]) Hypotestosteronemia in male - TESTOSTERONE, FREE & TOTAL ([facility]) Chronic bilateral low back pain with bilateral sciatica - oxyCODONE-acetaminophen (PERCOCET) 10-325 mg oral tablet; Take 1 tablet by mouth every four (4) to six (6) hours as needed (for chronic pain). Max 6 tabs/day. I did place a referral for a colonoscopy as he is due. He was advised that he does not qualify for Cologuard because he has had a history of polyps. We will check his testosterone levels on his supplement [id number]. He is no longer on injections. I did change the wording on his Percocet to say 6 tabs per day so the 180 tabs should be refillableevery 30 days. Prescription sent. BUSINESS LAWYER reviewed and no concerns noted. We will check his kidney and liver function test as well as his cholesterol and blood counts. His blood pressure was reasonable so he can stay off metoprolol at this time. I did refill Pepcid for GERD. Follow-up in 6 months for medication check. This note was dictated and completed with the aid of voice recognition software. Occasional inadvertent typographical errors may be present. documented in this encounter Plan of Treatment Scheduled Referrals Name Type Priority Associated Diagnoses Orde r Schedule REFERRAL COLONOSCOPY: [facility] Referral Routine Screening for colon cancer Ordered: 04/27/2024 documented as of this encounter Procedures Procedure Name Priority Date/Time Associated Diagnosis Comments TESTOSTERONE, FREE & TOTAL ([facility]) Routine 04/27/2024 1:03 PM CDT Hypotestosteronemia in male COMPREHENSIVE METABOLIC PANEL 14 ([facility]) Routine 04/27/2024 1:03 PM CDT HTN (hypertension), benign Dyslipidemia LIPID PANEL ([facility]) Routine 04/27/2024 1:03 PM CDT Dyslipidemia CBC/DIFFERENTIAL OP Routine 04/27/2024 1 :03 PM CDT Gastroesophageal reflux disease, unspecified whether esophagitis present documented in this encounter Results * (ABNORMAL) COMPREHENSIVE METABOLIC PANEL 14 ([facility]) (04/27/2024 1:03 PM CDT) [facility] Glucose ([facility]) 96 70 - 99 mg/dL 04/28/2024 8:12 AM CDT [facility] BUN ([facility]) 16 8 - 27 mg/dL 04/28/2024 8:12 AM CDT [facility] Creatinine ([facility]) 1.07 0.76 - 1.27 mg/dL 04/28/2024 8:12 AM CDT [facility] eGFR ([facility]) 77 >59 mL/min/1.7 3 04/28/2024 8:12 AM CDT [facility]/Creatinine Ratio ([facility]) 15 10 - 24 04/28/2024 8:12 AM CDT [facility] Sodium ([facility]) 141 134 - 144 mmol/L 04/28/2024 8:12 AM CDT [facility] Potassium ([facility]) 4.4 3.5 - 5.2 mmol/L 04/28/2024 8:12 AM CDT [facility] Chloride ([facility]) 100 96 - 106 mmol/L 04/28/2024 8:12 AM CDT [facility] Carbon Dioxide ([facility]) 22 20 - 29 mmol/L 04/28/2024 8:12 AM CDT [facility] Calcium ([facility]) 9.7 8.6 - 10.2 mg/dL 04/28/2024 8:12 AM CDT [facility] Protein Total ([facility]) 7.9 6.0 - 8.5 g/dL 04/28/2024 8:12 AM CDT [facility] Albumin ([facility]) 4.8 3.9 - 4.9 g/dL 04/28/2024 8:12 AM CDT [facility] Globulin Total ([facility]) 3.1 1.5 - 4.5 g/dL 04/28/2024 8:12 AM CDT [facility] Bilirubin Total ([facility]) 0.8 0.0 - 1.2 mg/dL 04/28/2024 8:12 AM CDT [facility] Alkaline Phosphatase ([facility]) 177(H) 44 - 121 IU/L 04/28/2024 8:12 AM CDT [facility] AST (SGOT) ([facility]) 52(H) 0 - 40 IU/L 04/28/2024 8:12 AM CDT [facility] ALT (SGPT) ([facility]) 54(H) 0 - 44 IU/L 04/28/2024 8:12 AM CDT [facility] A/G Ratio ([facility]) 1.5 04/28/2024 8:12 AM CDT [facility] Blood Venipuncture / Unknown 04/27/2024 1:03 PM CDT 04/27/2024 1:03 PM CDT [facility] - 04/28/2024 8:12 AM CDT Performed at: ??01 - [facility] [address] ??[id number] Health And Safety Technician: Robert Yepez MD, Phone: ??[phone] Amy Hernandez MD [facility] ORDERABLES Performing Organization Address [facility]/ZIP Co de Phone Number [facility] [address] [place] [address] * LIPID PANEL ([facility]) (04/27/2024 1:03 PM CDT) Cholesterol ([facility]) 133 100 - 199 mg/dL 04/28/2024 8:12 AM CDT [facility] Triglycerides ([facility]) 80 0 - 149 mg/dL 04/28/2024 8:12 AM CDT [facility] HDL Cholesterol ([facility]) 43 >39 mg/dL 04/28/2024 8:12 AM CDT [facility] VLDL Cholesterol Adam ([facility]) 16 5 - 40 mg/dL 04/28/2024 8:12 AM CDT [facility] LDL Cholesterol Calc - NIH ([facility]) 74 0 - 99 mg/dL 04/28/2024 8:12 AM CDT [facility] Blood Venipuncture / Unknown 04/27/2024 1:03 PM CDT 04/27/2024 1:03 PM CDT Narrative [facility] - 04/28/2024 8:12 AM CDT Performed at: ??01 - [facility] ??[id number] Health And Safety Technician: Robert Yepez MD, Phone: ??[phone] Amy Hernandez MD [facility] ORDERABLES Performing Organization Address [facility]/ZIP Co de Phone Number [facility] [address] [place] [address] * (ABNORMAL) TESTOSTERONE, FREE & TOTAL ([facility]) (04/27/2024 1:03 PM CDT) Testosterone ([facility]) 614 264 - 916 ng/dL 05/05/2024 2:08 PM CDT [facility] Comment: Adult male reference interval is based on a population of healthy nonobese males (BMI <30) between 19 and 39 years old. albino Rg.al. JCEM 2017,102;[id number]. PMID: [id number]. Free Testosterone Direct ([facility]) 2.5(L) 6.6 - 18.1 pg/mL 05/05/2024 2:08 PM CDT [facility] Comment: Results verified by repeat testing Blood Venipuncture / Unknown 04/27/2024 1:03 PM CDT 04/27/2024 1:03 PM CDT Narrative [facility] - 05/05/2024 2:08 PM CDT Performed at: ??01 - [facility] [address] ??[id number] Health And Safety Technician: Robert Yepez MD, Phone: ??[phone] Performed at: ??02 - [facility] [address] ??[id number] Health And Safety Technician: Sonu Hector MD, Phone: ??[phone] Amy Hernandez MD [facility] ORDERABLES [facility] [address] [place] [address] * CBC/DIFFERENTIAL OP (04/27/2024 1:03 PM CDT) WBC OP 6.3 4.3 - 10.8 K/UL 04/27/2024 1:12 PM CDT [facility] RBC OP 5.75 4.60 - 6.20 M/UL 04/27/2024 1:12 PM CDT [facility] HEMOGLOBIN OP 17.2 14.0 - 18.0 gm/dL 04/27/2024 1:12 PM CDT [facility] HEMATOCRIT OP 49.2 40.0 - 54.0 % 04/27/2024 1:12 PM CDT [facility] MCV OP 86 80 - 100 fL 04/27/2024 1:12 PM CDT [facility] MCH OP 29.9 27.0 - 33.0 pg 04/27/2024 1:12 PM CDT [facility] MCHC OP 35.0 33.0 - 36.0 gm/dL 04/27/2024 1:12 PM CDT [facility] RDW OP 12.1 11.5 - 14.5 % 04/27/2024 1:12 PM CDT [facility] PLATELET COUNT OP 230 150 - 400 K/UL 04/27/2024 1:12 PM CDT [facility] MPV OP 9.8 6.5 - 12.0 fL 04/27/2024 1:12 PM CDT [facility] PMN % OP 61.6 % 04/27/2024 1:12 PM CDT [facility] LYMPHOCYTE % OP 29.5 % 1:12 PM CDT [facility] MONOCYTE % OP 7.3 % 04/27/2024 1:12 PM CDT [facility] EOSINOPHIL % OP 1.1 % 1:12 PM CDT [facility] BASOPHIL % OP 0.5 % 04/27/2024 1:12 PM CDT [facility] PMN ABSOLUTE OP 3.87 1.80 - 7.80 K/uL 04/27/2024 1:12 PM CDT [facility] LYMPHOCYTE ABSOLUTE OP 1.85 1.00 - 4.00 K/uL 04/27/2024 1:12 PM CDT [facility] MONOCYTE ABSOLUTE OP 0.46 0.00 - 1.00 K/uL 04/27/2024 1:12 PM CDT [facility] EOSINOPHIL ABSOLUTE OP 0.07 0.00 - 0.45 K/uL 04/27/2024 1:12 PM CDT [facility] BASOPHIL ABSOLUTE OP 0.03 0.00 - 0.20 K/uL 04/27/2024 1:12 PM CDT [facility] Blood Venipuncture / Unknown 04/27/2024 1:03 PM CDT 04/27/2024 1:03 PM CDT Amy Hernandez MD HEMATOLOGY ORDERABLE [facility] [address] [place] [address] documented in this encounter Visit Diagnoses Diagnosis Encounter for Medicare annual wellness exam- Primary Routine general medical examination at a health care facility Gastroesophageal reflux disease, unspecified whether esophagitis present HTN (hypertension), benign Essential hypertension, benign Screening for colon cancer Special screening for malignant neoplasms, colon Dyslipidemia Other and unspecified hyperlipidemia Hypotestosteronemia in male Chronic bilateral low back pain with bilateral sciatica Opioid dependence on agonist therapy (HCC) Opioid type dependence, unspecified documented in this encounter Care Teams Automotive Finance Manager Relationship Specialty Start Date End Date Amy Hernandez MD [address] [place] [address] PCP - General 05/30/08 Freddy Rosa MD [address] [place] [address] PCP - Foxing Painter Cardiovascular Disease 05/04/20 documented as of this encounter
--- OUTSIDE RECORDS SUMMARY | 2024-06-13 23:33 | XMS_ITS | Referral Summary ---
Author Organization [facility] Address [address] [place] [address] Care Team Providers Care Diesel Technician Name Role Phone Amy Hernandez MD Primary Care Provider [phone] Freddy Rosa MD Unavailable Encounters Date Type Department Care Team Description 04/27/2024 Travel 04/27/2024 12:30 PM CDT Office Visit [facility] [address] [place] [phone] Amy Hernandez MD Encounter for Medicare annual wellness exam (Primary Dx); Gastroesophageal reflux disease, unspecified whether esophagitis present; HTN (hypertension), benign; Screening for colon cancer; Dyslipidemia; Hypotestosteronemia in male; Chronic bilateral low back pain with bilateral sciatica; Opioid dependence on agonist therapy (HCC) from Last 3 Months Allergies Active Allergy Reactions Criticality Noted Date Comments Acetaminophen Low 03/02/2019 Other reaction(s): hives, feels like choking Amitriptyline Confusion,Other 12/14/2010 Black outs. Black outs. Amlodipine Swelling, lips/tongue 06/14/2010 Other reaction(s): Edema, Swelling Citalopram Unknown 12/15/2014 Unable to Urinate. Unable to Urinate. Duloxetine Hcl Swelling, lips/tongue 01/17/2022 Swelling of lips and tongue Fluoxetine Other 01/17/2022 Due to be allergic to amitriptyline Due to be allergic to amitriptyline Hydrocodone-Acetaminop hen Dermatitis,Nausea, Rash 12/24/2005 Nausea dermatitis Paroxetine Other 01/24/2022 Black outs Paroxetine Hcl 10/13/2018 Black Outs Tramadol Anaphylaxis,Rash High 02/17/2017 Pt states, gives him seizures Pt states, gives him seizures Medications Medication Sig Dispensed Refills Start Date End Date Status psyllium husk (METAMUCIL) 0.52 gram oral capsuleIndications: Constipation, unspecified constipation type Take 1 capsule by mouth once daily. 90 capsule 3 01/07/2019 Active Additional Information Patient taking differently:1 capsule oralDAILY NEEDED, Reported on 01/30/2022 polyethylene glycol (MIRALAX) 17 gram oral powderIndications:C onstipation, unspecified constipation type Take 34 g by mouth three times a day. 3060 g 3 01/07/2019 Active Additional Information Patient taking differently:34 g oralDAILY NEEDED, Reported on 01/17/2022 SUMAtriptan succinate (IMITREX) 100 mg oral tabletIndications:M igraine with aura and without status migrainosus, not intractable Take 1 tablet (100 mg) by mouth as directed. May repeat after two hours. Maximum dose 200 mg/24 hours. 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 Seek emergency care immediately after use. 2 each 01/02/2021 Active ondansetron (ZOFRAN) 4 mg oral ODT 09/20/2021 Active aspirin 81 mg oral enteric coated tablet Take 1 tablet (81 mg) by mouth once daily. Active Blood Pressure Monitor KitIndications:HTN (hypertension), benign,Chest pain, unspecified type by Misc.(Non-Drug; Combo Route) route once a day as needed. 1 kit 03/14/2022 Active sildenafiL (VIAGRA) 100 mg oral tabletIndications:E rectile dysfunction, unspecified erectile dysfunction type Take 1 tablet (100 mg) by mouth once a day as needed (ED). 6 tablet 11 06/14/2022 Active isosorbide mononitrate (IMDUR) 30 mg oral extended release tablet 24 HRIndications:Chest pain, unspecified type Take 1 tablet (30 mg) by mouth once daily. 90 tablet 2 07/04/2022 Active busPIRone (BUSPAR) 10 mg oral tabletIndications:A nxiety disorder, unspecified type Take 1 tablet (10 mg) by mouth 3 times a day as needed (anxiety). 270 tablet 3 03/20/2023 Active acyclovir (ZOVIRAX) 400 mg oral tablet Take 1 tab p.o. twice daily 180 tablet 3 09/23/2023 Active albuterol HFA (PROVENTIL;VENTOLIN HFA) 90 mcg/actuation Inhl inhalerIndications: Wheezing Inhale 2 puffs every 4 (four) hours as needed. 36 g 3 09/23/2023 Active cyclobenzaprine (FLEXERIL) 10 mg oral tabletIndications:C hronic bilateral low back pain with bilateral sciatica TAKE 1 TABLET BY MOUTH 3 TIMES DAILY NEEDED FOR MUSCLE SPASMS 90 tablet 3 09/23/2023 Active gabapentin (NEURONTIN) 600 mg oral tabletIndications:C hronic bilateral low back pain with bilateral sciatica TAKE TWO TABLETS BY MOUTH THREE TIMES DAILY 540 tablet 3 09/23/2023 Active QUEtiapine (SEROQUEL) 200 mg oral tabletIndications:G eneralized anxiety disorder Take 2 tablets (400 mg) by mouth at bedtime. 180 tablet 3 09/23/2023 Active traZODone (DESYREL) 50 mg oral tabletIndications:I nsomnia, unspecified type Take 3 tablets (150 mg) by mouth at bedtime as needed for sleep. 270 tablet 3 09/23/2023 Active linaCLOtide (LINZESS) 290 mcg oral capsuleIndications: Chronic constipation Take 1 capsule (290 mcg) by mouth once daily. 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 25 tablet 10/21/2023 Active famotidine (PEPCID) 40 mg oral tabletIndications:G astroesophageal reflux disease, unspecified whether esophagitis present Take 1 tablet (40 mg) by mouth twice a day. 180 tablet 3 04/27/2024 Active oxyCODONE-acetamino phen (PERCOCET) 10-325 mg oral tabletIndications:C hronic bilateral low back pain with bilateral sciatica Take 1 tablet by mouth every four (4) to six (6) hours as needed (for chronic pain). Max 6 tabs/day. 180 tablet 06/11/2024 Active Hospital, Clinic, or Other Facility Administered Medication Ordered Dose Route Frequency Start Date End Date Status testosterone cypionate (DEPO-TESTOSTERONE) 200 mg/mL IM injection 200 mgIndications:Testosterone deficiency 200 mg IM DIRECTED 03/31/2023 Active Active Problems Problem Noted Date Diagnosed Date Right ureteral stone 01/02/2022 Acute pancreatitis, unspecif ied complication status, unspecified pancreatitis type 08/08/2020 History of substance use disorder 06/19/2020 History of colonic polyps 12/22/2018 Generalized anxiety disorder 05/25/2015 Overview: remeron made dizzy, zoloft gave GI upset/made feel goofy Depression, major 10/24/2014 Overview: lexapro did not help, zoloft caused stomach upset, remeron made dizzy Erectile dysfunction 07/03/2012 GERD (gastroesophageal reflux disease) 1 Overview: [facility]i endo 03/06/11 - neg Dyslipidemia 01/11/2011 Testosterone deficiency 07/28/2010 Chronic back pain 06/14/2010 Overview: Epidural 10/27, lidoderm no help HTN (hypertension), benign 06/14/2010 Immunizations Name Administration Dates Next Due Pfizer 12+ Yrs Bivalent COVID Vaccine 09/20/2022 Pfizer 12+ Yrs MONOVALENT COVID Vaccine 03/15/20 Pfizer 12+ Yrs MONOVALENT CO VID Vaccine (purple cap) 10/25/2021,03/12/2021,02/12/2021 Pfizer Comirnaty 12+ Yrs COV ID Vaccine [id number] 09/23/2023 Td 11/17/2003,09/01/2003 Td PF >7 yrs 09/01/2003 Tdap 12/24/2019,12/18/2012 Social History Tobacco Use Types Packs/Day Years [...] Mass Index 29.26 04/27/2024 12:19 PM CDT Plan of Treatment Not on file Procedures Procedure Name Priority Date/Time Associated Diagnosis Comments COMPREHENSIVE METABOLIC PANEL 14 ([facility]) Routine 04/27/2024 1:03 PM CDT HTN (hypertension), benign Dyslipidemia LIPID PANEL ([facility]) Routine 04/27/2024 1:03 PM CDT Dyslipidemia TESTOSTERONE, FREE & TOTAL ([facility]) Routine 04/27/2024 1:03 PM CDT Hypotestosteronemia in male CBC/DIFFERENTIAL OP Routine 04/27/2024 1 :03 PM CDT Gastroesophageal reflux disease, unspecified whether esophagitis present COLONOSCOPY Routine 02/02/2018 7:14 AM CDT HEP C ANTIBODY Routine 03/11/2016 1:44 PM CDT Need for hepatitis C screening test from Last 3 Months or Most Recently Relevant to Health Maintenance Results * (ABNORMAL) TESTOSTERONE, FREE & TOTAL ([facility]) (04/27/2024 1:03 PM CDT) Testosterone ([facility]) 614 264 - 916 ng/dL 05/05/2024 2:08 PM CDT [facility] Comment: Adult male reference interval is based on a population of healthy nonobese males (BMI <30) between 19 and 39 years old. Ifrah, et.al. JCEM 2017,102;9582-9000. PMID: [id number]. Free Testosterone Direct ([facility]) 2.5(L) 6.6 - 18.1 pg/mL 05/05/2024 2:08 PM CDT [facility] Comment: Results verified by repeat testing Blood Venipuncture / Unknown 04/27/2024 1:03 PM CDT 04/27/2024 1:03 PM CDT Narrative [facility] - 05/05/2024 2:08 PM CDT Performed at: ??01 - [address] ??[id number] Electrician Office: Robert Yepez MD, Phone: ??[phone] Performed at: ??02 - [address] ??[id number] Electrician Office: Sonu Hector MD, Phone: ??[phone] Amy Hernandez MD [facility] [address] [place] [address] * (ABNORMAL) COMPREHENSIVE METABOLIC PANEL 14 ([facility]) (04/27/2024 1:03 PM CDT) Glucose ([facility]) 96 70 - 99 mg/dL [...] 8:12 AM CDT Performed at: ??01 - [address] ??[id number] Electrician Office: Robert Yepez MD, Phone: ??[phone] Amy Hernandez MD [facility]LES [facility] [address] [place] [address] * LIPID PANEL ([facility]) (04/27/2024 1:03 PM [...] 8:12 AM CDT Performed at: ??01 - [facility] [address] [place], [place] ??[id number] Electrician Office: Robert Yepez MD, Phone: ??[phone] Amy Hernandez MD [facility] ORDER[facility]LES [facility] [address] [facility], [place] [address] * CBC/DIFFERENTIAL OP (04/27/2024 1:03 PM CDT) WBC OP 6.3 4.3 - 10.8 K/UL 04/27/2024 1:[address] [facility] RBC OP 5.75 4.60 - 6.20 M/UL 04/27/2024 1:12 PM CDT [facility] HEMOGLOBIN OP 17.2 14.0 - 18.0 gm/dL 04/27/2024 1:12 PM CDT [facility] HEMATOCRIT OP 49.2 40.0 - 54.0 % 04/27/2024 1:[address] [facility] MCV OP 86 80 - 100 fL 04/27/2024 1:12 PM CDT [facility] MCH OP 29.9 27.0 - 33.0 pg 04/27/2024 1:12 PM CDT [facility] MCHC OP 35.0 33.0 - 36.0 gm/dL 04/27/2024 1:12 PM CDT [facility] RDW OP 12.1 11.5 - 14.5 % 04/27/2024 1:12 PM CDT [facility] PLATELET COUNT OP 230 150 - 400 K/UL 04/27/2024 1:[address] [facility] MPV OP 9.8 6.5 - 12.0 fL 04/27/2024 1:[address] [facility] PMN % OP 61.6 % 04/27/2024 1:[address] [facility] LYMPHOCYTE % OP 29.5 % 1:12 PM [address] [facility] MONOCYTE % OP 7.3 % 04/27/2024 1:12 [address] [facility] EOSINOPHIL % OP 1.1 % 1:12 PM [address] [facility] BASOPHIL % OP 0.5 % 04/27/2024 1:[address] [facility] PMN ABSOLUTE OP 3.87 1.80 - 7.80 K/uL 04/27/2024 1:12 [address] [facility] LYMPHOCYTE ABSOLUTE OP 1.85 1.00 - 4.00 K/uL 04/27/2024 1:12 [address] [facility] MONOCYTE ABSOLUTE OP 0.46 0.00 - 1.00 K/uL 04/27/2024 1:12 PM [address] [facility] EOSINOPHIL ABSOLUTE OP 0.07 0.00 - 0.45 K/uL 04/27/2024 1:[address] [facility] BASOPHIL ABSOLUTE OP 0.03 0.00 - 0.20 K/uL 04/27/2024 1:[address] [facility] Blood Venipuncture / Unknown 04/27/2024 1:03 PM CDT 04/27/2024 1:03 PM CDT Amy Hernandez MD HEMATOLOGY ORDERABLE [facility] [address] [place] [address] * Colonoscopy (02/02/2018 7:14 AM CDT) 02/02/2018 7:14 AM CDT Narrative TEST - 02/02/2018 3:22 PM CDT [facility] Patient Name: Fish Sofia Procedure Date: 02/02/2018 7:14 AM Date of : 1960 Note Status: Finalized Attending MD: CALLUM AVILES MD Procedure: ? Colonoscopy Indications: ? Screening for colorectal malignant neoplasm Providers: ? CALLUM AVILES MD, NIKKI BRAGG, Twyla Bain RN, CALLUM ? MD STEFAN Requesting Provider: Medicines: ? Midazolam 3 mg IV, Fentanyl 100 micrograms IV, Glucagon 0.5 mg IV Complications: ? No immediate complications. Procedure: ? Pre-Anesthesia Assessment: ? - Mental Status Examination: alert and oriented. Airway Examination: ? normal oropharyngeal airway and neck mobility. Respiratory Examination: ? clear to auscultation. CV Examination: normal. Abdominal Examination: ? bowel sounds present, abdomen soft and non-tender, no masses or ? organomegaly noted. ? - ASA Grade Assessment: II - A patient with mild systemic disease. ? - After reviewing the risks and benefits, the patient was deemed in ? satisfactory condition to undergo the procedure. ? - The anesthesia plan was to use moderate sedation/analgesia (conscious ? sedation). ? - Immediately prior to administration of medications, the patient was ? re-assessed for adequacy to receive sedatives. ? - Sedation was administered by an endoscopy nurse. The sedation level ? attained was moderate. ? - The heart rate, respiratory rate, oxygen saturations, blood pressure, ? adequacy of pulmonary ventilation, and response to care were monitored ? throughout the procedure. ? - The physical status of the patient was re-assessed after the procedure. ? Informed consent was obtained after discussion of the procedure ? including its risks of perforation, bleeding, potential need for ? surgery, potential complications associated with conscious sedation, and ? possibility of an incomplete procedure or missed lesion. The scope was ? passed under direct vision. Throughout the procedure, the patient's ? blood pressure, pulse, and oxygen saturations were monitored ? continuously. The Colonoscope was introduced through the and advanced ? to. The colonoscopy was performed without difficulty. The patient ? tolerated the procedure well. The quality of the bowel preparation was ? good. The Colonoscope was introduced through the anus and advanced to ? the terminal ileum. Findings: ? The perianal and digital rectal examinations were normal. ? A 5 mm polyp was found in the ascending colon. The polyp was sessile. ? The polyp was removed with a hot snare. Resection and retrieval were ? complete. Verification of patient identification for the specimen was ? done. Estimated blood loss was minimal. ? Scattered small-mouthed diverticula were found in the sigmoid colon and ? descending colon. ? The terminal ileum appeared normal. ? The exam was otherwise without abnormality. Impression: ? - One 5 mm polyp in the ascending colon, removed with a hot snare. ? Resected and retrieved. ? - Diverticulosis in the sigmoid colon and in the descending colon. ? - The examined portion of the ileum was normal. ? - The examination was otherwise normal. Recommendation: ? - Repeat colonoscopy in 5 years for surveillance. Procedure Code(s): ? --- Professional --- ? 08896, Colonoscopy, flexible; with removal of tumor(s), polyp(s), or ? other lesion(s) by snare technique Diagnosis Code(s): ? --- Professional --- ? Z12.11, Encounter for screening for malignant neoplasm of colon ? D12.2, Benign neoplasm of ascending colon ? K57.30, Diverticulosis of large intestine without perforation or abscess ? without bleeding CPT copyright 2016 [employer]. All rights reserved. The codes documented in this report are preliminary and upon customer advocate review may be revised to meet current compliance requirements. Callum AVILES MD 02/02/2018 3:21:56 PM Number of Addenda: 0 Note Initiated On: 02/02/2018 7:14 AM ? [address] ? [place] [address] Procedure Note Callum Aviles MD - 02/02/2018 [facility] Patient Name: Fish Sofia Procedure Date: 02/02/2018 7:14 AM Date of : 1960 Note Status: Finalized Attending MD: CALLUM AVILES MD Procedure: Colonoscopy Indications: Screening for colorectal malignant neoplasm Providers: CALLUM AVILES MD, Twyla AGUIRRE RN, CALLUM AVILES MD Requesting Provider: Medicines: Midazolam 3 mg IV, Fentanyl 100 micrograms IV, Glucagon 0.5 mg IV Complications: No immediate complications. Procedure: Pre-Anesthesia Assessment: - Mental Status Examination: alert and oriented. Airway Examination: normal oropharyngeal airway and neck mobility. RespiratoryExamination: clear to auscultation. CV Examination: normal. Abdominal Examination: bowel sounds present, abdomen soft and non-tender, no masses or organomegaly noted. - ASA Grade Assessment: II - A patient with mild systemic disease. - After reviewing the risks and benefits, the patient was deemed in satisfactory condition to undergo the procedure. - The anesthesia plan was to use moderate sedation/analgesia(conscious sedation). - Immediately prior to administration of medications, the patient was re-assessed for adequacy to receive sedatives. - Sedation was administered by an endoscopy nurse. The sedation level attained was moderate. - The heart rate, respiratory rate, oxygen saturations, bloodpressure, adequacy of pulmonary ventilation, and response to care weremonitored throughout the procedure. - The physical status of the patient was re-assessed after theprocedure. Informed consent was obtained after discussion of the procedure including its risks of perforation, bleeding, potential need for surgery, potential complications associated with conscious sedation,and possibility of an incomplete procedure or missed lesion. The scopewas passed under direct vision. Throughout the procedure, the patient's blood pressure, pulse, and oxygen saturations were monitored continuously. The Colonoscope was introduced through the and advanced to. The colonoscopy was performed without difficulty. The patient tolerated the procedure well. The quality of the bowel preparationwas good. The Colonoscope was introduced through the anus and advanced to the terminal ileum. Findings: The perianal and digital rectal examinations were normal. A 5 mm polyp was found in the ascending colon. The polyp was sessile. The polyp was removed with a hot snare. Resection and retrieval were complete. Verification of patient identification for the specimen was done. Estimated blood loss was minimal. Scattered small-mouthed diverticula were found in the sigmoid colonand descending colon. The terminal ileum appeared normal. The exam was otherwise without abnormality. Impression: - One 5 mm polyp in the ascending colon, removed with a hot snare. Resected and retrieved. - Diverticulosis in the sigmoid colon and in the descending colon. - The examined portion of the ileum was normal. - The examination was otherwise normal. Recommendation: - Repeat colonoscopy in 5 years for surveillance. Procedure Code(s): --- Professional --- 23708, Colonoscopy, flexible; with removal of tumor(s), polyp(s), or other lesion(s) by snare technique Diagnosis Code(s): --- Professional --- Z12.11, Encounter for screening for malignant neoplasm of colon D12.2, Benign neoplasm of ascending colon K57.30, Diverticulosis of large intestine without perforation orabscess without bleeding CPT copyright 2016 [employer]. All rights reserved. The codes documented in this report are preliminary and upon customer advocate reviewmay be revised to meet current compliance requirements. Callum AVILES MD 02/02/2018 3:21:56 PM Number of Addenda: 0 Note Initiated On: 02/02/2018 7:14 AM [address] [place] [address] Callum Aviles MD PROCEDURE ORDERABL E Performing Organization Address [facility] de Phone Number TEST * HEP C ANTIBODY (03/11/2016 1:44 PM CDT) Hepatitis C Antibody Non-Reacti ve Non-Reacti ve 03/11/2016 5:17 PM CDT [facility] Blood Venipuncture / Unknown 03/11/2016 1:44 PM CDT 03/11/2016 1:44 PM CDT Amy Hernandez MD IMMUNOLOGY ORDERABLE Performing Organization Address [facility] Co de Phone Number [facility] [address] [place] [address] from Last 3 Months or Most Recently Relevant to Health Maintenance Administered Medications Advance Directives For more information, please contact: [phone] * Full Code (Latest Code Status on File) Date Activated Date Inactivated Comments 06/21/2012 8:48 PM 06/24/2012 8:12 PM Question Answer Comments How was code status determined? Physician determ ined Care Teams Diesel Technician Relationship Specialty Start Date End Date Amy Hernandez MD [address] [place] [address] PCP - General 05/30/08 Freddy Rosa MD [address] [place] [address] PCP - Staff Antisubmarine Officer Cardiovascular Disease 05/04/20
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
--- OUTSIDE RECORDS SUMMARY | 2024-06-13 23:33 | XMS_ITS | Encounter Summary ---
Author Organization [facility] Address [address] [place] [address] Care Team Providers Care Milk Treater Name Role Phone Amy Hernandez MD Primary Care Provider [phone] Freddy Rosa MD Unavailable Encounter Details Date Type Department Care Team (Latest Contact Info) Description 04/27/2024 Travel Social History Tobacco Use Types Packs/Day Years Used Date Smoking Tobacco: Never Passive Smoke Exposure: Never Smokeless Tobacco: Never Alcohol Use Standard Drinks/Week Comments No 0 (1 standard drink = 0.6 oz pur e alcohol) PHQ-2 Answer Date Recorded PHQ2 Total 0 04/27/2024 Sex and Gender Information Value Date Recorded Sex Assigned at Not on file Gender Identity Not on file Sexual Orientation Not on file documented as of this encounter Plan of Treatment Not on file documented as of this encounter Visit Diagnoses Not on filedocumented in this encounter Care Teams Milk Treater Relationship Specialty Start Date End Date Amy Hernandez MD [address] [place] [id number] PCP - General 05/30/08 Freddy Rosa MD [address] [place] [address] PCP - Body Man Cardiovascular Disease 05/04/20 documented as of this encounter
--- OUTSIDE RECORDS SUMMARY | 2024-06-13 23:33 | XMS_ITS | Encounter Summary ---
Author Organization [place] Address [address] [place] [address] Care Team Providers Care Distance Learning Administrator Name Role Phone Alejandro Cochran PA-C Primary Care Provider [phone] Zackery Clark MD Primary Care Provide r Kanwal Martinez MD Unavailable Malathi Shelton MD Unavailable [phone] Patti Gannon AIRWAYS OPERATIONS SPECIALIST Unavailable [phone] Radha Leal MD Unavailable Hilary Negrete RN Unavailable Zackery Clark MD Unavailable Zackery Clark MD Unavailable Shi Hernandez MD Primary Care Provider Denilson Alfonso Chi OD Unavailable [phone] Tierra Cid SWEEP MOLDER SUPERVISOR DOPING Unavailable Azeem Rowan OD Unavailable [phone] Reason for Visit * Reason Onset Date Comments Nurse Advice Line 04/09/2012 Encounter Details Date Type Department Care Team (Late st Contact Info) Description 04/09/2012 Telephone [facility] DEPT FOR [facility] Alejandro Cochran PA-C XXX NO INFO FOUND 12/12/2022 [place] [address] Nurse Advice Line Social History Tobacco Use Types Packs/Day Years [...] on filedocumented in this encounter Care Teams Distance Learning Administrator Relationship Specialty Start Date End Date Alejandro Cochran, MARBELLAC PCP - General 10/09/09 01/04/16 Zackery Clark MD PCP - General Family Practice 01/05/16 04/11/19 Zackery Clark MD [address] [address] PCP - Assigned PCP 08/17/17 01/19/19 Shi Hernandez MD [address] [place], [place] [address] PCP - General Family Practice 04/12/19 Kanwal Martinez MD [address] [address] Ophthalmology 02/05/16 Malathi Shelton MD 420 [facility] 493 [place], [place] [address] Ophthalmology 02/08/16 Patti Gannon, AIRWAYS OPERATIONS SPECIALIST Director Of Recruitment 08/19/17 08/31/17 Radha Leal MD [facility] [address] [facility] [id number] [place] [address] Resident Student in organized health care education/training program 01/07/18 05/17/19 Hilary Negrete, ANDREE Nurse Coordinator Neurology 01/28/18 05/10/19 Zackery Clark MD [address] [id number] Assigned PCP 08/17/17 10/30/19 Denilson Alfonso Chi, OD 9 [place] [address] Optometry 07/26/19 Tierra Cid APRN SUPERVISOR DOPING [facility] [address] [place] [address] Assigned PCP 10/31/19 11/01/22 Azeem Rowan OD [address] [place] [address] Assigned Surgical Provider 09/08/20 08/04/21 documented as of this encounter
--- OUTSIDE RECORDS SUMMARY | 2024-06-13 23:33 | XMS_ITS | Encounter Summary ---
Author Organization [place] Address [address] [facility] [place] [address] Care Team Providers Care Mill Dresser Name Role Phone Zackery Clark MD Primary Care Provide r Kanwal Martinez MD Unavailable Malathi Shelton MD Unavailable [phone] Radha Leal MD Unavailable Hilary Negrete RN Unavailable [phone] Zackery Clark MD Unavailable [phone] Zackery Clark MD Unavailable Shi Hernandez MD Primary Care Provider [phone] Denilson Alfonso Chi OD Unavailable [phone] Tierra Cid APRN IT PROJECT MANAGER Unavailable Azeem Rowan OD Unavailable [phone] Reason for Visit * Reason Onset Date Comments MH/CD Inpatient 09/01/2017 Encounter Details Date Type Department Care Team ([facility] st Contact Info) Description 09/01/2017 Telephone [facility] Behavioral Health Intake [address] [place] [address] Generic, Behavioral Intake, MH/CD Inpatient Social [...] encounter Miscellaneous Notes * Telephone Encounter - Nolberto Shahhan - 09/01/2017 9:13 PM CDT S: [facility] called to place a 57 y/o male for inpatient mental health treatment. B: Pt was BIB self due to worsening depression and SI with a plan to jump [place] a bridge onto a highway. Pt reports his recently left him. Pt reports feeling depressed, hopeless and helpless. Pt denies drugs and alcohol use. Pt has chronic back pain but is otherwise medically cleared. Pt is voluntary. A: Refer to inpatient unit for mental health treatment. R: Admit to 3B under Dr. Cook. Approved by Dr. Kohli. documented in this encounter Plan of Treatment Not on file documented as of this encounter Visit Diagnoses Not on filedocumented in this encounter Additional Health Concerns Assessment Noted Time PHQ-9 Depression Total Score: 017 3:02 PM CDT documented as of this encounter Care Teams Mill Dresser Relationship Specialty Start Date End Date Zackery Clark MD PCP - General Family Practice 01/05/16 04/11/19 Zackery Clark MD [address] [facility] 200 [place] [address] PCP - Assigned PCP 08/17/17 01/19/19 Shi Hernandez MD [address] [place] [address] PCP - General Family Practice 04/12/19 Kanwal Martinez MD [address] [address] Ophthalmology 02/05/16 Malathi Shelton MD [address] [place] [address] 493 [place] [address] Ophthalmology 02/08/16 Radha Leal MD [facility] 9[address] [facility] [id number] [place] [address] Resident Student in organized health care education/training program 01/07/18 05/17/19 Hilary Negrete RN Nurse Coordinator Neurology 01/28/18 05/10/19 Zackery Clark MD [address] [facility] 200 [place] [address] Assigned PCP 08/17/17 10/30/19 Denilson Alfonso Chi, OD [address] [place] [address] Optometry 07/26/19 Tierra Cid APRN IT PROJECT MANAGER [facility] [address] [place] [address] Assigned PCP 10/31/19 11/01/22 Azeem Rowan OD [address] [place] [address] Assigned Surgical Provider 09/08/20 08/04/21 documented as of this encounter
--- OUTSIDE RECORDS SUMMARY | 2024-06-13 23:33 | XMS_ITS | Clinical Summary ---
Author Organization [facility] Address [address] [place] [address] Care Team Providers Care Vehicle Delivery Worker Name Role Phone Amy Hernandez MD Primary Care Provider Freddy Rosa MD Unavailable Allergies Active Allergy Reactions Criticality Noted Date [...] Nolberto Santoro MD [facility] [phone] Fax 1 each 11/29/2020 Active naloxone (NARCAN) 4 mg/actuation Nasal [place] Instill 1 spray (4 mg) into one nostril as needed. Seek emergency care immediately after use. 2 each 01/02/2021 Active ondansetron (ZOFRAN) 4 mg oral ODT 09/20/2021 Active aspirin 81 mg oral enteric coated tablet Take 1 tablet (81 mg) by mouth once daily. 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) Take 1 [...] lidoderm no help HTN (hypertension), benign 06/14/2010 Encounters Date Type Department Care Team Description 04/27/2024 12:30 PM CDT Office Visit [address] [address] Amy Hernandez MD Encounter for Medicare annual wellness exam (Primary Dx); Gastroesophageal reflux disease, unspecified whether esophagitis present; HTN (hypertension), benign; Screening for colon cancer; Dyslipidemia; Hypotestosteronemia in male; Chronic bilateral low back pain with bilateral sciatica; Opioid dependence on agonist therapy (HCC) 04/27/2024 Travel from Last 3 Months Immunizations Name Administration Dates Next Due Pfizer 12+ Yrs Bivalent COVID Vaccine 09/20/2022 Pfizer 12+ Yrs MONOVALENT COVID Vaccine 03/15/20 Pfizer 12+ Yrs MONOVALENT CO VID Vaccine (purple cap) 10/25/2021,03/12/2021,02/12/2021 Pfizer Comirnaty 12+ Yrs COV ID Vaccine 09/23/2023 Td 11/17/2003,09/01/2003 Td PF >7 yrs 09/01/2003 Tdap 12/24/2019,12/18/2012 Family History Medical History Relation Comments Arthritis Brother 3 RA Arthritis Brother 4 Coronary Heart Disease Father Diabetes Father Thyroid Disease Father Heart Failure Mother Other Disease Mother SLE Stroke Mother Heart Disease Paternal Aunt Lung Cancer Paternal Grandfather Heart Disease Paternal Uncle Thyroid Disease Sister 3 Had her thyroid removed Relation Status Comments Brother 1 Alive Brother 2 Alive Brother 3 Brother 4 Father OR Mother CVA Paternal Aunt Paternal Grandfather Paternal Uncle Sister 1 Alive Sister 2 Alive Sister 3 Social History Tobacco Use Types Packs/Day Years [...] 04/27/2024 12:19 PM CDT Plan of Treatment Health Maintenance Due Date Last Done Comments Colonoscopy 12/18/2023 12/18/2018 (Prev iously completed), 02/02/2018, 04/09/2010 Depression Follow-Up (PHQ-9) 09/23/2024 09/23/2023 Medicare Wellness Visit 04/27/2025 04/27/20, 03/21/2023, 10/25/2021, Additional history exists Yearly Review of HCD 04/27/2025 04/27/2024, 03/21/2023, 10/25/2021, Additional history exists Diabetes Screening 04/27/2027 04/27/2024, 1 11/23/2022, 03/21/2023, Additional history exists Adult Tetanus Booster 12/24/2029 12/24/2019 , 12/18/2012, 11/17/2003, Additional history exists Hepatitis C Screening Completed 03/11/2016 Influenza Vaccine Discontinued 12/11/2017 (De clined), 01/27/2017 (Declined), 10/24/2014 (Declined), Additional history exists Zoster Vaccine Discontinued 09/14/2020 (Declined) COVID-19 Vaccine Discontinued 09/23/2023, 02/2022, 03/15/2022, Additional history exists Pneumococcal 65+ Discontinued RSV 60+ Yrs Discontinued Procedures Procedure Name Priority Date/Time Associated Diagnosis [...] and 38 years old. Ifrah, et.al. JCEM 2017,102;[id number]. PMID: [id number]. Free Testosterone Direct ([facility]) 2.5(L) 6.6 - 18.1 pg/mL 05/05/2024 2:08 PM CDT [facility] Comment: Results verified by repeat testing Blood Venipuncture / Unknown 04/27/2024 1:03 PM CDT 04/27/2024 1:03 PM CDT Narrative [facility] - 05/05/2024 2:08 PM CDT Performed at: ??01 - [address] ??[id number] [place] P[place]eman: Robert Yepez MD, Phone: ??[phone] Performed at: ??02 - [facility] ??[id number] [place] Pipeman: Sonu Hector MD, Phone: ??[phone] Amy Hernandez MD [facility] [address] [place] [address] * (ABNORMAL) COMPREHENSIVE METABOLIC PANEL 14 ([facility]) (04/27/2024 1:03 PM CDT) Pathologist [facility] Glucose ([facility]) 96 70 - 99 mg/dL [...] AM CDT Performed at: ??01 - [facility] [address] ??[id number] [place] Pipeman: Robert Yepez MD, Phone: ??[phone] Amy Hernandez MD [facility]LES Performing Organization Address [facility]/ZIP Co de Phone Number [facility] [address] [place] [address] * LIPID PANEL ([facility]) (04/27/2024 1:03 PM [...] AM CDT Performed at: ??01 - [facility] [address] ??[id number] [place] Pipeman: Robert Yepez MD, Phone: ??[phone] Amy Hernandez MD [facility] ORDERABLES Performing Organization Address City/[facility]/ZIP Co de Phone Number [facility] [address] [place] [address] * CBC/DIFFERENTIAL OP (04/27/2024 1:03 PM CDT) WBC OP 6.3 4.3 - 10.8 K/UL 04/27/2024 1:12 PM [address] [facility] RBC OP 5.75 4.60 - 6.20 M/UL 04/27/2024 1:12 PM CDT [facility] HEMOGLOBIN OP 17.2 14.0 - 18.0 gm/dL 04/27/2024 1:12 PM CDT [facility] HEMATOCRIT OP 49.2 40.0 - 54.0 % 04/27/2024 1:12 PM CDT [facility] MCV OP 86 80 - 100 fL 04/27/2024 1:12 PM CDT [facility] MCH OP 29.9 27.0 - 33.0 pg 04/27/2024 1:12 PM CDT [facility] MCHC OP 35.0 33.0 - 36.0 gm/dL 04/27/2024 1:12 PM CDT [facility] RDW OP 12.1 11.5 - 14.5 % 04/27/2024 1:12 PM CDT [facility] PLATELET COUNT OP 230 150 - 400 K/UL 04/27/2024 1:12 PM CDT [facility] MPV OP 9.8 6.5 - 12.0 fL 04/27/2024 1:12 PM CDT [facility] PMN % OP 61.6 % 04/27/2024 1:12 PM CDT [facility] LYMPHOCYTE % OP 29.5 % 1:12 PM CDT [facility] MONOCYTE % OP 7.3 % 04/27/2024 1:12 PM CDT [facility] EOSINOPHIL % OP 1.1 % 4 1:12 PM CDT [facility] BASOPHIL % OP 0.5 % 04/27/2024 1:12 PM CDT [facility] PMN ABSOLUTE OP 3.87 1.80 - 7.80 K/uL 04/27/2024 1:12 PM CDT [facility] LYMPHOCYTE ABSOLUTE OP 1.85 1.00 - 4.00 K/uL 04/27/2024 1:12 PM CDT [facility] MONOCYTE ABSOLUTE OP 0.46 0.00 - 1.00 K/uL 04/27/2024 1:12 PM CDT [facility] EOSINOPHIL ABSOLUTE OP 0.07 0.00 - 0.45 K/uL 04/27/2024 1:12 PM CDT [facility] BASOPHIL ABSOLUTE OP 0.03 0.00 - 0.20 K/uL 04/27/2024 1:12 PM CDT [facility] Blood Venipuncture / Unknown 04/27/2024 1:03 PM CDT 04/27/2024 1:03 PM CDT Amy Hernandez MD HEMATOLOGY ORDERABLE [facility] [address] [place] [address] * Colonoscopy (02/02/2018 7:14 AM CDT) 02/02/2018 7:14 AM CDT Narrative TEST - 02/02/2018 3:22 PM CDT [facility] Patient Name: Fish Sofia Procedure Date: 02/02/2018 [...] Procedure Code(s): ? --- Professional --- ? 77240, Colonoscopy, flexible; with removal of tumor(s), polyp(s), or ? other lesion(s) by snare technique Diagnosis Code(s): ? --- Professional --- ? Z12.11, Encounter for screening for malignant neoplasm of colon ? D12.2, Benign neoplasm of ascending colon ? K57.30, Diverticulosis of large intestine without perforation or abscess ? without bleeding CPT copyright 2016 [employer]. All rights reserved. The codes documented in this report are preliminary and upon inpatient coder review may be revised to meet current compliance requirements. Callum AVILES MD 02/02/2018 3:21:56 PM Number of Addenda: 0 Note Initiated On: 02/02/2018 7:14 AM ? [address] ? [place] [address] Procedure Note Callum Aviles MD - 02/02/2018 [facility] Patient Name: Fish Sofia Procedure Date: 02/02/2018 [...] for surveillance. Procedure Code(s): --- Professional --- 87805, Colonoscopy, flexible; with removal of tumor(s), polyp(s), or other lesion(s) by snare technique Diagnosis Code(s): --- Professional --- Z12.11, Encounter for screening for malignant neoplasm of colon D12.2, Benign neoplasm of ascending colon K57.30, Diverticulosis of large intestine without perforation orabscess without bleeding CPT copyright 2016 [employer]. All rights reserved. The codes documented in this report are preliminary and upon inpatient coder reviewmay be revised to meet current compliance requirements. Callum AVILES MD 02/02/2018 3:21:56 PM Number of Addenda: 0 Note Initiated On: 02/02/2018 7:14 AM [address] [place] [address] Callum Aviles MD PROCEDURE ORDERABL E Performing Organization Address [facility] de Phone Number TEST * HEP C ANTIBODY (03/11/2016 1:44 PM CDT) Hepatitis C Antibody Non-Reacti ve Non-Reacti ve 03/11/2016 5:17 PM CDT [facility] Blood Venipuncture / Unknown 03/11/2016 1:44 PM CDT 03/11/2016 1:44 PM CDT Amy Hernandez MD IMMUNOLOGY ORDERABLE Performing Organization Address [facility] de Phone Number [facility] [address] [place] [address] from Last 3 Months or Most Recently Relevant to Health Maintenance Advance Directives For more information, please contact: [phone] * Full Code (Latest Code Status on File) Date Activated Date Inactivated Comments 06/21/2012 8:48 PM 06/24/2012 8:12 PM Question Answer Comments How was code status determined? Physician determ [facility] Care Teams Vehicle Delivery Worker Relationship Specialty Start Date End Date Amy Hernandez MD [address] [place] [address] PCP - General 05/30/08 Freddy Rosa MD [address] [place] [address] PCP - Mortgage Closing Clerk Cardiovascular Disease 05/04/20
--- OUTSIDE RECORDS SUMMARY | 2024-06-13 23:33 | XMS_ITS | Encounter Summary ---
Author Organization [place] Address [address] [facility] [address] Care Team Providers Care Soft Crab Shedder Name Role Phone Kanwal Martinez MD Unavailable Malathi Shelton MD Unavailable [phone] Shi Hernandez MD Primary Care Provider + [phone] Denilson Alfonso Chi OD Unavailable [phone] Tierra Cid APRN FAMILY INDEPENDENCE CASE MANAGER Unavailable Azeem Rowan OD Unavailable [phone] Reason for Visit * Reason Onset Date Comments Panel Management 11/04/2019 Update ACT Encounter Details Date Type Department Care Team (Late st Contact Info) Description 11/04/[address] [address] Tierra Cid, USMAN FAMILY INDEPENDENCE CASE MANAGER [facility] [address] [place], [place] [id number] Panel Management (Update ACT) Social History Tobacco Use Types Packs/Day Years Used Date Smoking Tobacco: Never Smokeless Tobacco: Never Alcohol Use Standard Drinks/Week Comments No 0 (1 standard drink = 0.6 oz pur e alcohol) dry since 1990 PHQ-2 Answer Date Recorded PHQ-2 Score 0 10/26/2019 Sex and Gender Information Value Date Recorded Sex Assigned at Not on file Gender Identity Not on file Sexual Orientation Not on file documented as of this encounter Miscellaneous Notes * Telephone Encounter - Alyson Hackett CMA - 11/04/2019 10:22 AM CST Panel Management Review Patient has the following on his problem list: Asthma review ACT Total Scores 10/26/2019 ACT TOTAL SCORE - ASTHMA ER VISITS - ASTHMA HOSPITALIZATIONS - ACT TOTAL SCORE (Goal Greater than or Equal to 20) 16 In the past 12 months, how many times did you visit the emergency room for your asthma without being admitted to the hospital? 0 In the past 12 months, how many times were you hospitalized overnight because of your asthma? 0 1. Is Asthma diagnosis on the Problem List? Yes 2. Is Asthma listed on Health Maintenance? Yes 3. Patient is due for: ACT Composite cancer screening Chart review shows that this patient is due/due soon for the following None Summary: Patient is due/failing the following: ACT/ failed ACT at 10/26/19 regi't Action needed: Patient needs to do ACT. Type of outreach: will reach out in 1month Questions for provider review: None ELENA Mooney Chart routed to ELENA Mooney STIGATIVE AGENT documented in this encounter Plan of Treatment Not on file documented as of this encounter Visit Diagnoses Not on filedocumented in this encounter Additional Health Concerns Assessment Noted Time PHQ-9 Depression Total Score: 3 10/26/20 19 1:37 PM INVESTIGATIVE AGENT documented as of this encounter Care Teams Soft Crab Shedder Relationship Specialty Start Date End Date Shi Hernandez MD [address] [place], [place] [address] PCP - General Family Practice 04/12/19 Kanwal Martinez MD [address] [id number] Ophthalmology 02/05/16 Malathi Shelton MD [address] [id number] Ophthalmology 02/08/16 Denilson Alfonso Chi, OD [address] [place] [address] Optometry 07/26/19 Tierra Cid APRN FAMILY INDEPENDENCE CASE MANAGER [facility] [address] [place] [address] Assigned PCP 10/31/19 11/01/22 Azeem Rowan, OD [address] [place] [address] Assigned Surgical Provider 09/08/20 08/04/21 documented as of this encounter
--- OUTSIDE RECORDS SUMMARY | 2024-06-13 23:33 | XMS_ITS | Encounter Summary ---
Author Organization [place] Address [address] [place] [address] Care Team Providers Care Septic Tank Installer Name Role Phone Alejandro Cochran PA-C Primary Care Provider [phone] None Primary Care Provider Unavailabl e Zackery Clark MD Primary Care Provide r Kanwal Martinez MD Unavailable Malathi Shelton MD Unavailable [phone] Patti Gannon REMITTANCE CLERK Unavailable [phone] Radha Leal MD Unavailable [phone] Hilary Negrete RN Unavailable [phone] Zackery Clark MD Unavailable Zackery Clark MD Unavailable Shi Hernandez MD Primary Care Provider + [phone] Denilson Alfonso Chi OD Unavailable [phone] Tierra Cid SHIFT SUPERVISOR MELTING METAL TRADES INSTRUCTOR Unavailable Azeem Rowan OD Unavailable [phone] Reason for Visit * Reason Onset Date Comments Medication Question 08/30/2009 Encounter Details Date Type Department Care Team (Late st Contact Info) Description 08/30/[address] [address] Nolberto Lundberg MD [facility] [address] [facility] [place] [address] Medication Question Social History Tobacco Use Types Packs/Day Years Used Date Smoking Tobacco: Never Alcohol Use Standard Drinks/Week Comments No 0 (1 standard drink = 0.6 oz pur e alcohol) dry since 1990 Sex and Gender Information Value Date Recorded Sex Assigned at Not on file Gender Identity Not on file Sexual Orientation Not on file documented as of this encounter Miscellaneous Notes * Telephone Encounter - Hortencia Schmidt - 09/01/2009 5:40 PM CDT Pt states he was infomred already. Hortencia Schmidt RN * Telephone Encounter - Nolberto Lundberg - 09/01/2009 2:57 PM CDT No. That is why we have the pain contract. Can try tylenol and ibuprofen or aleve until due to pickup script. Nolberto Lundberg MD * Telephone Encounter - Mallorie Harper - 09/01/2009 9:04 AM CDT Spoke to pt- He states that he ran out of Percocet early. 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 He states he has been waking in the night with severe leg and back pain and taking Percocet to help with the pain. He usually takes 2 Percocet at 6am,noon, and 8pm. He took his last dose on Friday08/29/09. He states he woke up on Fri and was not feeling well. He states he has abdominal pain, diarrhea, chills, bodyaches. He was thinking these symptoms were withdrawal. He lives with his sister and she was recently ill along with the kids in the house. Advised pt that if he took his last dose of Percocet Friday evening then the symptoms started Fri morning would most likely not be withdrawal as he usally takes his next dose in the am. It may be viral. He should increase fluids and rest. When able to eat he should start with BRAT diet. Will forward to Dr. Ludnberg to see if pt can get a refill of Percocet early. Cell phone [phone] * Telephone Encounter - Shiloh Montemayor - 09/01/2009 8:20 AM CDT Sent to Triage. * Telephone Encounter - Shiloh Montemayor - 09/01/2009 8:10 AM CDTStaff Message copied by SHILOH MONTEMAYOR on FriSep 01, 2009 8:10 AM ------ Message from: RIVER HARPER Created: FriAug 31, 2009 3:55 PM Regarding: [place] return call use # below [phone] * Telephone Encounter - Mariel Meyer - 08/31/2009 4:55 PM CDT Tried calling patient several times, line constantly busy. Mariel Meyer ma * Telephone Encounter - Mariel Meyer - 08/31/2009 4:54 PM CDTStaff Message copied by MARIEL MEYER on FriAug 31, 2009 4:54 PM ------ Message from: RIVER HARPER Created: FriAug 31, 2009 3:55 PM Regarding: [place] return call use # below [phone] * Telephone Encounter - Mariel Meyer - 08/30/2009 3:51 PM CDT Left message on answering machine for patient to call back. Mariel Meyer ma * Telephone Encounter - Mariel Meyer - 08/30/2009 3:50 PM CDTStaff Message copied by MARIEL MEYER on FriAug 30, 2009 3:50 PM ------ Message from: DANA SIERRA Created: FriAug 30, 2009 1:09 PM Regarding: [place] PERCOSET Contact First & Last Name if other than the patient involved: PT Main reason for the request: RAN OUT OF HIS PERCOSET SINCE YESTERDAY AND THINKS HE MAY BE GOING THROUGH WITHDRAWAL, SWEATING AND CHILLS , STOMACH HURTS Expecting call back:YES May leave message: YES Please contact Patient at home Best time to call back: TODAY [phone] (home), (work) Alternate phone number: [phone] Dana Sierra documented in this encounter Plan of Treatment Not on file documented as of this encounter Visit Diagnoses Not on filedocumented in this encounter Care Teams Septic Tank Installer Relationship Specialty Start Date End Date Alejandro Cochran, MARBELLAC PCP - General 10/09/09 01/04/16 None PCP - General 06/20/09 10/08/09 Zackery Clark MD PCP - General Family Practice 01/05/16 04/11/19 Zackery Clark MD [address] [place] [address] PCP - Assigned PCP 08/17/17 01/19/19 Shi Hernandez MD [address] [place] [address] PCP - General Family Practice 04/12/19 Kanwal Martinez MD [address] [address] Ophthalmology 02/05/16 Malathi Shelton MD [address] [address] Ophthalmology 02/08/16 Patti Gannon, REMITTANCE CLERK Sales Support Administrator 08/19/17 08/31/17 Radha Leal MD [facility] [address] [facility] [place], [place] [address] Resident Student in organized health care education/training program 01/07/18 05/17/19 Hilary Negrete, ANDREE Nurse Coordinator Neurology 01/28/18 05/10/19 Zackery Clark MD [address] [address] Assigned PCP 08/17/17 10/30/19 Denilson Alfonso Chi, OD [address] [place] [address] Optometry 07/26/19 Tierra Cid APRN METAL TRADES INSTRUCTOR [facility] [address] [place] [address] Assigned PCP 10/31/19 11/01/22 Azeem Rowan, OD [address] [place] [address] [place] [address] Assigned Surgical Provider 09/08/20 08/04/21 documented as of this encounter
--- OUTSIDE RECORDS SUMMARY | 2024-06-13 23:33 | XMS_ITS | Encounter Summary ---
Author Organization [place] Address [address] [facility] [place] [address] Care Team Providers Care Textile Designs Sales Representative Name Role Phone Alejadnro Cochran PA-C Primary Care Provider [phone] Zackery Clark MD Primary Care Provide r Kanwal Martinez MD Unavailable Malathi Shelton MD Unavailable [phone] Patti Gannon WIRE PREPARATION WORKER Unavailable [phone] Radha Leal MD Unavailable Hilary Negrete RN Unavailable [phone] Zackery Clark MD Unavailable Zackery Clark MD Unavailable Shi Hernandez MD Primary Care Provider + [phone] Denilson Alfonso Chi OD Unavailable [phone] Tierra Cid CONTRACT ADMINISTRATION COORDINATOR WATER RESOURCES PROGRAM DIRECTOR Unavailable Azeem Rowan OD Unavailable [phone] Reason for Visit * Reason Onset Date Comments Outreach 08/14/2015 [facility] ATT 1 Encounter Details Date Type Department Care Team (Late st Contact Info) Description 08/14/[address] [address] Alejandro Cochran PA-C XXX NO INFO FOUND 12/12/2022 XXX [place] [address] Outreach (PHS ATT 1) Social History Tobacco Use Types Packs/Day Years [...] encounter Miscellaneous Notes * Telephone Encounter - Heather Braun - 08/14/2015 12:25 PM CDT 08/14/2015 Call Regarding Preventive Health Screening Colonoscopy Attempt 1 Message on voicemail Comments: Outreach Pantry Cook Heather Anthony documented in this encounter Plan of Treatment Not on file documented as of this encounter Visit Diagnoses Not on filedocumented in this encounter Care Teams Textile Designs Sales Representative Relationship Specialty Start Date End Date Alejandro Cochran PA-C PCP - General 10/09/09 01/04/16 Zackery Clark MD PCP - General Family Practice 01/05/16 04/11/19 Zackery Clark MD [address] [address] PCP - Assigned PCP 08/17/17 01/19/19 Shi Hernandez MD [address] [place] [address] PCP - General Family Practice 04/12/19 Kanwal Martinez MD 420 [facility] [address] [place] [address] Ophthalmology 02/05/16 Malathi Shelton MD 420 [facility] [address] [place] [address] Ophthalmology 02/08/16 Patti Gannon, WIRE PREPARATION WORKER Travel Assistant 08/19/17 08/31/17 Radha Leal MD [facility] [address] [id number] [place], [place] [address] Resident Student in organized health care education/training program 01/07/18 05/17/19 Hilary Negrete, ANDREE Nurse Coordinator Neurology 01/28/18 05/10/19 Zackery Clark MD [address] [id number] Assigned PCP 08/17/17 10/30/19 Denilson Alfonso Chi, OD [address] [place] [address] Optometry 07/26/19 Tierra Cid APRN WATER RESOURCES PROGRAM DIRECTOR [facility] [address] [place], [place] [id number] Assigned PCP 10/31/19 11/01/22 Azeem Rowan, OD [address] [place] [address] Assigned Surgical Provider 09/08/20 08/04/21 documented as of this encounter
--- OUTSIDE RECORDS SUMMARY | 2024-06-13 23:33 | XMS_ITS | Encounter Summary ---
Author Organization [place] Address [address] [facility] [place] [address] Care Team Providers Care Supervisor Molding Name Role Phone Zackery Clark MD Primary Care Provide r Kanwal Martinez MD Unavailable Malathi Shelton MD Unavailable [phone] Radha Leal MD Unavailable Hilary Negrete RN Unavailable [phone] Zackery Clark MD Unavailable Zackery Clark MD Unavailable Shi Hernandez MD Primary Care Provider [phone] Denilson Alfonso Chi OD Unavailable [phone] Tierra Cid APRN REINFORCEMENT MAKER Unavailable Azeem Rowan OD Unavailable [phone] Reason for Visit * Reason Onset Date Comments Hospital F/U 09/03/2017 Hospital F/U Dep ression, Unspecified Depression Type 2/1 Encounter Details Date Type Department Care Team (Late st Contact Info) Description 09/03/2017 Telephone [facility] [address] [place] [address] Zackery Clark MD [address] [address] Hospital F/U (Hospital F/U Depression, Unspecified Depression Type 2/1) Social History Tobacco Use Types Packs/Day Years [...] Telephone Encounter - Mariela Garcia RN - 09/03/2017 9:48 AM CDT Routing to care coordination. Multiple ER to hospital admissions this year. Thank you! EVELIN Sanchez, RN documented in this encounter Plan of Treatment Not on file documented as of this encounter Visit Diagnoses Not on filedocumented in this encounter Additional Health Concerns Assessment Noted Time PHQ-9 Depression Total Score: 27 017 3:02 PM CDT documented as of this encounter Care Teams Supervisor Molding Relationship Specialty Start Date End Date Zackery Clark MD PCP - General Family Practice 01/05/16 04/11/19 Zackery Clark MD [address] [address] PCP - Assigned PCP 08/17/17 01/19/19 Shi Hernandez MD [address] [place], [place] [address] PCP - General Family Practice 04/12/19 Kanwal Martinez MD [address] [place] [address] Ophthalmology 02/05/16 Malathi Shelton MD [address] [place] [address] [address] [place] [address] Ophthalmology 02/08/16 Radha Leal MD [facility] 909 [facility] [id number] [place], [place] [address] Resident Student in organized health care education/training program 01/07/18 05/17/19 Hilary Negrete RN Nurse Coordinator Neurology 01/28/18 05/10/19 [place] [address] [place] [id number] Assigned PCP 08/17/17 10/30/19 Denilson Alfonso Chi, OD [address] [place] [address] Optometry 07/26/19 Tierra Cid APRN REINFORCEMENT MAKER [facility] [address] [place] [address] Assigned PCP 10/31/19 11/01/22 Azeem Rowan OD [address] [place] [address] Assigned Surgical Provider 09/08/20 08/04/21 documented as of this encounter
[2024-06-13 23:35] LABS: D Dimer Quantitative* 0.21 ug/ml (0.00-0.50)
[2024-06-13] MEDS: NITROGLYCERIN 0.4 MG TAB.SUBL SUBLINGUAL (23:36)
[2024-06-13 23:44] LABS: PCR FLU A Negative PCR FLU A (Negative); PCR FLU B Negative PCR FLU B (Negative); PCR RSV Negative PCR RSV (Negative); SARS PCR* Negative SARS-CoV-2 (Negative)
[2024-06-13 23:47] LABS: Troponin, Point-of-Care* 0.01 ng/ml (0.01-0.04)
[2024-06-14 00:07] VITALS: BP 111/89; PULSE 104; RESP 22; O2SAT 96
[2024-06-14 01:10] VITALS: BP 130/90; PULSE 100; RESP 24; O2SAT 96
[2024-06-14] MEDS: HYDROmorphone 0.5 mg/0.5 ml inj 1 MG IVP (01:15)
== END 2024-06-14 03:08 | disposition home or self-care (01) ==
PROVIDERS: Family Medicine; Emergency Provider Emergency Medicine
DX: R07.9 Chest pain, unspecified (principal); R91.1 Solitary pulmonary nodule
CPT/HCPCS: 36415; 71046; 80048; 83880; 84484; 85025; 85379; 85610; 85730; 86140; 87631; 93005; 94640; 94761; 96361; 96374; 96375; 99284; 99285; A9270; J1170; J2270; J7030